=== PATIENT | male | born 1945 | race Two or more races ===

== ENCOUNTER 2016-10-19 08:23 | Inpatient (IN) | payer MEDICARE, BC ==
[~2016-10-19] VITALS: Ht 175.3 cm; Wt 71.9 kg
[2016-10-19] VITALS (26 sets, daily range): BP systolic 123–173; BP diastolic 72–110; PULSE 78–107; RESP 10–18; BMI 22.9
[2016-10-19] MEDS ORDERED: LIDOCAINE 1% (MDV) 20 ML INJ ONE (09:47)
[2016-10-19] MEDS ORDERED: FENTAnyl 50 MCG/ML VIAL ONE (09:47)
[2016-10-19] MEDS ORDERED: HEPARIN 1000 UNITS/ML 10 ML INJ ONE (09:47)
[2016-10-19] MEDS ORDERED: NITROGLYCERIN (IC) 100 MCG/ML INJ ONE (09:48)
[2016-10-19] MEDS ORDERED: MIDAZOLAM 1 MG/ML 2 ML INJ ONE ×2 (09:48→11:03)
[2016-10-19] MEDS ORDERED: VERAPAMIL 5 MG INJ ONE (09:48)
[2016-10-19] MEDS ORDERED: MEMA5TAB14 PO (10:29)
[2016-10-19] MEDS ORDERED: HYDR-3498 PO (10:29)
[2016-10-19] MEDS ORDERED: DOCU50CA8 PO (10:29)
[2016-10-19] MEDS ORDERED: ACET-2047 PO (10:29)
[2016-10-19] MEDS ORDERED: FAMO20TA18 PO (10:29)
[2016-10-19] MEDS ORDERED: ONDA2VIA31 IV (10:29)
[2016-10-19] MEDS ORDERED: ATOR40TA68 PO (10:29)
[2016-10-19] MEDS ORDERED: LORA2ORA2 PO (10:29)
[2016-10-19] MEDS ORDERED: QUET50TA16 PO (10:29)
[2016-10-19] MEDS ORDERED: SIN50200 PO (10:29)
[2016-10-19] MEDS ORDERED: ZINC113C9 TP (10:29)
[2016-10-19] MEDS ORDERED: MAGN2400 PO (10:29)
[2016-10-19] MEDS ORDERED: TRAZ50TA18 PO (10:29)
[2016-10-19] MEDS ORDERED: DIVA-16 PO ×2 (10:29)
[2016-10-19] MEDS ORDERED: FOLI1POW PO (10:29)
[2016-10-19] MEDS ORDERED: BISA5TAB6 PO (10:29)
[2016-10-19] MEDS ORDERED: [UNRECOGNIZED DRUG - CODE] PO (10:29)
[2016-10-19] MEDS ORDERED: ASPI325T4 PO (10:29)
[2016-10-19] MEDS ORDERED: GABA300S PO (10:29)
--- NOTE | 2016-10-19 10:30 | CONS ---
Date/Time of Note Date/Time of Note DATE: 10/19/16 TIME: 10:20 Assessment/Plan Assessment/Plan Chief Complaint/Hosp Course NSTEMI: Trop peaked at 120. Transient anterior ST elevation. Echo with EF 50% and LAD territory hypokinesis but no akinesis. Cath for evaluation. Parkinson's with dementia HTN HL -cath today for evaluation -ASA, lipitor -metoprolol -further recs based on cath findings Problems: Consultation Date/Type/Reason Admit Date/Time Oct 19, 2016 at 08:26 Initial Consult Date Type of Consultation: Cardiology 24 HR Interval Summary Free Text/Dictation 71 yo M with a h/o parkinson's with dementia, HTN, HL, who presented due to altered mentation. He was eventually found to have an NSTEMI. His second trop was 5 so an EKG was obtained and showed an anterior STEMI. He was supposed to be transferred to [facility] but he was refused as the ST elevations improved/ resolved. His troponins eventually peaked around 120. His repeat echo showed hypokinesis of the anterior wall/apex but no akinesis and EF of 50%. No q waves on EKG. The pt and family consented to cardiac cath so pt was transferred to the [facility] ICU and is planned to have a cardiac cath for evaluation. He had DEMETRIUS on this admission but Cr is now down to 1.0. The pt alert and mostly cooperative but he exhibits paranoid behavior. Currently no symptoms. Exam/Review of Systems Vital Signs Vitals Vital Signs Date Time Temp Pulse Resp B/P Pulse Ox O2 Delivery O2 Flow Rate FiO2 10/19/16 09:45 85 16 159/86 100 Room Air 10/19/16 08:03 98.6 Exam Constitutional: alert Psych: no complaints Head: atraumatic, normocephalic Neck: No jvd Respiratory: clear to auscultation, No crackles/rales Cardiovascular: regular rate and rhythm, No edema, No systolic murmur Gastrointestinal: non-tender, soft Neurological: nl speech, No nl mental status (agitated ) SUDARSHAN WAITE Oct 19, 2016 10:30
[2016-10-19] MEDS ORDERED: IOHEXOL 350MG/ML 50 ML BTL ONE (11:17)
[2016-10-19] MEDS ORDERED: BIVALIRUDIN 250MG /NS 50 ML 50 ML IVPB ONE (11:17)
[2016-10-19] MEDS ORDERED: ASPIRIN 325 MG TAB ONE (11:27)
[2016-10-19] MEDS ORDERED: CLOPIDOGREL 300 MG TAB ONE (11:27)
[2016-10-19] MEDS ORDERED: SOD CHLORIDE 0.9% 1,000 ML IV SCH (11:58)
[2016-10-19] MEDS ORDERED: morphine 2 MG INJ IV PRN (12:00)
--- NOTE | 2016-10-19 12:01 | OPR ---
Date/Time of Note Date/Time of Note DATE: 10/19/16 TIME: 12:00 Operative Report Free Text/Dictation Procedure Date:10/19/2016 Procedures Performed: 1)Left heart catheterization with selective left and right coronary angiography. 2)Left ventricle angiography 3)Balloon angioplasty and stenting of the prox RCA with a Synergy 3.0 x 16 drug- eluting stent. 4)Selective right femoral angiography and Perclose closure device placement. Pre-operative Diagnosis:NSTEMI Post-operative Diagnosis:NSTEMI Indications: Description of Procedure: After informed consent, the patient was brought to the cardiac catheterization lab. The procedure site was prepped and draped in usual manner. The patient was premedicated with a total of versed 3mg and fentanyl 75 mcg throughout the case. 2mL lidocaine was injected into the right wrist. Next using the posterior wall technique, the 6/5 macedonian sheath was inserted into the right radial artery. Due to severe subclavian tortuosity, the catheters could not be maneuvered to engage the coronaries and as this had a high likelihood of intervention, the decision was made to switch over to right femoral. 8 mL lidocaine was injected into the right groin. Next using the Seldinger technique , the 6 macedonian sheath was inserted into the right femoral artery. Next using the JL4 and Leon catheters, selective angiography of the left and right coronary arteries were obtained. The pigtail was then advanced into the ventricle and hemodynamics obtained. Left ventricle angiography was obtained. The decision was made to proceed with PCI of the RCA. Although the initial EKG had been concerning for anterior SC the baseline wander due to the pt's Parkinson's may explain it and he had inferior ST depressions. Also no clear lesion was identified in the LAD and the anterior wall motion on LV gram was normal. The prox RCA lesion and inferior wall motion abnormality seemed to be more clinically relevant. A 6 macedonian JR4 guide was advanced and engaged into the right coronary artery. After appropriate anticoagulation and antiplatelets were given, the BMW angioplasty wire was advanced past the lesion. Next the 2.5 X 12 balloon was used to dilate the lesion times 1 at a maximum of 12 sharla. Subsequently, the Synergy 3.0 x 16 stent was advanced to the lesion and deployed at 12 sharla. Next the stent was post dilated with the 3.25 X 8 noncompliant balloon times 3 at a maximum of 14 sharla. Final angiography revealed RHETT 3 flow, no edge dissection, and appropriate stent expansion. Next all equipment was removed and hemostasis was achieved by Perclose closure device in the groin after femoral angiography confirmed the sheath was in the common femoral artery and TR band for the right radial access site. Findings: Anatomy/Hemodynamics: Left main:large, no lesions LAD:ostial 30%, otherwise luminal irregularities Diagonal:luminal irregularities Circumflex:luminal irregularities Obtuse marginal: mid 30% RCA:prox to mid long stent with 70-80% eccentric ISR in the proximal segment. PDA:luminal irregularities LV angiography:EF 55%, hypokinesis of the mid to distal inferior wall., normal anterior motion LV:191/0 initially. No pullback gradient LVEDP:LVEDP 30 mmHg initially. 100mcg NTG through the catheter decreased the LVEDP to 2 mmHg. Contrast used:170 mL Fluoroscopy time:14 min Medications used: Versed 3mg Fentanyl 75 mcg radial cocktail: 5000 heparin, 200 NTG, 2.5 verapamil ASA 325mg plavix 600mg angiomax bolus plus drip NTG 100mcg x 1 Equipment used: 6 macedonian JR 4 guide BMW angioplasty wire 2 x 12 balloon Synergy 3.0 x 16 drug eluting stent 3.25x 8 noncompliant balloon Assessment: NSTEMI s/p PCI of prox RCA for in stent restenosis ?Transient anterior ST elevation.?artifact vs spasm vs recannalization. No significant LAD lesion and no corresponding wall motion abnormality Plan: -ICU observation -ASA 81mg indefinitely -plavix 75mg daily for 1 year -metoprolol, lipitor SUDARSHAN WAITE Oct 19, 2016 12:01
[2016-10-20] VITALS (24 sets, daily range): BP systolic 125–170; BP diastolic 69–108; PULSE 73–96; RESP 12–18
[2016-10-20] MEDS: ATORVASTATIN 40 MG TAB PO SCH ×2 (01:50→21:14)
[2016-10-20] MEDS: METOPROLOL 25 MG TAB PO SCH ×4 (01:51→21:14)
[2016-10-20 05:23] LABS: BASOPHILS % 0.2 % (0.0-2.0); EOSINOPHILS # 0.1 10^3/ul (0.0-0.5); EOSINOPHILS % 0.7 % (0.0-7.0); HEMATOCRIT 30.8 % (42.0-52.0); HEMOGLOBIN 10.1 g/dl (14.0-18.0); LYMPHOCYTES % 10.3 % (15.0-51.0); MEAN CORPUSCULAR HEMOGLOBIN 27.6 pg (29.0-33.0); MEAN CORPUSCULAR HGB CONC 32.8 g/dl (32.0-37.0); MEAN CORPUSCULAR VOLUME 84.2 fl (82.0-101.0); MEAN PLATELET VOLUME 11.3 fl (7.4-10.4); MONOCYTE # 0.6 10^3/ul (0.3-0.9); MONOCYTES % 6.7 % (0.0-11.0); NEUTROPHIL # 7.5 10^3/ul (1.6-7.5); NEUTROPHILS % 81.6 % (39.0-77.0); PLATELET COUNT 247 10^3/UL (140-415); RED BLOOD COUNT 3.66 10^6/ul (4.70-6.10); RED CELL DISTRIBUTION WIDTH 15.2 % (11.5-14.5); WHITE BLOOD COUNT 9.2 10^3/ul (4.8-10.8)
[2016-10-20 05:58] LABS: CALCIUM 9.4 mg/dl (8.4-10.2); CREATININE 1.01 mg/dl (0.61-1.24); MAGNESIUM 1.7 mg/dl (1.7-2.5); PHOSPHORUS 3.5 mg/dl (2.5-4.9); POTASSIUM 3.9 mmol/L (3.5-5.1)
[2016-10-20] MEDS ORDERED: HYDROCODONE/APAP (5/325) TAB PO PRN (08:00)
[2016-10-20] MEDS ORDERED: ACETAMINOPHEN 325 MG TAB PO PRN (08:00)
[2016-10-20] MEDS ORDERED: BISACODYL (EC) 5 MG TAB PO PRN (08:00)
--- NOTE | 2016-10-20 08:03 | QN ---
Documentation Comment pt seen and examined. h/p dictated KYLIE CONDON DO Oct 20, 2016 08:03
--- NOTE | 2016-10-20 08:03 | PN ---
Date/Time of Note Date/Time of Note DATE: 10/20/16 TIME: 07:56 Assessment/Plan VTE Prophylaxis VTE Prophylaxis Intervention: other Lines/Catheters IV Catheter Type (from Nrs): Peripheral IV Urinary Cath still in place: Yes Reason Cath still needed: other (indicate) Assessment/Plan Chief Complaint/Hosp Course 1. Non-STEMI status post cardiac cath with PCI to the RCA Continue current medical management with aspirin Plavix metoprolol Follow-up cardiology with recommendations Hypertension Continue current medical management Dyslipidemia Continue statin therapy Parkinson's disease with dementia Patient had CT scan outside hospital that showed increased ventricular size questionable hydrocephalus We will place a neurology consult for evaluation Consider MRI Dysphasia Places speech therapy evaluation Nonoliguric acute kidney injury Etiology is likely hemodynamics Renal function is improved with IV hydration Continue to monitor Hyponatremia Patient is a free water deficit of 1 L Continue to encourage free water intake Anemia Monitor H&H levels GI DVT prophylaxis Continue PPI and SCDs Bipolar disorder Continue valproic acid Problems: Subjective 24 Hr Interval Summary Free Text/Dictation Patient seen and examined No events overnight Patient status post cardiac cath with PCI Exam/Review of Systems Vital Signs Vitals Vital Signs Date Time Temp Pulse Resp B/P Pulse Ox O2 Delivery O2 Flow Rate FiO2 10/20/16 06:00 96 17 168/88 88 10/20/16 04:00 98.0 10/19/16 18:00 Room Air Intake and Output 10/19/16 10/19/16 10/20/16 15:00 23:00 07:00 Intake Total 300 ml 525 ml 1250 ml Output Total 690 ml 835 ml 596 ml Balance -390 ml -310 ml 654 ml Exam HEENT: Head is normocephalic, NECK: Supple. HEART: Irregular LUNGS: Show diminished breath sounds at base. ABDOMEN: Soft, nontender to palpation without rebound or guarding. EXTREMITIES: Negative for clubbing, cyanosis. DERMATOLOGIC: No rashes. MUSCULOSKELETAL: No joint effusions, NEUROLOGIC: No change in exam. Results Result Diagram: 10/20/16 0455 10/20/16 0455 Results 24 hrs Laboratory Tests Test 10/20/16 04:55 White Blood Count 9.2 Red Blood Count 3.66 L Hemoglobin 10.1 L Hematocrit 30.8 L Mean Corpuscular Volume 84.2 Mean Corpuscular Hemoglobin 27.6 L Mean Corpuscular Hemoglobin Concent 32.8 Red Cell Distribution Width 15.2 H Platelet Count 247 Mean Platelet Volume 11.3 H Neutrophils % 81.6 H Lymphocytes % 10.3 L Monocytes % 6.7 Eosinophils % 0.7 Basophils % 0.2 Nucleated Red Blood Cells % 0.0 Neutrophils # 7.5 Lymphocytes # 1.0 Monocytes # 0.6 Eosinophils # 0.1 Basophils # 0.0 Nucleated Red Blood Cells # 0.0 Sodium Level 148 H Potassium Level 3.9 Chloride Level 114 H Carbon Dioxide Level 19 L Anion Gap 19 H Blood Urea Nitrogen 12 Creatinine 1.01 Glucose Level 85 Calcium Level 9.4 Phosphorus Level 3.5 Magnesium Level 1.7 Medications Medications Current Medications Clopidogrel Bisulfate (plaVIX) 75 mg DAILY PO ; Start 10/20/16 at 09:00 Aspirin (Aspirin) 81 mg DAILY PO ; Start 10/20/16 at 09:00 Atorvastatin Calcium (Lipitor) 40 mg HS PO Last administered on 10/20/16 01:50 ; Admin Dose 40 MG; Start 10/19/16 at 21:00 Metoprolol Tartrate (Lopressor) 25 mg BID PO Last administered on 10/20/16 01: 51; Admin Dose 25 MG; Start 10/19/16 at 21:00 Morphine Sulfate (morphine) 2 mg Q2H PRN IV FOR NON CARDIAC PAIN (4-10); Start 10/19/16 at 12:00 KYLIE CONDON DO Oct 20, 2016 08:03
[2016-10-20 08:53] LABS: BILIRUBIN,INDIRECT 0.2 mg/dl (0-1.1); BILIRUBIN,TOTAL 0.2 mg/dl (0.2-1.3); TOTAL PROTEIN 5.6 g/dl (6.1-8.1)
[2016-10-20] MEDS ORDERED: CARBIDOPA/LEVODOPA 50-200 (CR) TAB PO SCH ×2 (09:00)
[2016-10-20] MEDS: ASPIRIN 81 MG TAB PO SCH ×2 (09:00→09:44)
[2016-10-20] MEDS: GABAPENTIN 300 MG CAP PO SCH ×4 (09:00→21:14)
[2016-10-20] MEDS: CLOPIDOGREL 75 MG TAB PO SCH ×3 (09:00→17:23)
[2016-10-20] MEDS ORDERED: DIVALPROEX (EC) 500 MG TAB PO SCH (09:00)
[2016-10-20] MEDS: DIVALPROEX (EC) 500 MG TAB PO SCH ×2 (09:00→18:26)
[2016-10-20] MEDS ORDERED: ONDANSETRON 4 MG INJ IV PRN (09:30)
[2016-10-20] MEDS: DOCUSATE SODIUM 100 MG CAP PO SCH ×2 (09:30→09:48)
[2016-10-20] MEDS: LORAZEPAM 0.5 MG TAB PO SCH ×3 (09:45→21:14)
[2016-10-20] MEDS: FAMOTIDINE 20 MG TAB PO SCH ×2 (09:45→21:14)
[2016-10-20] MEDS: DIVALPROEX (EC) 250 MG TAB PO SCH ×3 (09:45→14:00)
[2016-10-20] MEDS: MEMANTINE 5 MG TAB PO SCH ×3 (10:00→21:00)
[2016-10-20] MEDS ORDERED: CARBIDOPA/LEVODOPA 25-100 (CR) TAB PO SCH (10:00)
--- NOTE | 2016-10-20 10:33 | HP ---
DATE OF ADMISSION: 10/19/2016 CHIEF COMPLAINT: Chest pain, non-ST elevation myocardial infarction. HISTORY OF PRESENT ILLNESS: This is a 71-year-old male with a past medical history of Parkinson's, dementia, history of hypertension, dyslipidemia, history of bipolar disorder, who is being brought to [facility] to undergo cardiac catheterization. The patient's history began several days ago when the patient presented to an outside hospital and was found to have a non-STEMI. The patient had an elevated troponin. The patient, at that time, was supposed to be transferred to [facility] but refused. The patient's troponin at the outside facility peaked at 120. The patient had an echo, which showed a 50-percent ejection fraction and anterior wall akinesis. The patient, as a result, was medically managed and transferred to [facility] to undergo elective cardiac catheterization. It should be noted that at the outside facility, the patient had a CT scan of the brain, which showed enlarged ventricles, which may be due to atrophy versus questionable hydrocephalus. The patient was also noted to be in acute injury and was given IV fluids. Upon arrival to [facility], the patient was placed in intensive care unit for eventual cardiac catheterization. Upon my evaluation, the patient at this time is currently stable. Denies any fevers, chills, nausea, vomiting. The patient does have underlying dementia, and history was obtained by speaking to the patient's . PAST MEDICAL HISTORY: As stated above, history of Parkinson's, history of dyslipidemia, history of GERD, history of bipolar disorder, history of hypertension. PAST SURGICAL HISTORY: Previous cardiac catheterization. ALLERGIES: THE PATIENT IS ALLERGIC TO AMOXICILLIN. FAMILY HISTORY: Noncontributory. SOCIAL HISTORY: Does not drink, smoke, or do drugs. MEDICATIONS: Reviewed and reconciled. REVIEW OF SYSTEMS: A 14-point review of systems was done. There were no pertinent positives or negatives, other than noted in the HPI. PHYSICAL EXAMINATION: VITALS: Blood pressure 125/71, respirations 13, pulse ox 73, temperature 98.6. HEENT: Head is normocephalic. NECK: Supple. HEART: Regular rate. LUNGS: Show diminished breath sounds at the base. ABDOMEN: Soft, nontender to palpation. No rebound or guarding. EXTREMITIES: Negative for clubbing, cyanosis, or edema. DERMATOLOGIC: No rashes. MUSCULOSKELETAL: No joint effusion. NEUROLOGIC: The patient has a tremor of his hand, noted rigidity. LABORATORY: Shows a white count of 9.2, hemoglobin 10.1, hematocrit 30.8, platelet count 247. Sodium 148, potassium 2.9, chloride 114, BUN 12, creatinine 1.01. ASSESSMENT AND PLAN: This is a 71-year-old male who presents with: 1. Non-ST elevation myocardial. The patient is pending cardiac catheterization. Will follow up with cardiology for recommendations. 2. Hypertension. The patient will continue on current blood pressure regimen. 3. Parkinson's disease with dementia. The patient had an outside CT scan which showed increased ventricular size, questionable hydrocephalus. Plan is to get a neurologic consult for evaluation. Consider MRI. Continue to monitor. Continue current Parkinson's medication. 4. Bipolar disorder. Continue Valproic acid. 5. Dysphagia. We will place a speech therapy evaluation. 6. Dyslipidemia. Continue statin therapy. 7. Non-oliguric acute kidney injury. Etiology is likely from hemodynamics. We will check a urinalysis. Check urine electrolytes. Monitor renal function. 8. Anemia. Monitor hemoglobin and hematocrit levels. 9. Deep vein thrombosis prophylaxis. I spent 25 minutes with [id number] time with the patient's and the patient at bedside. The patient is a full code. Dictated By: Juanjose Alarcon DO /debby/cas /Document#: [id number]
[2016-10-20] MEDS: AL HYDROX/MG HYDROX/SIMETH 30 ML CUP PO SCH ×3 (12:00→23:20)
[2016-10-20] MEDS: CARBIDOPA/LEVODOPA 25-100 (CR) TAB PO SCH ×2 (12:15→21:15)
--- NOTE | 2016-10-20 12:26 | CONS ---
Date/Time of Note Date/Time of Note DATE: 10/20/16 TIME: 12:10 Assessment/Plan Assessment/Plan Chief Complaint/Hosp Course NSTEMI: Trop peaked at 120. Transient anterior ST elevation?. Echo with EF 50% and possible LAD territory hypokinesis but no akinesis. Cath showed no LAD lesion but a proximal RCA lesion and inferior wall motion abnormalities. A drug eluting stent was placed due to in stent restenosis. Pt was agreeable to taking meds prior to cardiac cath but now refuses. Parkinson's with dementia HTN HL -psych eval for competence -will try to get a hold of his to ask her for assistance. He is more cooperative at times and may be more agreeable to taking meds -ASA, plavix (most crucial to give to pt) -lipitor -metoprolol Problems: Consultation Date/Type/Reason Admit Date/Time Oct 19, 2016 at 08:26 Type of Consultation: Cardiology 24 HR Interval Summary Free Text/Dictation No o/n events. Refuses to take any meds and states he understands the risks including [place] and . I tried to reason with him for a long time. I could not get a hold of his . Exam/Review of Systems Vital Signs Vitals Vital Signs Date Time Temp Pulse Resp B/P Pulse Ox O2 Delivery O2 Flow Rate FiO2 10/20/16 10:00 89 15 170/93 89 Room Air 10/20/16 08:00 98.2 Intake and Output 10/19/16 10/19/16 10/20/16 15:00 23:00 07:00 Intake Total 300 ml 525 ml 1250 ml Output Total 690 ml 835 ml 596 ml Balance -390 ml -310 ml 654 ml Exam Constitutional: alert, No oriented Psych: no complaints Head: atraumatic, normocephalic Neck: No jvd Respiratory: clear to auscultation, No crackles/rales Cardiovascular: regular rate and rhythm, No edema, No systolic murmur Extremities: other (unable to examine groin as pt would not allow ) Neurological: No nl mental status Results Result Diagram: 10/20/16 0455 10/20/16 0455 Results 24 hrs Laboratory Tests Test 10/20/16 04:55 White Blood Count 9.2 Red Blood Count 3.66 L Hemoglobin 10.1 L Hematocrit 30.8 L Mean Corpuscular Volume 84.2 Mean Corpuscular Hemoglobin 27.6 L Mean Corpuscular Hemoglobin Concent 32.8 Red Cell Distribution Width 15.2 H Platelet Count 247 Mean Platelet Volume 11.3 H Neutrophils % 81.6 H Lymphocytes % 10.3 L Monocytes % 6.7 Eosinophils % 0.7 Basophils % 0.2 Nucleated Red Blood Cells % 0.0 Neutrophils # 7.5 Lymphocytes # 1.0 Monocytes # 0.6 Eosinophils # 0.1 Basophils # 0.0 Nucleated Red Blood Cells # 0.0 Sodium Level 148 H Potassium Level 3.9 Chloride Level 114 H Carbon Dioxide Level 19 L Anion Gap 19 H Blood Urea Nitrogen 12 Creatinine 1.01 Glucose Level 85 Calcium Level 9.4 Phosphorus Level 3.5 Magnesium Level 1.7 Total Bilirubin 0.2 Direct Bilirubin 0.00 Indirect Bilirubin 0.2 Aspartate Amino Transf (AST/SGOT) 63 H Alanine Aminotransferase (ALT/SGPT) 71 H Alkaline Phosphatase 48 Total Protein 5.6 L Albumin 3.0 L Medications Medications Current Medications Clopidogrel Bisulfate (plaVIX) 75 mg DAILY PO ; Start 10/20/16 at 09:00 Aspirin (Aspirin) 81 mg DAILY PO ; Start 10/20/16 at 09:00 Atorvastatin Calcium (Lipitor) 40 mg HS PO Last administered on 10/20/16 01:50 ; Admin Dose 40 MG; Start 10/19/16 at 21:00 Metoprolol Tartrate (Lopressor) 25 mg BID PO Last administered on 10/20/16 01: 51; Admin Dose 25 MG; Start 10/19/16 at 21:00 Morphine Sulfate (morphine) 2 mg Q2H PRN IV FOR NON CARDIAC PAIN (4-10); Start 10/19/16 at 12:00 Acetaminophen (Tylenol Tab) 650 mg Q6H PRN PO PAIN AND OR ELEVATED TEMP; Start 10/20/16 at 08:00 Bisacodyl (Dulcolax) 10 mg DAILY PRN PO CONSTIPATION; Start 10/20/16 at 08:00 Divalproex Sodium (Depakote) 500 mg DAILY@19 PO ; Start 10/20/16 at 09:00 Famotidine (Pepcid) 20 mg BID PO Last administered on 10/20/16 09:45; Admin Dose 20 MG; Start 10/20/16 at 09:00 Lorazepam (Ativan) 0.25 mg TID PO ; Start 10/20/16 at 09:45 Memantine (Namenda) 5 mg BID PO ; Start 10/20/16 at 10:00 Ondansetron HCl (Zofran Inj) 4 mg Q6H PRN IV NAUSEA; Start 10/20/16 at 09:30 Quetiapine Fumarate (Seroquel) 50 mg HS PO ; Start 10/20/16 at 21:00 Trazodone HCl (Desyrel) 25 mg QHS PO ; Start 10/20/16 at 21:00 Docusate Sodium (Colace) 100 mg DAILY PO ; Start 10/20/16 at 09:30 Folic Acid (Folic Acid) 1 mg DAILY PO ; Start 10/21/16 at 09:30 Gabapentin (Neurontin) 300 mg TID PO ; Start 10/20/16 at 09:00 Al Hydrox/Mg Hydrox/Simethicone (Mag-Al Plus) 30 ml Q6 PO ; Start 10/20/16 at 12 :00 Magnesium Hydroxide (Milk Of Mag) 30 ml HS PO ; Start 10/20/16 at 21:00 Divalproex Sodium (Depakote) 250 mg BID@09,14 PO ; Start 10/20/16 at 10:30 Carbidopa/Levodopa (Sinemet Cr (25/ 100)) 1 tab TID PO ; Start 10/20/16 at 13:00 SUDARSHAN WAITE Oct 20, 2016 12:26
[2016-10-20] MEDS: MAGNESIUM HYDROXIDE 30ML CUP PO SCH (21:00)
[2016-10-20] MEDS ORDERED: traZODone 50 MG TAB PO SCH (21:00)
[2016-10-20] MEDS ORDERED: QUETIAPINE 25 MG TAB PO SCH (21:00)
[2016-10-20 21:59] LABS: ADD UMIC NO; UR ASCORBIC ACID NEGATIVE (NEGATIVE); UR BILIRUBIN (Dip) NEGATIVE (NEGATIVE); UR BLOOD (Dip) NEGATIVE (NEGATIVE); UR CLARITY CLEAR (CLEAR); UR COLOR YELLOW (YELLOW); UR GLUCOSE (Dip) NEGATIVE (NEGATIVE); UR KETONES (Dip) 1+ mg/dL (NEGATIVE); UR LEUKOCYTE ESTERASE (Dip) NEGATIVE Leu/ul (NEGATIVE); UR NITRITE (Dip) NEGATIVE (NEGATIVE); UR SPECIFIC GRAVITY (Dip) 1.014 (1.003-1.030); UR TOTAL PROTEIN (Dip) NEGATIVE (NEGATIVE); UR UROBILINOGEN (Dip) 1+ mg/dL (NEGATIVE)
--- NOTE | 2016-10-20 22:15 | CONS ---
Date/Time of Note Date/Time of Note DATE: 10/20/16 TIME: 22:12 Assessment Additional comments: full consultaion dictated [id number] Dementia, parkinsonism, ventriculomegaly on CT - not acute. Pt is agitated at times, paranoid, not cooperative, per nursing ,won't tolerate MRI, could be done on outpt basis. I'll restart home stroger dose seroquel, zyprexa, as per [facility] notes JULIETA PAGE MD Oct 20, 2016 22:15
[2016-10-20] MEDS: OLANZAPINE 5 MG TAB PO SCH (23:20)
[2016-10-21] VITALS (39 sets, daily range): BP systolic 84–169; BP diastolic 47–100; PULSE 48–150; RESP 8–24
[2016-10-21] MEDS: AL HYDROX/MG HYDROX/SIMETH 30 ML CUP PO SCH ×4 (05:09→23:21)
--- NOTE | 2016-10-21 08:18 | PN ---
Date/Time of Note Date/Time of Note DATE: 10/21/16 TIME: 08:16 Assessment/Plan VTE Prophylaxis VTE Prophylaxis Intervention: other Lines/Catheters IV Catheter Type (from Nrs): Saline Lock Urinary Cath still in place: Yes Reason Cath still needed: other (indicate) Assessment/Plan Chief Complaint/Hosp Course 1. Non-STEMI status post cardiac cath with PCI to the RCA Continue current medical management with aspirin Plavix metoprolol Patient is noncompliant with medications Neurology evaluated patient, telemetry psych pending May require sedation with NG tube placement Follow-up cardiology with recommendations Hypertension Continue current medical management Dyslipidemia Continue statin therapy Parkinson's disease with dementia Patient had CT scan outside hospital that showed increased ventricular size questionable hydrocephalus Appreciate neurology evaluation Patient will not tolerate MRI Dysphasia Places speech therapy evaluation Nonoliguric acute kidney injury Etiology is likely hemodynamics Renal function is improved with IV hydration Continue to monitor Hypernatremia Patient is a free water deficit of 1 L Continue to encourage free water intake Anemia Monitor H&H levels GI DVT prophylaxis Continue PPI and SCDs Bipolar disorder Continue valproic acid Transaminitis Possibly medication related To monitor Problems: Subjective 24 Hr Interval Summary Free Text/Dictation Patient is refusing to take oral medications Discussed case with cardiology patient may require sedation with NG tube placement in order to be given Plavix Neurology consulted appreciate the recommendations A telemetry psych consult was placed Exam/Review of Systems Vital Signs Vitals Vital Signs Date Time Temp Pulse Resp B/P Pulse Ox O2 Delivery O2 Flow Rate FiO2 10/21/16 06:00 139/69 100 Room Air 10/21/16 05:00 80 14 10/21/16 04:00 98.2 Intake and Output 10/20/16 10/20/16 10/21/16 15:00 23:00 07:00 Intake Total 200 ml 100 ml 100 ml Output Total 835 ml 435 ml 380 ml Balance -635 ml -335 ml -280 ml Exam HEENT: Head is normocephalic, NECK: Supple. HEART: Irregular LUNGS: Show diminished breath sounds at base. ABDOMEN: Soft, nontender to palpation without rebound or guarding. EXTREMITIES: Negative for clubbing, cyanosis. DERMATOLOGIC: No rashes. MUSCULOSKELETAL: No joint effusions, NEUROLOGIC: No change in exam. Results Result Diagram: 10/20/16 0455 10/20/16 0455 Results 24 hrs Laboratory Tests Test 10/20/16 18:15 Urine Color YELLOW Urine Clarity CLEAR Urine pH 5.0 Urine Specific [place] 1.014 Urine Ketones 1+ H Urine Nitrite NEGATIVE Urine Bilirubin NEGATIVE Urine Urobilinogen 1+ H Urine Leukocyte Esterase NEGATIVE Urine Hemoglobin NEGATIVE Urine Random Creatinine 50.15 Urine Random Sodium 111 H Urine Glucose NEGATIVE Urine Total Protein 20.0 H Medications Medications Current Medications Clopidogrel Bisulfate (plaVIX) 75 mg DAILY PO Last administered on 10/20/16 17 :23; Admin Dose 75 MG; Start 10/20/16 at 09:00 Aspirin (Aspirin) 81 mg DAILY PO ; Start 10/20/16 at 09:00 Atorvastatin Calcium (Lipitor) 40 mg HS PO Last administered on 10/20/16 21:14 ; Admin Dose 40 MG; Start 10/19/16 at 21:00 Metoprolol Tartrate (Lopressor) 25 mg BID PO Last administered on 10/20/16 21: 14; Admin Dose 25 MG; Start 10/19/16 at 21:00 Morphine Sulfate (morphine) 2 mg Q2H PRN IV FOR NON CARDIAC PAIN (4-10); Start 10/19/16 at 12:00 Acetaminophen (Tylenol Tab) 650 mg Q6H PRN PO PAIN AND OR ELEVATED TEMP; Start 10/20/16 at 08:00 Bisacodyl (Dulcolax) 10 mg DAILY PRN PO CONSTIPATION; Start 10/20/16 at 08:00 Divalproex Sodium (Depakote) 500 mg DAILY@19 PO ; Start 10/20/16 at 09:00 Famotidine (Pepcid) 20 mg BID PO Last administered on 10/20/16 21:14; Admin Dose 20 MG; Start 10/20/16 at 09:00 Lorazepam (Ativan) 0.25 mg TID PO Last administered on 10/20/16 21:14; Admin Dose 0.25 MG; Start 10/20/16 at 09:45 Memantine (Namenda) 5 mg BID PO ; Start 10/20/16 at 10:00 Ondansetron HCl (Zofran Inj) 4 mg Q6H PRN IV NAUSEA; Start 10/20/16 at 09:30 Trazodone HCl (Desyrel) 25 mg QHS PO Last administered on 10/20/16 21:15; Admin Dose 25 MG; Start 10/20/16 at 21:00 Docusate Sodium (Colace) 100 mg DAILY PO ; Start 10/20/16 at 09:30 Folic Acid (Folic Acid) 1 mg DAILY PO ; Start 10/21/16 at 09:30 Gabapentin (Neurontin) 300 mg TID PO Last administered on 10/20/16 21:14; Admin Dose 300 MG; Start 10/20/16 at 09:00 Al Hydrox/Mg Hydrox/Simethicone (Mag-Al Plus) 30 ml Q6 PO ; Start 10/20/16 at 12 :00 Magnesium Hydroxide (Milk Of Mag) 30 ml HS PO ; Start 10/20/16 at 21:00 Divalproex Sodium (Depakote) 250 mg BID@,14 PO ; Start 10/20/16 at 10:30 Carbidopa/Levodopa (Sinemet Cr (25/ 100)) 1 tab TID PO Last administered on 21:15; Admin Dose 1 TAB; Start 10/20/16 at 13:00 Quetiapine Fumarate (Seroquel) 100 mg TID PO ; Start 10/21/16 at 09:00 Olanzapine (Zyprexa) 7.5 mg BID PO ; Start 10/20/16 at 23:30 KYLIE CONDON DO Oct 21, 2016 08:18
[2016-10-21] MEDS: DOCUSATE SODIUM 100 MG CAP PO SCH (09:00)
[2016-10-21] MEDS: FOLIC ACID 1 MG TAB PO SCH (09:30)
[2016-10-21] MEDS: CLOPIDOGREL 75 MG TAB PO SCH (09:51)
[2016-10-21] MEDS: GABAPENTIN 300 MG CAP PO SCH ×3 (09:51→21:01)
[2016-10-21] MEDS: MEMANTINE 5 MG TAB PO SCH ×2 (09:52→21:00)
[2016-10-21] MEDS: OLANZAPINE 5 MG TAB PO SCH (09:52)
[2016-10-21] MEDS: FAMOTIDINE 20 MG TAB PO SCH ×2 (09:52→21:01)
[2016-10-21] MEDS: ASPIRIN 81 MG TAB PO SCH (09:52)
[2016-10-21] MEDS: METOPROLOL 25 MG TAB PO SCH ×2 (09:52→21:00)
[2016-10-21] MEDS: QUETIAPINE 100 MG TAB PO SCH ×2 (09:52→13:33)
[2016-10-21] MEDS: CARBIDOPA/LEVODOPA 25-100 (CR) TAB PO SCH ×3 (09:52→21:01)
[2016-10-21] MEDS: DIVALPROEX (EC) 250 MG TAB PO SCH ×2 (09:59→13:33)
[2016-10-21] MEDS: LORAZEPAM 0.5 MG TAB PO SCH ×3 (09:59→21:00)
[2016-10-21 10:46] LABS: BASOPHILS % 0.4 % (0.0-2.0); EOSINOPHILS # 0.1 10^3/ul (0.0-0.5); EOSINOPHILS % 0.6 % (0.0-7.0); HEMATOCRIT 28.9 % (42.0-52.0); HEMOGLOBIN 9.3 g/dl (14.0-18.0); LYMPHOCYTES # 0.8 10^3/ul (0.8-2.9); LYMPHOCYTES % 10.5 % (15.0-51.0); MEAN CORPUSCULAR HEMOGLOBIN 27.3 pg (29.0-33.0); MEAN CORPUSCULAR HGB CONC 32.2 g/dl (32.0-37.0); MEAN CORPUSCULAR VOLUME 84.8 fl (82.0-101.0); MEAN PLATELET VOLUME 11.5 fl (7.4-10.4); MONOCYTE # 0.5 10^3/ul (0.3-0.9); MONOCYTES % 6.6 % (0.0-11.0); NEUTROPHIL # 6.5 10^3/ul (1.6-7.5); NEUTROPHILS % 81.1 % (39.0-77.0); PLATELET COUNT 237 10^3/UL (140-415); RED BLOOD COUNT 3.41 10^6/ul (4.70-6.10); RED CELL DISTRIBUTION WIDTH 15.6 % (11.5-14.5)
[2016-10-21 11:11] LABS: CALCIUM 9.5 mg/dl (8.4-10.2); CREATININE 0.89 mg/dl (0.61-1.24); POTASSIUM 3.6 mmol/L (3.5-5.1)
--- NOTE | 2016-10-21 13:00 | CONS ---
Date/Time of Note Date/Time of Note DATE: 10/21/16 TIME: 12:58 Assessment/Plan Assessment/Plan Chief Complaint/Hosp Course NSTEMI: Trop peaked at 120. Transient anterior ST elevation?. Echo with EF 50% and possible LAD territory hypokinesis but no akinesis. Cath showed no LAD lesion but a proximal RCA lesion and inferior wall motion abnormalities. A drug eluting stent was placed due to in-stent restenosis. Pt was agreeable to taking meds prior to cardiac cath, then refused. Now was convinced to take it. Compliance remains an issue care home. Parkinson's with dementia: refusing to take meds at times HTN HL -f/u psych eval -ASA, plavix (most crucial to give to pt) -lipitor -metoprolol Problems: Consultation Date/Type/Reason Admit Date/Time Oct 19, 2016 at 08:26 Type of Consultation: Cardiology 24 HR Interval Summary Free Text/Dictation Somehow took his plavix last night and all his meds this am (crushed into his orange juice). Pt had morphine and is sleeping. Tele psych eval pending Exam/Review of Systems Vital Signs Vitals Vital Signs Date Time Temp Pulse Resp B/P Pulse Ox O2 Delivery O2 Flow Rate FiO2 10/21/16 11:00 64 10 116/65 100 Room Air 10/21/16 08:00 98.3 Intake and Output 10/20/16 10/20/16 10/21/16 15:00 23:00 07:00 Intake Total 200 ml 100 ml 100 ml Output Total 835 ml 435 ml 430 ml Balance -635 ml -335 ml -330 ml Exam Constitutional: No alert (sleeping ) Head: atraumatic, normocephalic Neck: No jvd Respiratory: clear to auscultation, No crackles/rales Cardiovascular: regular rate and rhythm, No edema, No systolic murmur Gastrointestinal: non-tender, soft, No distended Extremities: other (right femoral site without hematoma ) Results Result Diagram: 10/21/16 1033 10/21/16 1033 Results 24 hrs Laboratory Tests Test 10/20/16 18:15 10/21/16 10:33 Urine Color YELLOW Urine Clarity CLEAR Urine pH 5.0 Urine Specific [place] 1.014 Urine Ketones 1+ H Urine Nitrite NEGATIVE Urine Bilirubin NEGATIVE Urine Urobilinogen 1+ H Urine Leukocyte Esterase NEGATIVE Urine Hemoglobin NEGATIVE Urine Random Creatinine 50.15 Urine Random Sodium 111 H Urine Glucose NEGATIVE Urine Total Protein 20.0 H White Blood Count 8.0 Red Blood Count 3.41 L Hemoglobin 9.3 L Hematocrit 28.9 L Mean Corpuscular Volume 84.8 Mean Corpuscular Hemoglobin 27.3 L Mean Corpuscular Hemoglobin Concent 32.2 Red Cell Distribution Width 15.6 H Platelet Count 237 Mean Platelet Volume 11.5 H Neutrophils % 81.1 H Lymphocytes % 10.5 L Monocytes % 6.6 Eosinophils % 0.6 Basophils % 0.4 Nucleated Red Blood Cells % 0.0 Neutrophils # 6.5 Lymphocytes # 0.8 Monocytes # 0.5 Eosinophils # 0.1 Basophils # 0.0 Nucleated Red Blood Cells # 0.0 Sodium Level 145 H Potassium Level 3.6 Chloride Level 109 Carbon Dioxide Level 20 L Anion Gap 20 H Blood Urea Nitrogen 15 Creatinine 0.89 Glucose Level 82 Calcium Level 9.5 Medications Medications Current Medications Clopidogrel Bisulfate (plaVIX) 75 mg DAILY PO Last administered on 10/21/16 09 :51; Admin Dose 75 MG; Start 10/20/16 at 09:00 Aspirin (Aspirin) 81 mg DAILY PO Last administered on 10/21/16 09:52; Admin Dose 81 MG; Start 10/20/16 at 09:00 Atorvastatin Calcium (Lipitor) 40 mg HS PO Last administered on 10/20/16 21:14 ; Admin Dose 40 MG; Start 10/19/16 at 21:00 Metoprolol Tartrate (Lopressor) 25 mg BID PO Last administered on 10/21/16 09: 52; Admin Dose 25 MG; Start 10/19/16 at 21:00 Morphine Sulfate (morphine) 2 mg Q2H PRN IV FOR NON CARDIAC PAIN (4-10) Last administered on 10/21/16 09:51; Admin Dose 2 MG; Start 10/19/16 at 12:00 Acetaminophen (Tylenol Tab) 650 mg Q6H PRN PO PAIN AND OR ELEVATED TEMP; Start 10/20/16 at 08:00 Bisacodyl (Dulcolax) 10 mg DAILY PRN PO CONSTIPATION; Start 10/20/16 at 08:00 Divalproex Sodium (Depakote) 500 mg DAILY@19 PO ; Start 10/20/16 at 09:00 Famotidine (Pepcid) 20 mg BID PO Last administered on 10/21/16 09:52; Admin Dose 20 MG; Start 10/20/16 at 09:00 Lorazepam (Ativan) 0.25 mg TID PO Last administered on 10/21/16 09:59; Admin Dose 0.25 MG; Start 10/20/16 at 09:45 Memantine (Namenda) 5 mg BID PO Last administered on 10/21/16 09:52; Admin Dose 5 MG; Start 10/20/16 at 10:00 Ondansetron HCl (Zofran Inj) 4 mg Q6H PRN IV NAUSEA; Start 10/20/16 at 09:30 Trazodone HCl (Desyrel) 25 mg QHS PO Last administered on 10/20/16 21:15; Admin Dose 25 MG; Start 10/20/16 at 21:00 Docusate Sodium (Colace) 100 mg DAILY PO ; Start 10/20/16 at 09:30 Folic Acid (Folic Acid) 1 mg DAILY PO ; Start 10/21/16 at 09:30 Gabapentin (Neurontin) 300 mg TID PO Last administered on 10/21/16 09:51; Admin Dose 300 MG; Start 10/20/16 at 09:00 Al Hydrox/Mg Hydrox/Simethicone (Mag-Al Plus) 30 ml Q6 PO ; Start 10/20/16 at 12 :00 Magnesium Hydroxide (Milk Of Mag) 30 ml HS PO ; Start 10/20/16 at 21:00 Divalproex Sodium (Depakote) 250 mg BID@,14 PO Last administered on 09:59; Admin Dose 250 MG; Start 10/20/16 at 10:30 Carbidopa/Levodopa (Sinemet Cr (25/ 100)) 1 tab TID PO Last administered on 09:52; Admin Dose 1 TAB; Start 10/20/16 at 13:00 Quetiapine Fumarate (Seroquel) 100 mg TID PO Last administered on 10/21/16 09: 52; Admin Dose 100 MG; Start 10/21/16 at 09:00 Olanzapine (Zyprexa) 7.5 mg BID PO Last administered on 10/21/16 09:52; Admin Dose 7.5 MG; Start 10/20/16 at 23:30; Status Future hold SUDARSHAN WAITE Oct 21, 2016 13:00
[2016-10-21] MEDS: DIVALPROEX (EC) 500 MG TAB PO SCH (17:21)
[2016-10-21] MEDS ORDERED: BIVALIRUDIN 250MG /NS 50 ML 50 ML IVPB ONE (18:02)
[2016-10-21] MEDS ORDERED: MAGNESIUM SULFATE 2 GM/50 ML 50 ML ONE (18:14)
[2016-10-21] MEDS ORDERED: MAGNESIUM SULFATE 2 GM/50 ML 50 ML IVPB ONE ×2 (18:30→20:30)
[2016-10-21 19:31] LABS: CALCIUM 9.2 mg/dl (8.4-10.2); CREATININE 0.92 mg/dl (0.61-1.24); POTASSIUM 3.5 mmol/L (3.5-5.1)
[2016-10-21] MEDS: DOPamine-D5W 1.6 MG/ML 250 ML IV SCH (20:04)
[2016-10-21] MEDS: ATORVASTATIN 40 MG TAB PO SCH (21:00)
[2016-10-21] MEDS: MAGNESIUM HYDROXIDE 30ML CUP PO SCH (21:00)
[2016-10-22] VITALS (93 sets, daily range): BP systolic 76–134; BP diastolic 42–96; PULSE 57–135; RESP 0–39
[2016-10-22 01:47] LABS: CALCIUM 9.7 mg/dl (8.4-10.2); CREATININE 0.91 mg/dl (0.61-1.24); POTASSIUM 3.8 mmol/L (3.5-5.1)
[2016-10-22] MEDS: DOPamine-D5W 1.6 MG/ML 250 ML IV SCH (05:09)
[2016-10-22] MEDS ORDERED: NITROGLYCERIN (SL) 0.4 MG TAB SL ONE (06:00)
[2016-10-22] MEDS ORDERED: NITROGLYCERIN (SL) 0.4 MG TAB ONE (06:03)
[2016-10-22 06:11] LABS: BASOPHIL # 0.1 10^3/ul (0.0-0.1); BASOPHILS % 0.5 % (0.0-2.0); EOSINOPHILS # 0.1 10^3/ul (0.0-0.5); EOSINOPHILS % 1.3 % (0.0-7.0); HEMATOCRIT 38.1 % (42.0-52.0); HEMOGLOBIN 12.3 g/dl (14.0-18.0); LYMPHOCYTES # 1.2 10^3/ul (0.8-2.9); LYMPHOCYTES % 10.5 % (15.0-51.0); MEAN CORPUSCULAR HEMOGLOBIN 27.8 pg (29.0-33.0); MEAN CORPUSCULAR HGB CONC 32.3 g/dl (32.0-37.0); MEAN CORPUSCULAR VOLUME 86.2 fl (82.0-101.0); MEAN PLATELET VOLUME 11.2 fl (7.4-10.4); MONOCYTE # 0.9 10^3/ul (0.3-0.9); MONOCYTES % 8.1 % (0.0-11.0); NEUTROPHIL # 8.6 10^3/ul (1.6-7.5); NEUTROPHILS % 78.9 % (39.0-77.0); PLATELET COUNT 352 10^3/UL (140-415); RED BLOOD COUNT 4.42 10^6/ul (4.70-6.10); RED CELL DISTRIBUTION WIDTH 15.8 % (11.5-14.5); WHITE BLOOD COUNT 10.9 10^3/ul (4.8-10.8)
[2016-10-22] MEDS: AL HYDROX/MG HYDROX/SIMETH 30 ML CUP PO SCH ×3 (06:26→18:00)
[2016-10-22 06:51] LABS: ALBUMIN 3.9 g/dl (3.3-4.9); BILIRUBIN,INDIRECT 0.4 mg/dl (0-1.1); BILIRUBIN,TOTAL 0.4 mg/dl (0.2-1.3); TOTAL PROTEIN 6.6 g/dl (6.1-8.1)
[2016-10-22 06:58] LABS: CALCIUM 10.1 mg/dl (8.4-10.2); CREATININE 0.97 mg/dl (0.61-1.24); MAGNESIUM 2.6 mg/dl (1.7-2.5); PHOSPHORUS 3.5 mg/dl (2.5-4.9); POTASSIUM 3.8 mmol/L (3.5-5.1)
--- NOTE | 2016-10-22 07:42 | CONS ---
Date/Time of Note Date/Time of Note DATE: 10/22/16 TIME: 07:06 Assessment/Plan Assessment/Plan Chief Complaint/Hosp Course Transient anterior ST elevation: occurred during initial hospitalization and then resolved spontaneously. Cath did not show an LAD lesion. LV gram without anterior wall motion abnormalities. The pt had recurrence in the setting of tachycardia (130s) and dopamine. Seemed to resolve after NTG and HR improvement from decreasing dopamine so unclear which was useful but coronary vasospasm is a possibility. Torsades/PMVT: bradycardia driven in setting of QTC ~600 due to psych meds. When HR is >70 on dopamine, no recurrence Prolonged QTc: due to psych meds NSTEMI: Trop peaked at 120. Transient anterior ST elevation?. Echo with EF 50% and possible LAD territory hypokinesis but no akinesis. Cath showed no LAD lesion but a proximal RCA lesion and inferior wall motion abnormalities. A drug eluting stent was placed due to in-stent restenosis. Pt was agreeable to taking meds prior to cardiac cath, then refused. Now was convinced to take it. Compliance remains an issue retirement. Parkinson's with dementia: refusing to take meds at times HTN HL -trend trops for now -start imdur 30mg daily -continue dopamine with goal HR >70-80. Can also consider isuprel -d/c all psych meds and antiemetics -keep Mg >2.2, K >4 -ASA, plavix (most crucial to give to pt and seems to take it when crushed with orange juice) -lipitor -d/c metoprolol >1 hour of critical care time for management and decision making Problems: Consultation Date/Type/Reason Admit Date/Time Oct 19, 2016 at 08:26 Type of Consultation: Cardiology 24 HR Interval Summary Free Text/Dictation Yesterday evening and overnight had multiple episodes of PMVT/torsades. QTc ~ 600. Looked to be bradycardia driven. Dopamine started. Did well for a while, then HR was in the 50-60s again and had more episodes. No recurrence since dopamine increased. However the pt's HR had increased to the 130s and after one of the tele leads was changed, he was noted to have ST elevation in lead V1 so an EKG was obtained. The EKG was concerning for anterior STEMI. The pt was asymptomatic (alert and oriented x3 though not always cooperative). The dopamine was decreased and his HR improved to 100 and repeat EKG showed resolution of ST elevations. Exam/Review of Systems Vital Signs Vitals Vital Signs Date Time Temp Pulse Resp B/P Pulse Ox O2 Delivery O2 Flow Rate FiO2 10/22/16 06:15 96 11 95/53 95 10/22/16 05:00 2.0 10/22/16 04:00 98.2 10/21/16 18:00 Room Air Intake and Output 10/21/16 10/21/16 10/22/16 15:00 23:00 07:00 Intake Total 150 ml 265 ml 102 ml Output Total 577 ml 520 ml 295 ml Balance -427 ml -255 ml -193 ml Exam Constitutional: alert, oriented Psych: no complaints Head: atraumatic, normocephalic Neck: No jvd Respiratory: clear to auscultation, No crackles/rales Cardiovascular: regular rate and rhythm, No edema, No systolic murmur Gastrointestinal: non-tender, soft Neurological: nl mental status, nl speech Results EKG: sinus tachycardia, ST elevation V1-V3, resolution of deep TW inversions EKG2: NSR, no ST elevation, QTc 600, deep TW inversions in precordial leads Result Diagram: 10/22/16 0548 10/22/16 0120 Results 24 hrs Laboratory Tests Test 10/21/16 10:33 10/21/16 18:50 10/22/16 01:20 10/22/16 05:48 White Blood Count 8.0 10.9 #H Red Blood Count 3.41 L 4.42 #L Hemoglobin 9.3 L 12.3 #L Hematocrit 28.9 L 38.1 #L Mean Corpuscular Volume 84.8 86.2 Mean Corpuscular Hemoglobin 27.3 L 27.8 L Mean Corpuscular Hemoglobin Concent 32.2 32.3 Red Cell Distribution Width 15.6 H 15.8 H Platelet Count 237 352 # Mean Platelet Volume 11.5 H 11.2 H Neutrophils % 81.1 H 78.9 H Lymphocytes % 10.5 L 10.5 L Monocytes % 6.6 8.1 Eosinophils % 0.6 1.3 Basophils % 0.4 0.5 Nucleated Red Blood Cells % 0.0 0.0 Neutrophils # 6.5 8.6 H Lymphocytes # 0.8 1.2 Monocytes # 0.5 0.9 Eosinophils # 0.1 0.1 Basophils # 0.0 0.1 Nucleated Red Blood Cells # 0.0 0.0 Sodium Level 145 H 144 145 H 149 H Potassium Level 3.6 3.5 3.8 3.8 Chloride Level 109 109 109 112 H Carbon Dioxide Level 20 L 24 24 22 Anion Gap 20 H 15 16 19 H Blood Urea Nitrogen 15 15 16 16 Creatinine 0.89 0.92 0.91 0.97 Glucose Level 82 79 102 114 Calcium Level 9.5 9.2 9.7 10.1 Magnesium Level 1.8 2.5 2.6 H Phosphorus Level 3.5 Total Bilirubin 0.4 Direct Bilirubin 0.00 Indirect Bilirubin 0.4 Aspartate Amino Transf (AST/SGOT) 55 H Alanine Aminotransferase (ALT/SGPT) 46 Alkaline Phosphatase 61 Troponin I 1.060 *H Total Protein 6.6 Albumin 3.9 Medications Medications Current Medications Clopidogrel Bisulfate (plaVIX) 75 mg DAILY PO Last administered on 10/21/16 09 :51; Admin Dose 75 MG; Start 10/20/16 at 09:00 Aspirin (Aspirin) 81 mg DAILY PO Last administered on 10/21/16 09:52; Admin Dose 81 MG; Start 10/20/16 at 09:00 Atorvastatin Calcium (Lipitor) 40 mg HS PO Last administered on 10/21/16 21:00 ; Admin Dose 40 MG; Start 10/19/16 at 21:00 Morphine Sulfate (morphine) 2 mg Q2H PRN IV FOR NON CARDIAC PAIN (4-10) Last administered on 10/21/16 09:51; Admin Dose 2 MG; Start 10/19/16 at 12:00 Acetaminophen (Tylenol Tab) 650 mg Q6H PRN PO PAIN AND OR ELEVATED TEMP; Start 10/20/16 at 08:00 Bisacodyl (Dulcolax) 10 mg DAILY PRN PO CONSTIPATION; Start 10/20/16 at 08:00 Divalproex Sodium (Depakote) 500 mg DAILY@19 PO ; Start 10/20/16 at 09:00 Famotidine (Pepcid) 20 mg BID PO Last administered on 10/21/16 21:01; Admin Dose 20 MG; Start 10/20/16 at 09:00 Lorazepam (Ativan) 0.25 mg TID PO Last administered on 10/21/16 21:00; Admin Dose 0.25 MG; Start 10/20/16 at 09:45 Memantine (Namenda) 5 mg BID PO Last administered on 10/21/16 21:00; Admin Dose 5 MG; Start 10/20/16 at 10:00 Docusate Sodium (Colace) 100 mg DAILY PO ; Start 10/20/16 at 09:30 Folic Acid (Folic Acid) 1 mg DAILY PO ; Start 10/21/16 at 09:30 Gabapentin (Neurontin) 300 mg TID PO Last administered on 10/21/16 21:01; Admin Dose 300 MG; Start 10/20/16 at 09:00 Al Hydrox/Mg Hydrox/Simethicone (Mag-Al Plus) 30 ml Q6 PO Last administered on 10/22/16 06:26; Admin Dose 30 ML; Start 10/20/16 at 12:00 Magnesium Hydroxide (Milk Of Mag) 30 ml HS PO Last administered on 10/21/16 21 :00; Admin Dose 30 ML; Start 10/20/16 at 21:00 Divalproex Sodium (Depakote) 250 mg BID@09,14 PO Last administered on 13:33; Admin Dose 250 MG; Start 10/20/16 at 10:30 Carbidopa/ Levodopa 1 tab 1 tab TID PO Last administered on 10/21/16 21:01; Admin Dose 1 TAB; Start 10/20/16 at 13:00 Dopamine HCl/ Dextrose 250 ml @ 5.28 mls/hr TITRATE IV Last administered on 05:09; Admin Dose 34.32 MLS/HR; Start 10/21/16 at 19:30 Isosorbide Mononitrate (Imdur) 30 mg DAILY PO ; Start 10/22/16 at 09:00; Status SUDARSHAN CAMP Oct 22, 2016 07:22
--- NOTE | 2016-10-22 08:07 | PN ---
Date/Time of Note Date/Time of Note DATE: 10/22/16 TIME: 08:02 Assessment/Plan VTE Prophylaxis VTE Prophylaxis Intervention: other Lines/Catheters IV Catheter Type (from Nrs): Peripheral IV Urinary Cath still in place: Yes Reason Cath still needed: other (indicate) Assessment/Plan Chief Complaint/Hosp Course Arrhythmia/torsades Etiology likely from psychotropic medications Patient placed on dopamine with improvement All psychotropic medications were discontinued We will monitor closely Transient ST elevation Etiology unclear questionable spasm versus thrombosis Serial troponins will be monitored Cardiology is aware appreciate their help Non-STEMI status post cardiac cath with PCI to the RCA Continue current medical management with aspirin Plavix metoprolol Patient is difficult as he has been noncompliant with certain medications Appreciate neurology's evaluation Follow-up cardiology with recommendations Hypertension Continue current medical management Dyslipidemia Continue statin therapy Parkinson's disease with dementia Appreciate neurology evaluation Patient will not tolerate MRI Continue medical management Dysphasia Continue aspiration precautions Nonoliguric acute kidney injury Etiology is likely hemodynamics Renal function is improved with IV hydration Continue to monitor Hypernatremia Patient is a free water deficit of 1 L Continue to encourage free water intake We will start D5 water Anemia Monitor H&H levels GI DVT prophylaxis Continue PPI and SCDs Bipolar disorder/psychosis Patient's pending telemetry psych evaluation Continue current medical management Psychotropic meds were discontinued due to arrhythmia Continue valproic acid Transaminitis Possibly medication related To monitor Problems: Subjective 24 Hr Interval Summary Free Text/Dictation Patient seen and examined Overnight patient noted to have QT prolongation and transient episodes of ST elevation Cardiology evaluated patient, psychotropic medications were discontinued Patient remains noncompliant with taking medications Able to take Plavix yesterday Telemetry psych evaluations pending Patient's is aware I spoke with her yesterday Exam/Review of Systems Vital Signs Vitals Vital Signs Date Time Temp Pulse Resp B/P Pulse Ox O2 Delivery O2 Flow Rate FiO2 10/22/16 06:15 96 11 95/53 95 10/22/16 05:00 2.0 10/22/16 04:00 98.2 10/21/16 18:00 Room Air Intake and Output 10/21/16 10/21/16 10/22/16 15:00 23:00 07:00 Intake Total 150 ml 265 ml 102 ml Output Total 577 ml 520 ml 295 ml Balance -427 ml -255 ml -193 ml Exam HEENT: Head is normocephalic, NECK: Supple. HEART: Irregular LUNGS: Show diminished breath sounds at base. ABDOMEN: Soft, nontender to palpation without rebound or guarding. EXTREMITIES: Negative for clubbing, cyanosis. DERMATOLOGIC: No rashes. MUSCULOSKELETAL: No joint effusions, NEUROLOGIC: No change in exam. Results Result Diagram: 10/22/16 0548 10/22/16 0548 Results 24 hrs Laboratory Tests Test 10/21/16 10:33 10/21/16 18:50 10/22/16 01:20 10/22/16 05:48 White Blood Count 8.0 10.9 #H Red Blood Count 3.41 L 4.42 #L Hemoglobin 9.3 L 12.3 #L Hematocrit 28.9 L 38.1 #L Mean Corpuscular Volume 84.8 86.2 Mean Corpuscular Hemoglobin 27.3 L 27.8 L Mean Corpuscular Hemoglobin Concent 32.2 32.3 Red Cell Distribution Width 15.6 H 15.8 H Platelet Count 237 352 # Mean Platelet Volume 11.5 H 11.2 H Neutrophils % 81.1 H 78.9 H Lymphocytes % 10.5 L 10.5 L Monocytes % 6.6 8.1 Eosinophils % 0.6 1.3 Basophils % 0.4 0.5 Nucleated Red Blood Cells % 0.0 0.0 Neutrophils # 6.5 8.6 H Lymphocytes # 0.8 1.2 Monocytes # 0.5 0.9 Eosinophils # 0.1 0.1 Basophils # 0.0 0.1 Nucleated Red Blood Cells # 0.0 0.0 Sodium Level 145 H 144 145 H 149 H Potassium Level 3.6 3.5 3.8 3.8 Chloride Level 109 109 109 112 H Carbon Dioxide Level 20 L 24 24 22 Anion Gap 20 H 15 16 19 H Blood Urea Nitrogen 15 15 16 16 Creatinine 0.89 0.92 0.91 0.97 Glucose Level 82 79 102 114 Calcium Level 9.5 9.2 9.7 10.1 Magnesium Level 1.8 2.5 2.6 H Phosphorus Level 3.5 Total Bilirubin 0.4 Direct Bilirubin 0.00 Indirect Bilirubin 0.4 Aspartate Amino Transf (AST/SGOT) 55 H Alanine Aminotransferase (ALT/SGPT) 46 Alkaline Phosphatase 61 Troponin I 1.060 *H Total Protein 6.6 Albumin 3.9 Medications Medications Current Medications Clopidogrel Bisulfate (plaVIX) 75 mg DAILY PO Last administered on 10/21/16 09 :51; Admin Dose 75 MG; Start 10/20/16 at 09:00 Aspirin (Aspirin) 81 mg DAILY PO Last administered on 10/21/16 09:52; Admin Dose 81 MG; Start 10/20/16 at 09:00 Atorvastatin Calcium (Lipitor) 40 mg HS PO Last administered on 10/21/16 21:00 ; Admin Dose 40 MG; Start 10/19/16 at 21:00 Morphine Sulfate (morphine) 2 mg Q2H PRN IV FOR NON CARDIAC PAIN (4-10) Last administered on 10/21/16 09:51; Admin Dose 2 MG; Start 10/19/16 at 12:00 Acetaminophen (Tylenol Tab) 650 mg Q6H PRN PO PAIN AND OR ELEVATED TEMP; Start 10/20/16 at 08:00 Bisacodyl (Dulcolax) 10 mg DAILY PRN PO CONSTIPATION; Start 10/20/16 at 08:00 Divalproex Sodium (Depakote) 500 mg DAILY@19 PO ; Start 10/20/16 at 09:00 Famotidine (Pepcid) 20 mg BID PO Last administered on 10/21/16 21:01; Admin Dose 20 MG; Start 10/20/16 at 09:00 Lorazepam (Ativan) 0.25 mg TID PO Last administered on 10/21/16 21:00; Admin Dose 0.25 MG; Start 10/20/16 at 09:45 Memantine (Namenda) 5 mg BID PO Last administered on 10/21/16 21:00; Admin Dose 5 MG; Start 10/20/16 at 10:00 Docusate Sodium (Colace) 100 mg DAILY PO ; Start 10/20/16 at 09:30 Folic Acid (Folic Acid) 1 mg DAILY PO ; Start 10/21/16 at 09:30 Gabapentin (Neurontin) 300 mg TID PO Last administered on 10/21/16 21:01; Admin Dose 300 MG; Start 10/20/16 at 09:00 Al Hydrox/Mg Hydrox/Simethicone (Mag-Al Plus) 30 ml Q6 PO Last administered on 10/22/16 06:26; Admin Dose 30 ML; Start 10/20/16 at 12:00 Magnesium Hydroxide (Milk Of Mag) 30 ml HS PO Last administered on 10/21/16 21 :00; Admin Dose 30 ML; Start 10/20/16 at 21:00 Divalproex Sodium (Depakote) 250 mg BID@09,14 PO Last administered on 13:33; Admin Dose 250 MG; Start 10/20/16 at 10:30 Carbidopa/ Levodopa 1 tab 1 tab TID PO Last administered on 10/21/16 21:01; Admin Dose 1 TAB; Start 10/20/16 at 13:00 Dopamine HCl/ Dextrose 250 ml @ 5.28 mls/hr TITRATE IV Last administered on 05:09; Admin Dose 34.32 MLS/HR; Start 10/21/16 at 19:30 Isosorbide Mononitrate (Imdur) 30 mg DAILY PO ; Start 10/22/16 at 09:00 KYLIE CONDON DO Oct 22, 2016 08:07
[2016-10-22] MEDS: FOLIC ACID 1 MG TAB PO SCH (08:37)
[2016-10-22] MEDS: CLOPIDOGREL 75 MG TAB PO SCH (08:37)
[2016-10-22] MEDS: ASPIRIN 81 MG TAB PO SCH (08:37)
[2016-10-22] MEDS: LORAZEPAM 0.5 MG TAB PO SCH ×3 (08:37→21:29)
[2016-10-22] MEDS: CARBIDOPA/LEVODOPA 25-100 (CR) TAB PO SCH ×3 (08:37→21:28)
[2016-10-22] MEDS: GABAPENTIN 300 MG CAP PO SCH ×3 (08:38→21:28)
[2016-10-22] MEDS: FAMOTIDINE 20 MG TAB PO SCH ×2 (08:38→21:28)
[2016-10-22] MEDS: ISOSORBIDE MONONITRATE(SR)30 MG TAB PO SCH (08:38)
[2016-10-22] MEDS: DOCUSATE SODIUM 100 MG CAP PO SCH (08:38)
[2016-10-22] MEDS: MEMANTINE 5 MG TAB PO SCH ×2 (08:38→21:28)
[2016-10-22] MEDS: DIVALPROEX (EC) 250 MG TAB PO SCH ×2 (09:00→13:27)
[2016-10-22] MEDS: DEXTROSE 5% 1,000 ML IV SCH (09:07)
[2016-10-22 09:25] LABS: CK-MB 7.48 ng/ml (0.0-2.4); TROPONIN-I 1.36 ng/ml (0.00-0.12)
--- NOTE | 2016-10-22 10:30 | RADRPT ---
Echocardiogram Report Patient Name: OBDULIA ZHOU Gender: Male Date: 1945 Study Date: 22-Oct-2016 Paper Tube Cutter: Ericka Rabago RDCS Location: [facility] Ref. Physician: SUDARSHAN GUERRERO Quality: Technically Difficult Study Procedures: Transthoracic echocardiogram with complete 2D, M-Mode, and doppler examination. Indications: transient ST elevation. 2D/M Mode Doppler Measurement Value Normal Ranges Measurement Value Normal Ranges LVIDd 2D 4.2 3.5 - 5.6 cm AV Peak Carter 1.6 m/sec LVIDs 2D 2.7 2.1 - 4.1 cm AV Peak PG 9.7 mmHg LVPWd 2D 1.2 0.6 - 1.1 cm AI Peak PG 21.3 mmHg IVSd 2D 1.2 0.6 - 1.1 cm AI Peak Carter 2.3 m/sec AoR Diam 2D 3.2 2.0 - 3.7 cm AI PHT 443.8 msec EDV 2D 77.5 cm3 LVOT Peak Carter 1.4 m/sec ESV 2D 20.5 cm3 LVOT Peak PG 7.5 mmHg LA Dimen 2D 2.6 2.3 - 4.0 cm MV E Peak Carter 0.4 m/sec MV A Peak Carter 0.7 m/sec MV E/A 0.6 MV Decel Time 171 msec MV Decel [place] 2 MV E/A 0.6 TR Peak Carter 1.8 m/sec TR Peak PG 13.5 mmHg RVSP 22.0 mmHg Findings Left Ventricle: Normal left ventricular cavity size. Normal left ventricular wall thickness. Mild left ventricular systolic dysfunction. Ejection fraction is visually estimated at 45 %. Tissue Doppler/Mitral Doppler indices are consistent with impaired relaxation (Stage I diastolic dysfunction). Resting Segmental Wall Motion Analysis: Akinesis of the distal septum, inferior wall and entire apex. Anterior wall has normal wall motion. Right Ventricle: Not well visualized. Left Atrium: There is mild enlargement of left atrium. Right Atrium: The right atrium is normal in size. Mitral Valve: Normal appearance and function of the mitral valve with trace physiologic regurgitation. Aortic Valve: No hemodynamically significant aortic stenosis by doppler. Aortic cusps appear mildly calcified. Mild to moderate aortic valve regurgitation. Tricuspid Valve: Normal appearance of the tricuspid valve. Estimated peak PA systolic pressure 22 mmHg. There is trace tricuspid regurgitation. Pulmonic Valve: Pulmonic valve not well visualized. Pericardium: Normal pericardium with no significant pericardial effusion. Aorta: Not well visualized. IVC: The IVC is not well visualized. Conclusions Technically very difficult study due to patient cooperation/positioning and poor acoustic windows. Normal left ventricular cavity size. Normal left ventricular wall thickness. Mild left ventricular systolic dysfunction. Ejection fraction is visually estimated at 45 %. Tissue Doppler/Mitral Doppler indices are consistent with impaired relaxation (Stage I diastolic dysfunction). Akinesis of the distal septum, inferior wall and entire apex. Anterior wall has normal wall motion. Mild to moderate aortic valve regurgitation. Estimated peak PA systolic pressure 22 mmHg plus RA pressure. Electronically Signed By: Sudarshan Guerrero 22-Oct-2016 10:29:12 -0700 Patient Name: OBDULIA ZHOU Study Date: 22-Oct-2016 [id number]
[2016-10-22] MEDS ORDERED: PHENTOLAMINE 5 MG INJ SC ONE (11:30)
[2016-10-22] MEDS ORDERED: LIDOCAINE 1% (MPF) 5 ML VIAL SC ONE (11:30)
[2016-10-22 13:46] LABS: MICROALBUMIN 2.7 mg/dL
[2016-10-22] MEDS: DIVALPROEX (EC) 500 MG TAB PO SCH (19:00)
[2016-10-22] MEDS: ATORVASTATIN 40 MG TAB PO SCH ×2 (21:00→21:28)
[2016-10-22] MEDS: MAGNESIUM HYDROXIDE 30ML CUP PO SCH (21:28)
[2016-10-23] VITALS (79 sets, daily range): BP systolic 86–161; BP diastolic 44–104; PULSE 52–106; RESP 8–17; Ht 175.3 cm; Wt 71.9 kg
[2016-10-23] MEDS: DOPamine-D5W 1.6 MG/ML 250 ML IV SCH ×2 (04:49→18:28)
[2016-10-23] MEDS: DEXTROSE 5% 1,000 ML IV SCH ×2 (04:50→18:30)
[2016-10-23] MEDS: AL HYDROX/MG HYDROX/SIMETH 30 ML CUP PO SCH ×4 (06:00→18:00)
[2016-10-23 06:51] LABS: BASOPHILS % 0.4 % (0.0-2.0); EOSINOPHILS # 0.2 10^3/ul (0.0-0.5); EOSINOPHILS % 2.5 % (0.0-7.0); HEMATOCRIT 31.3 % (42.0-52.0); LYMPHOCYTES # 0.9 10^3/ul (0.8-2.9); LYMPHOCYTES % 11.4 % (15.0-51.0); MEAN CORPUSCULAR HEMOGLOBIN 27.4 pg (29.0-33.0); MEAN CORPUSCULAR HGB CONC 31.9 g/dl (32.0-37.0); MEAN CORPUSCULAR VOLUME 85.8 fl (82.0-101.0); MEAN PLATELET VOLUME 11.3 fl (7.4-10.4); MONOCYTE # 0.6 10^3/ul (0.3-0.9); MONOCYTES % 7.4 % (0.0-11.0); NEUTROPHIL # 5.9 10^3/ul (1.6-7.5); NEUTROPHILS % 77.8 % (39.0-77.0); PLATELET COUNT 289 10^3/UL (140-415); RED BLOOD COUNT 3.65 10^6/ul (4.70-6.10); RED CELL DISTRIBUTION WIDTH 15.6 % (11.5-14.5); WHITE BLOOD COUNT 7.6 10^3/ul (4.8-10.8)
--- NOTE | 2016-10-23 07:51 | PN ---
Date/Time of Note Date/Time of Note DATE: 10/23/16 TIME: 07:49 Assessment/Plan VTE Prophylaxis VTE Prophylaxis Intervention: other Lines/Catheters IV Catheter Type (from Nrs): Peripheral IV Urinary Cath still in place: Yes Reason Cath still needed: other (indicate) Assessment/Plan Chief Complaint/Hosp Course Arrhythmia/torsades Etiology likely from psychotropic medications Patient placed on dopamine with improvement All psychotropic medications were discontinued We will monitor closely Transient ST elevation Etiology unclear questionable spasm versus thrombosis Serial troponins will be monitored Cardiology is aware follow-up recommendations Non-STEMI status post cardiac cath with PCI to the RCA Continue current medical management with aspirin Plavix metoprolol Patient is difficult as he has been noncompliant with certain medications Appreciate neurology's evaluation Follow-up cardiology with recommendations Hypertension Continue current medical management Dyslipidemia Continue statin therapy Parkinson's disease with dementia Appreciate neurology evaluation Patient will not tolerate MRI Continue medical management Dysphasia Continue aspiration precautions Nonoliguric acute kidney injury Etiology is likely hemodynamics Renal function is improved with IV hydration Continue to monitor Hypernatremia Patient is a free water deficit of 1 L Continue to encourage free water intake We will start D5 water Anemia Monitor H&H levels GI DVT prophylaxis Continue PPI and SCDs Bipolar disorder/psychosis Patient's pending telemetry psych evaluation Continue current medical management Psychotropic meds were discontinued due to arrhythmia Continue valproic acid Transaminitis Possibly medication related To monitor Problems: Subjective 24 Hr Interval Summary Free Text/Dictation Patient seen and examined Patient has been taking his medications Remains on dopamine drip No active chest pain Exam/Review of Systems Vital Signs Vitals Vital Signs Date Time Temp Pulse Resp B/P Pulse Ox O2 Delivery O2 Flow Rate FiO2 10/23/16 06:45 58 10 117/61 100 10/23/16 04:30 97.6 10/23/16 03:59 3.0 10/22/16 21:00 Nasal Cannula Intake and Output 10/22/16 10/22/16 10/23/16 15:00 23:00 07:00 Intake Total 290 ml 738.07 ml 682.63 ml Output Total 350 ml 575 ml 675 ml Balance -60 ml 163.07 ml 7.63 ml Exam HEENT: Head is normocephalic, NECK: Supple. HEART: Irregular LUNGS: Show diminished breath sounds at base. ABDOMEN: Soft, nontender to palpation without rebound or guarding. EXTREMITIES: Negative for clubbing, cyanosis. DERMATOLOGIC: No rashes. MUSCULOSKELETAL: No joint effusions, NEUROLOGIC: No change in exam. Results Result Diagram: 10/23/16 0543 10/22/16 0548 Results 24 hrs Laboratory Tests Test 10/22/16 08:37 10/22/16 13:55 10/23/16 01:10 10/23/16 05:43 Creatinine Kinase MB (Mass) 7.48 H Troponin I 1.360 *H 2.130 *H 1.860 *H 1.470 *H White Blood Count 7.6 # Red Blood Count 3.65 L Hemoglobin 10.0 L Hematocrit 31.3 L Mean Corpuscular Volume 85.8 Mean Corpuscular Hemoglobin 27.4 L Mean Corpuscular Hemoglobin Concent 31.9 L Red Cell Distribution Width 15.6 H Platelet Count 289 Mean Platelet Volume 11.3 H Neutrophils % 77.8 H Lymphocytes % 11.4 L Monocytes % 7.4 Eosinophils % 2.5 Basophils % 0.4 Nucleated Red Blood Cells % 0.0 Neutrophils # 5.9 Lymphocytes # 0.9 Monocytes # 0.6 Eosinophils # 0.2 Basophils # 0.0 Nucleated Red Blood Cells # 0.0 Medications Medications Current Medications Clopidogrel Bisulfate (plaVIX) 75 mg DAILY PO Last administered on 10/22/16 08 :37; Admin Dose 75 MG; Start 10/20/16 at 09:00 Aspirin (Aspirin) 81 mg DAILY PO Last administered on 10/22/16 08:37; Admin Dose 81 MG; Start 10/20/16 at 09:00 Atorvastatin Calcium (Lipitor) 40 mg HS PO Last administered on 10/22/16 21:00 ; Admin Dose 40 MG; Start 10/19/16 at 21:00 Morphine Sulfate (morphine) 2 mg Q2H PRN IV FOR NON CARDIAC PAIN (4-10) Last administered on 10/21/16 09:51; Admin Dose 2 MG; Start 10/19/16 at 12:00 Acetaminophen (Tylenol Tab) 650 mg Q6H PRN PO PAIN AND OR ELEVATED TEMP; Start 10/20/16 at 08:00 Bisacodyl (Dulcolax) 10 mg DAILY PRN PO CONSTIPATION; Start 10/20/16 at 08:00 Divalproex Sodium (Depakote) 500 mg DAILY@19 PO ; Start 10/20/16 at 09:00 Famotidine (Pepcid) 20 mg BID PO Last administered on 10/22/16 21:28; Admin Dose 20 MG; Start 10/20/16 at 09:00 Lorazepam (Ativan) 0.25 mg TID PO Last administered on 10/22/16 21:29; Admin Dose 0.25 MG; Start 10/20/16 at 09:45 Memantine (Namenda) 5 mg BID PO Last administered on 10/22/16 21:28; Admin Dose 5 MG; Start 10/20/16 at 10:00 Docusate Sodium (Colace) 100 mg DAILY PO Last administered on 10/22/16 08:38; Admin Dose 100 MG; Start 10/20/16 at 09:30 Folic Acid (Folic Acid) 1 mg DAILY PO Last administered on 10/22/16 08:37; Admin Dose 1 MG; Start 10/21/16 at 09:30 Gabapentin (Neurontin) 300 mg TID PO Last administered on 10/22/16 21:28; Admin Dose 300 MG; Start 10/20/16 at 09:00 Al Hydrox/Mg Hydrox/Simethicone (Mag-Al Plus) 30 ml Q6 PO Last administered on 10/22/16 13:17; Admin Dose 30 ML; Start 10/20/16 at 12:00 Magnesium Hydroxide (Milk Of Mag) 30 ml HS PO Last administered on 10/22/16 21 :28; Admin Dose 30 ML; Start 10/20/16 at 21:00 Divalproex Sodium (Depakote) 250 mg BID@09,14 PO Last administered on 13:27; Admin Dose 250 MG; Start 10/20/16 at 10:30 Carbidopa/ Levodopa 1 tab 1 tab TID PO Last administered on 10/22/16 21:28; Admin Dose 1 TAB; Start 10/20/16 at 13:00 Dopamine HCl/ Dextrose 250 ml @ 5.28 mls/hr TITRATE IV Last administered on 04:49; Admin Dose 13.2 MLS/HR; Start 10/21/16 at 19:30 Isosorbide Mononitrate 30 mg 30 mg DAILY PO Last administered on 10/22/16 08: 38; Admin Dose 30 MG; Start 10/22/16 at 09:00 Dextrose (D5W) 1,000 ml @ 50 mls/hr Q20H IV Last administered on 10/23/16t 04: 50; Admin Dose 50 MLS/HR; Start 10/22/16 at 08:00 Lidocaine (Xylocaine 1% (Mpf)) 5 ml ONCE ONCE SC ; Start 10/23/16 at 08:00; Stop 10/23/16 at 08:01 KYLIE CONDON DO Oct 23, 2016 07:51
[2016-10-23 07:52] LABS: CALCIUM 9.2 mg/dl (8.4-10.2); CREATININE 0.82 mg/dl (0.61-1.24); MAGNESIUM 1.9 mg/dl (1.7-2.5); PHOSPHORUS 3.3 mg/dl (2.5-4.9); POTASSIUM 3.8 mmol/L (3.5-5.1)
[2016-10-23] MEDS ORDERED: LIDOCAINE 1% (MPF) 5 ML VIAL SC ONE (08:00)
[2016-10-23] MEDS ORDERED: MAGNESIUM SULFATE 2 GM/50 ML 50 ML IVPB ONE (09:00)
[2016-10-23] MEDS ORDERED: POTASSIUM CHLORIDE 20 MEQ POWDER FOR ORAL SOLN PO ONE (09:00)
--- NOTE | 2016-10-23 09:00 | CONS ---
Date/Time of Note Date/Time of Note DATE: 10/23/16 TIME: 08:55 Assessment/Plan Assessment/Plan Chief Complaint/Hosp Course Transient anterior ST elevation: occurred during initial hospitalization and then resolved spontaneously. Cath did not show an LAD lesion. LV gram without anterior wall motion abnormalities. The pt had recurrence in the setting of tachycardia (130s) and dopamine. Seemed to resolve after NTG and HR improvement from decreasing dopamine so unclear which was useful but coronary vasospasm is a possibility. Mild trop bump to 2 but now back down. Torsades/PMVT: bradycardia driven in setting of QTC ~600 due to psych meds. No recurrence so far on dopamine and holding psych meds Prolonged QTc: due to psych meds NSTEMI: Trop peaked at 120. Transient anterior ST elevation?. Echo with EF 50% and possible LAD territory hypokinesis but no akinesis. Cath showed no LAD lesion but a proximal RCA lesion and inferior wall motion abnormalities. A drug eluting stent was placed due to in-stent restenosis. Pt was agreeable to taking meds prior to cardiac cath, then refused. Now was convinced to take it. Compliance remains an issue skilled nursing. Cardiomyopathy: EF ~45% here but poor study. Likely ischemic but may have a component of takotsubo based on EKG and wall motion changes. Parkinson's with dementia: refusing to take meds at times HTN HL -continue dopamine with goal HR >70 -check EKG. If QTc <500 can d/c dopamine -ASA, plavix (most crucial to give to pt and seems to take it when crushed with orange juice) -imdur 30mg daily -lipitor -hold metoprolol Problems: Consultation Date/Type/Reason Admit Date/Time Oct 19, 2016 at 08:26 Type of Consultation: Cardiology 24 HR Interval Summary Free Text/Dictation No torsades overnight. Remains on dopamine. Trop slightly bumped to 2 and back down. No chest pain. Eating well and taking his meds now. Exam/Review of Systems Vital Signs Vitals Vital Signs Date Time Temp Pulse Resp B/P Pulse Ox O2 Delivery O2 Flow Rate FiO2 10/23/16 08:30 59 13 141/71 100 10/23/16 08:00 98.1 Nasal Cannula 2.0 Intake and Output 10/22/16 10/22/16 10/23/16 15:00 23:00 07:00 Intake Total 290 ml 738.07 ml 682.63 ml Output Total 350 ml 575 ml 875 ml Balance -60 ml 163.07 ml -192.37 ml Exam Constitutional: alert, oriented Psych: no complaints Head: atraumatic, normocephalic Neck: No jvd Respiratory: clear to auscultation, No crackles/rales Cardiovascular: regular rate and rhythm, No edema Gastrointestinal: soft, No non-tender Neurological: nl mental status, nl speech Results Result Diagram: 10/23/1643 10/23/16 0543 Results 24 hrs Laboratory Tests Test 10/22/16 13:55 10/23/16 01:10 10/23/16 05:43 Troponin I 2.130 *H 1.860 *H 1.470 *H White Blood Count 7.6 # Red Blood Count 3.65 L Hemoglobin 10.0 L Hematocrit 31.3 L Mean Corpuscular Volume 85.8 Mean Corpuscular Hemoglobin 27.4 L Mean Corpuscular Hemoglobin Concent 31.9 L Red Cell Distribution Width 15.6 H Platelet Count 289 Mean Platelet Volume 11.3 H Neutrophils % 77.8 H Lymphocytes % 11.4 L Monocytes % 7.4 Eosinophils % 2.5 Basophils % 0.4 Nucleated Red Blood Cells % 0.0 Neutrophils # 5.9 Lymphocytes # 0.9 Monocytes # 0.6 Eosinophils # 0.2 Basophils # 0.0 Nucleated Red Blood Cells # 0.0 Sodium Level 145 H Potassium Level 3.8 Chloride Level Pending Carbon Dioxide Level 24 Anion Gap Pending Blood Urea Nitrogen 14 Creatinine 0.82 Glucose Level 122 Calcium Level 9.2 Phosphorus Level 3.3 Magnesium Level 1.9 Medications Medications Current Medications Clopidogrel Bisulfate (plaVIX) 75 mg DAILY PO Last administered on 10/22/16 08 :37; Admin Dose 75 MG; Start 10/20/16 at 09:00 Aspirin (Aspirin) 81 mg DAILY PO Last administered on 10/22/16 08:37; Admin Dose 81 MG; Start 10/20/16 at 09:00 Atorvastatin Calcium (Lipitor) 40 mg HS PO Last administered on 10/22/16 21:00 ; Admin Dose 40 MG; Start 10/19/16 at 21:00 Morphine Sulfate (morphine) 2 mg Q2H PRN IV FOR NON CARDIAC PAIN (4-10) Last administered on 10/21/16 09:51; Admin Dose 2 MG; Start 10/19/16 at 12:00 Acetaminophen (Tylenol Tab) 650 mg Q6H PRN PO PAIN AND OR ELEVATED TEMP; Start 10/20/16 at 08:00 Bisacodyl (Dulcolax) 10 mg DAILY PRN PO CONSTIPATION; Start 10/20/16 at 08:00 Divalproex Sodium (Depakote) 500 mg DAILY@19 PO ; Start 10/20/16 at 09:00 Famotidine (Pepcid) 20 mg BID PO Last administered on 10/22/16 21:28; Admin Dose 20 MG; Start 10/20/16 at 09:00 Lorazepam (Ativan) 0.25 mg TID PO Last administered on 10/22/16 21:29; Admin Dose 0.25 MG; Start 10/20/16 at 09:45 Memantine (Namenda) 5 mg BID PO Last administered on 10/22/16 21:28; Admin Dose 5 MG; Start 10/20/16 at 10:00 Docusate Sodium (Colace) 100 mg DAILY PO Last administered on 10/22/16 08:38; Admin Dose 100 MG; Start 10/20/16 at 09:30 Folic Acid (Folic Acid) 1 mg DAILY PO Last administered on 10/22/16 08:37; Admin Dose 1 MG; Start 10/21/16 at 09:30 Gabapentin (Neurontin) 300 mg TID PO Last administered on 10/22/16 21:28; Admin Dose 300 MG; Start 10/20/16 at 09:00 Al Hydrox/Mg Hydrox/Simethicone (Mag-Al Plus) 30 ml Q6 PO Last administered on 10/22/16 13:17; Admin Dose 30 ML; Start 10/20/16 at 12:00 Magnesium Hydroxide (Milk Of Mag) 30 ml HS PO Last administered on 10/22/16 21 :28; Admin Dose 30 ML; Start 10/20/16 at 21:00 Divalproex Sodium (Depakote) 250 mg BID@09,14 PO Last administered on 13:27; Admin Dose 250 MG; Start 10/20/16 at 10:30 Carbidopa/ Levodopa 1 tab 1 tab TID PO Last administered on 10/22/16 21:28; Admin Dose 1 TAB; Start 10/20/16 at 13:00 Dopamine HCl/ Dextrose 250 ml @ 5.28 mls/hr TITRATE IV Last administered on 04:49; Admin Dose 13.2 MLS/HR; Start 10/21/16 at 19:30 Isosorbide Mononitrate 30 mg 30 mg DAILY PO Last administered on 10/22/16 08: 38; Admin Dose 30 MG; Start 10/22/16 at 09:00 Dextrose (D5W) 1,000 ml @ 50 mls/hr Q20H IV Last administered on 10/23/16 04: 50; Admin Dose 50 MLS/HR; Start 10/22/16 at 08:00 SUDARSHAN WAITE Oct 23, 2016 08:59
[2016-10-23] MEDS: MEMANTINE 5 MG TAB PO SCH ×2 (09:22→21:00)
[2016-10-23] MEDS: GABAPENTIN 300 MG CAP PO SCH ×3 (09:22→21:00)
[2016-10-23] MEDS: ISOSORBIDE MONONITRATE(SR)30 MG TAB PO SCH (09:22)
[2016-10-23] MEDS: DOCUSATE SODIUM 100 MG CAP PO SCH (09:22)
[2016-10-23] MEDS: CARBIDOPA/LEVODOPA 25-100 (CR) TAB PO SCH ×3 (09:23→21:00)
[2016-10-23] MEDS: LORAZEPAM 0.5 MG TAB PO SCH ×3 (09:23→21:00)
[2016-10-23] MEDS: ASPIRIN 81 MG TAB PO SCH (09:23)
[2016-10-23] MEDS: FOLIC ACID 1 MG TAB PO SCH (09:23)
[2016-10-23] MEDS: FAMOTIDINE 20 MG TAB PO SCH ×2 (09:23→21:00)
[2016-10-23] MEDS: CLOPIDOGREL 75 MG TAB PO SCH (09:23)
[2016-10-23] MEDS: DIVALPROEX (EC) 250 MG TAB PO SCH ×2 (09:30→14:16)
--- NOTE | 2016-10-23 16:52 | RADRPT ---
PROCEDURE: XR Chest. CLINICAL INDICATION: Check PICC line position. TECHNIQUE: Single frontal view. COMPARISON: No prior study is available for comparison. FINDINGS: There is a right arm PICC line with the tip in the lower superior vena cava. There is mild left bas ilar atelectasis. The lungs are otherwise clear. The heart size is normal. There is no pleural effusion. There is no pneumothorax. IMPRESSION: 1. Left arm PICC line tip in satisfactory position. 2. Mild right basilar atelectasis. 3. Otherwise normal chest x-ray. RPTAT: QQ .Derrick Ren MD, Date Time Electronically viewed and signed by .Derrick Ren MD, on 10/23/2016 16:52 .R/
[2016-10-23] MEDS ORDERED: SOD CHLORIDE 0.9% 100 ML ONE (17:46)
--- NOTE | 2016-10-23 18:03 | RADRPT ---
PROCEDURE: Ultrasound guidance for placement of needle in right upper extremity vein. CLINICAL INDICATION: Venous access. TECHNIQUE: Limited sonography of the right upper extremity was performed. Ultrasound images were recorded and stored in the patient's medical record. COMPARISON: None. FINDINGS: The ultrasound images demonstrate a patent right upper extremity vein. The PICC line was inserted b y the PICC line nurse. IMPRESSION: 1. Ultrasound guidance for a needle placement in a right upper extremity vein. 2. The visualized right upper extremity vein is patent. RPTAT: QQ .Derrick Ren MD, MD Date Time Electronically viewed and signed by .Derrick Ren MD, MD on 10/23/2016 18:03 .R/
[2016-10-23] MEDS: DIVALPROEX (EC) 500 MG TAB PO SCH (18:22)
--- NOTE | 2016-10-23 18:57 | RADRPT ---
Vent Rate: 0 bpm RR Interval: 0 msec MN Interval: 0 msec QRS Duration: 0 msec QT Interval: 0 msec QTC Interval: 0 msec P-R-T [place]: 0 - 0 - 0 degrees Electronically Signed By: Fox Parsons [id number]
--- NOTE | 2016-10-23 18:58 | RADRPT ---
Vent Rate: 97 bpm RR Interval: 0 msec ND Interval: 138 msec QRS Duration: 86 msec QT Interval: 462 msec QTC Interval: 586 msec P-R-T [place]: 58 - -24 - 176 degrees Sinus rhythm with occasional premature ventricular complexes ST amp; Marked T wave abnormality, consider anterolateral ischemia Prolonged QT Abnormal ECG Electronically Signed By: Fox Parsons [id number]
--- NOTE | 2016-10-23 19:06 | RADRPT ---
Vent Rate: 62 bpm RR Interval: 0 msec MN Interval: 144 msec QRS Duration: 88 msec QT Interval: 528 msec QTC Interval: 535 msec P-R-T [place]: 62 - -2 - -88 degrees Sinus rhythm with occasional premature ventricular complexes Septal infarct , age undetermined ST amp; T wave abnormality, consider inferolateral ischemia Prolonged QT Abnormal ECG Electronically Signed By: Fox Parsons [id number]
[2016-10-23] MEDS: MAGNESIUM HYDROXIDE 30ML CUP PO SCH (21:00)
[2016-10-23] MEDS: ATORVASTATIN 40 MG TAB PO SCH (21:52)
[2016-10-24] VITALS (48 sets, daily range): BP systolic 81–147; BP diastolic 48–80; PULSE 54–93; RESP 10–16
[2016-10-24] MEDS: AL HYDROX/MG HYDROX/SIMETH 30 ML CUP PO SCH ×5 (01:07→23:59)
[2016-10-24 05:15] LABS: BASOPHILS % 0.2 % (0.0-2.0); EOSINOPHILS # 0.3 10^3/ul (0.0-0.5); EOSINOPHILS % 2.2 % (0.0-7.0); HEMATOCRIT 31.8 % (42.0-52.0); HEMOGLOBIN 10.2 g/dl (14.0-18.0); LYMPHOCYTES # 0.7 10^3/ul (0.8-2.9); LYMPHOCYTES % 5.2 % (15.0-51.0); MEAN CORPUSCULAR HEMOGLOBIN 27.7 pg (29.0-33.0); MEAN CORPUSCULAR HGB CONC 32.1 g/dl (32.0-37.0); MEAN CORPUSCULAR VOLUME 86.4 fl (82.0-101.0); MONOCYTE # 0.4 10^3/ul (0.3-0.9); MONOCYTES % 3.1 % (0.0-11.0); NEUTROPHIL # 11.7 10^3/ul (1.6-7.5); NEUTROPHILS % 88.9 % (39.0-77.0); PLATELET COUNT 315 10^3/UL (140-415); RED BLOOD COUNT 3.68 10^6/ul (4.70-6.10); RED CELL DISTRIBUTION WIDTH 15.8 % (11.5-14.5); WHITE BLOOD COUNT 13.2 10^3/ul (4.8-10.8)
[2016-10-24 05:42] LABS: CREATININE 0.88 mg/dl (0.61-1.24); POTASSIUM 4.3 mmol/L (3.5-5.1)
--- NOTE | 2016-10-24 07:08 | PN ---
Date/Time of Note Date/Time of Note DATE: 10/24/16 TIME: 07:06 Assessment/Plan VTE Prophylaxis VTE Prophylaxis Intervention: other Lines/Catheters IV Catheter Type (from Nrs): PICC Line Central line still needed: Yes Urinary Cath still in place: Yes Reason Cath still needed: other (indicate) Assessment/Plan Chief Complaint/Hosp Course Arrhythmia/torsades Etiology likely from psychotropic medications Patient placed on dopamine with improvement All psychotropic medications were discontinued We will monitor closely Transient ST elevation Etiology unclear questionable spasm Serial troponins will be monitored Cardiology is aware follow-up recommendations Non-STEMI status post cardiac cath with PCI to the RCA Continue current medical management with aspirin Plavix metoprolol Patient is difficult as he has been noncompliant with certain medications Appreciate neurology's evaluation Follow-up cardiology with recommendations Hypertension Continue current medical management Dyslipidemia Continue statin therapy Parkinson's disease with dementia Appreciate neurology evaluation Patient will not tolerate MRI Continue medical management Dysphasia Continue aspiration precautions Nonoliguric acute kidney injury Etiology is likely hemodynamics Renal function is improved with IV hydration Continue to monitor Hypernatremia Patient is a free water deficit of 1 L Continue to encourage free water intake We will start D5 water Anemia Monitor H&H levels GI DVT prophylaxis Continue PPI and SCDs Bipolar disorder/psychosis Patient's pending telemetry psych evaluation Continue current medical management Psychotropic meds were discontinued due to arrhythmia Continue valproic acid Transaminitis Possibly medication related To monitor Mild leukocytosis Monitor closely No obvious no obvious signs of sepsis at this time Problems: Subjective 24 Hr Interval Summary Free Text/Dictation Patient remains on dopamine drip Was noncompliant with all medications yesterday Urinary output has been adequate No other events noted Exam/Review of Systems Vital Signs Vitals Vital Signs Date Time Temp Pulse Resp B/P Pulse Ox O2 Delivery O2 Flow Rate FiO2 10/24/16 06:30 63 12 133/65 94 10/24/16 06:00 Nasal Cannula 2.0 10/24/16 00:00 98.6 Intake and Output 10/23/16 10/23/16 10/24/16 15:00 23:00 07:00 Intake Total 1321.44 ml 592.56 ml 509.12 ml Output Total 880 ml 780 ml 930 ml Balance 441.44 ml -187.44 ml -420.88 ml Exam HEENT: Head is normocephalic, NECK: Supple. HEART: Irregular LUNGS: Show diminished breath sounds at base. ABDOMEN: Soft, nontender to palpation without rebound or guarding. EXTREMITIES: Negative for clubbing, cyanosis. DERMATOLOGIC: No rashes. MUSCULOSKELETAL: No joint effusions, NEUROLOGIC: No change in exam. Results Result Diagram: 10/24/16 0440 10/24/16 0440 Results 24 hrs Laboratory Tests Test 10/24/16 04:40 White Blood Count 13.2 #H Red Blood Count 3.68 L Hemoglobin 10.2 L Hematocrit 31.8 L Mean Corpuscular Volume 86.4 Mean Corpuscular Hemoglobin 27.7 L Mean Corpuscular Hemoglobin Concent 32.1 Red Cell Distribution Width 15.8 H Platelet Count 315 Mean Platelet Volume 11.0 H Neutrophils % 88.9 H Lymphocytes % 5.2 L Monocytes % 3.1 Eosinophils % 2.2 Basophils % 0.2 Nucleated Red Blood Cells % 0.0 Neutrophils # 11.7 H Lymphocytes # 0.7 L Monocytes # 0.4 Eosinophils # 0.3 Basophils # 0.0 Nucleated Red Blood Cells # 0.0 Sodium Level 145 H Potassium Level 4.3 Chloride Level 109 Carbon Dioxide Level 28 Anion Gap 12 Blood Urea Nitrogen 11 Creatinine 0.88 Glucose Level 122 Calcium Level 9.0 Phosphorus Level 3.0 Magnesium Level 2.0 Medications Medications Current Medications Clopidogrel Bisulfate (plaVIX) 75 mg DAILY PO Last administered on 10/23/16 09 :23; Admin Dose 75 MG; Start 10/20/16 at 09:00 Aspirin (Aspirin) 81 mg DAILY PO Last administered on 10/23/16 09:23; Admin Dose 81 MG; Start 10/20/16 at 09:00 Atorvastatin Calcium (Lipitor) 40 mg HS PO Last administered on 10/22/16 21:00 ; Admin Dose 40 MG; Start 10/19/16 at 21:00 Morphine Sulfate (morphine) 2 mg Q2H PRN IV FOR NON CARDIAC PAIN (4-10) Last administered on 10/21/16 09:51; Admin Dose 2 MG; Start 10/19/16 at 12:00 Acetaminophen (Tylenol Tab) 650 mg Q6H PRN PO PAIN AND OR ELEVATED TEMP; Start 10/20/16 at 08:00 Bisacodyl (Dulcolax) 10 mg DAILY PRN PO CONSTIPATION; Start 10/20/16 at 08:00 Divalproex Sodium (Depakote) 500 mg DAILY@19 PO Last administered on 10/23/16 18:22; Admin Dose 500 MG; Start 10/20/16 at 09:00 Famotidine (Pepcid) 20 mg BID PO Last administered on 10/23/16 09:23; Admin Dose 20 MG; Start 10/20/16 at 09:00 Lorazepam (Ativan) 0.25 mg TID PO Last administered on 10/23/16 13:29; Admin Dose 0.25 MG; Start 10/20/16 at 09:45 Memantine (Namenda) 5 mg BID PO Last administered on 10/23/16 09:22; Admin Dose 5 MG; Start 10/20/16 at 10:00 Docusate Sodium (Colace) 100 mg DAILY PO Last administered on 10/23/16 09:22; Admin Dose 100 MG; Start 10/20/16 at 09:30 Folic Acid (Folic Acid) 1 mg DAILY PO Last administered on 10/23/16 09:23; Admin Dose 1 MG; Start 10/21/16 at 09:30 Gabapentin (Neurontin) 300 mg TID PO Last administered on 10/23/16 13:29; Admin Dose 300 MG; Start 10/20/16 at 09:00 Al Hydrox/Mg Hydrox/Simethicone (Mag-Al Plus) 30 ml Q6 PO Last administered on 10/24/16 05:43; Admin Dose 30 ML; Start 10/20/16 at 12:00 Magnesium Hydroxide (Milk Of Mag) 30 ml HS PO Last administered on 10/22/16 21 :28; Admin Dose 30 ML; Start 10/20/16 at 21:00 Divalproex Sodium (Depakote) 250 mg BID@09,14 PO Last administered on 14:16; Admin Dose 250 MG; Start 10/20/16 at 10:30 Carbidopa/ Levodopa 1 tab 1 tab TID PO Last administered on 10/23/16 13:29; Admin Dose 1 TAB; Start 10/20/16 at 13:00 Dopamine HCl/ Dextrose 250 ml @ 5.28 mls/hr TITRATE IV Last administered on 18:28; Admin Dose 18.48 MLS/HR; Start 7/26/17 at 19:30 Isosorbide Mononitrate 30 mg 30 mg DAILY PO Last administered on 10/23/16 09: 22; Admin Dose 30 MG; Start 10/22/16 at 09:00 Dextrose (D5W) 1,000 ml @ 50 mls/hr Q20H IV Last administered on 10/23/16 18: 30; Admin Dose 50 MLS/HR; Start 10/22/16 at 08:00 IV Flush (NS 10 ml) 10 ml PRN PRN IV IV PROTOCOL; Start 10/23/16 at 18:00 KYLIE CONDON DO Oct 24, 2016 07:08
[2016-10-24] MEDS: MEMANTINE 5 MG TAB PO SCH ×2 (08:57→21:24)
[2016-10-24] MEDS: DIVALPROEX (EC) 250 MG TAB PO SCH ×2 (08:57→13:31)
[2016-10-24] MEDS: GABAPENTIN 300 MG CAP PO SCH ×3 (08:57→21:24)
[2016-10-24] MEDS: LORAZEPAM 0.5 MG TAB PO SCH ×3 (08:57→21:24)
[2016-10-24] MEDS: ASPIRIN 81 MG TAB PO SCH (08:57)
[2016-10-24] MEDS: CARBIDOPA/LEVODOPA 25-100 (CR) TAB PO SCH ×4 (08:57→21:24)
[2016-10-24] MEDS: CLOPIDOGREL 75 MG TAB PO SCH (08:58)
[2016-10-24] MEDS: FOLIC ACID 1 MG TAB PO SCH ×2 (08:59→09:00)
[2016-10-24] MEDS: FAMOTIDINE 20 MG TAB PO SCH ×3 (08:59→21:24)
[2016-10-24] MEDS: DOCUSATE SODIUM 100 MG CAP PO SCH ×2 (08:59→09:00)
[2016-10-24] MEDS: ISOSORBIDE MONONITRATE(SR)30 MG TAB PO SCH ×2 (08:59→09:00)
[2016-10-24] MEDS: DOPamine-D5W 1.6 MG/ML 250 ML IV SCH (10:24)
--- NOTE | 2016-10-24 10:58 | PN ---
Date/Time of Note Date/Time of Note DATE: 10/24/16 TIME: 10:56 Assessment/Plan VTE Prophylaxis VTE Prophylaxis Intervention: other (asa/plavix) Lines/Catheters IV Catheter Type (from Nrs): PICC Line Central line still needed: Yes Urinary Cath still in place: Yes Reason Cath still needed: other (indicate) Assessment/Plan Assessment/Plan Transient anterior ST elevation: occurred during initial hospitalization and then resolved spontaneously. Cath did not show an LAD lesion. LV gram without anterior wall motion abnormalities. The pt had recurrence in the setting of tachycardia (130s) and dopamine. Seemed to resolve after NTG and HR improvement from decreasing dopamine so unclear which was useful but coronary vasospasm is a possibility. Mild trop bump to 2 but now back down. Torsades/PMVT: bradycardia driven in setting of QTC ~600 due to psych meds. No recurrence so far on dopamine and holding psych meds Prolonged QTc: due to psych meds NSTEMI: Trop peaked at 120. Transient anterior ST elevation?. Echo with EF 50% and possible LAD territory hypokinesis but no akinesis. Cath showed no LAD lesion but a proximal RCA lesion and inferior wall motion abnormalities. A drug eluting stent was placed due to in-stent restenosis. Pt was agreeable to taking meds prior to cardiac cath, then refused. Now was convinced to take it. Compliance remains an issue watermelon inspector. Cardiomyopathy: EF ~45% here but poor study. Likely ischemic but may have a component of takotsubo based on EKG and wall motion changes. 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 If QTc <500 can d/c dopamine (QTC 535 ms yest am) -ASA 81 mg daily, Plavix 75 mg daily(most crucial to give to pt and seems to take it when crushed with orange juice) -Imdur 30mg daily -Lipitor 40 mg qhs -holding metoprolol Subjective 24 Hr Interval Summary Free Text/Dictation No major events overnight. No torsades or VT. Was compliant with ASA/Plavix today. Remains on low-dose dopamine gtt. Exam/Review of Systems Vital Signs Vitals Vital Signs Date Time Temp Pulse Resp B/P Pulse Ox O2 Delivery O2 Flow Rate FiO2 10/24/16 08:00 65 10/24/16 06:30 12 133/65 94 10/24/16 06:00 Nasal Cannula 2.0 10/24/16 00:00 98.6 Intake and Output 10/23/16 10/23/16 10/24/16 15:00 23:00 07:00 Intake Total 1321.44 ml 592.56 ml 509.12 ml Output Total 880 ml 780 ml 930 ml Balance 441.44 ml -187.44 ml -420.88 ml Exam Constitutional: other (resting comfortably, when awoken appeared agitated) Head: normocephalic Neck: non-tender, supple, No jvd Respiratory: clear to auscultation, normal air movement, No crackles/rales, No wheezing Cardiovascular: nl pulses, regular rate and rhythm, No S3, No S4, No edema, No systolic murmur Gastrointestinal: nl liver, spleen, non-tender, soft Extremities: normal pulses, No calf tenderness, No clubbing, No cyanosis, No edema Results Result Diagram: 10/24/1643910/24/16439 Results 24 hrs Laboratory Tests Test 10/24/16 04:40 White Blood Count 13.2 #H Red Blood Count 3.68 L Hemoglobin 10.2 L Hematocrit 31.8 L Mean Corpuscular Volume 86.4 Mean Corpuscular Hemoglobin 27.7 L Mean Corpuscular Hemoglobin Concent 32.1 Red Cell Distribution Width 15.8 H Platelet Count 315 Mean Platelet Volume 11.0 H Neutrophils % 88.9 H Lymphocytes % 5.2 L Monocytes % 3.1 Eosinophils % 2.2 Basophils % 0.2 Nucleated Red Blood Cells % 0.0 Neutrophils # 11.7 H Lymphocytes # 0.7 L Monocytes # 0.4 Eosinophils # 0.3 Basophils # 0.0 Nucleated Red Blood Cells # 0.0 Sodium Level 145 H Potassium Level 4.3 Chloride Level 109 Carbon Dioxide Level 28 Anion Gap 12 Blood Urea Nitrogen 11 Creatinine 0.88 Glucose Level 122 Calcium Level 9.0 Phosphorus Level 3.0 Magnesium Level 2.0 Medications Medications Current Medications Clopidogrel Bisulfate (plaVIX) 75 mg DAILY PO Last administered on 10/24/16 08 :58; Admin Dose 75 MG; Start 10/20/16 at 09:00 Aspirin (Aspirin) 81 mg DAILY PO Last administered on 10/24/16 08:57; Admin Dose 81 MG; Start 10/20/16 at 09:00 Atorvastatin Calcium (Lipitor) 40 mg HS PO Last administered on 10/22/16 21:00 ; Admin Dose 40 MG; Start 10/19/16 at 21:00 Morphine Sulfate (morphine) 2 mg Q2H PRN IV FOR NON CARDIAC PAIN (4-10) Last administered on 10/21/16 09:51; Admin Dose 2 MG; Start 10/19/16 at 12:00 Acetaminophen (Tylenol Tab) 650 mg Q6H PRN PO PAIN AND OR ELEVATED TEMP; Start 10/20/16 at 08:00 Bisacodyl (Dulcolax) 10 mg DAILY PRN PO CONSTIPATION; Start 10/20/16 at 08:00 Divalproex Sodium (Depakote) 500 mg DAILY@19 PO Last administered on 10/23/16 18:22; Admin Dose 500 MG; Start 10/20/16 at 09:00 Famotidine (Pepcid) 20 mg BID PO Last administered on 10/23/16 09:23; Admin Dose 20 MG; Start 10/20/16 at 09:00 Lorazepam (Ativan) 0.25 mg TID PO Last administered on 10/24/16 08:57; Admin Dose 0.25 MG; Start 10/20/16 at 09:45 Memantine (Namenda) 5 mg BID PO Last administered on 10/24/16 08:57; Admin Dose 5 MG; Start 10/20/16 at 10:00 Docusate Sodium (Colace) 100 mg DAILY PO Last administered on 10/23/16 09:22; Admin Dose 100 MG; Start 10/20/16 at 09:30 Folic Acid (Folic Acid) 1 mg DAILY PO Last administered on 10/23/16 09:23; Admin Dose 1 MG; Start 10/21/16 at 09:30 Gabapentin (Neurontin) 300 mg TID PO Last administered on 10/24/16 08:57; Admin Dose 300 MG; Start 10/20/16 at 09:00 Al Hydrox/Mg Hydrox/Simethicone (Mag-Al Plus) 30 ml Q6 PO Last administered on 10/24/16 05:43; Admin Dose 30 ML; Start 10/20/16 at 12:00 Magnesium Hydroxide (Milk Of Mag) 30 ml HS PO Last administered on 10/22/16 21 :28; Admin Dose 30 ML; Start 10/20/16 at 21:00 Divalproex Sodium (Depakote) 250 mg BID@09,14 PO Last administered on 08:57; Admin Dose 250 MG; Start 10/20/16 at 10:30 Carbidopa/ Levodopa 1 tab 1 tab TID PO Last administered on 10/24/16 09:33; Admin Dose 1 TAB; Start 10/20/16 at 13:00 Dopamine HCl/ Dextrose 250 ml @ 5.28 mls/hr TITRATE IV Last administered on 10:24; Admin Dose 15.84 MLS/HR; Start 10/21/16 at 19:30 Isosorbide Mononitrate 30 mg 30 mg DAILY PO Last administered on 10/23/16 09: 22; Admin Dose 30 MG; Start 10/22/16 at 09:00 Dextrose (D5W) 1,000 ml @ 50 mls/hr Q20H IV Last administered on 10/23/16 18: 30; Admin Dose 50 MLS/HR; Start 10/22/16 at 08:00 IV Flush (NS 10 ml) 10 ml PRN PRN IV IV PROTOCOL; Start 10/23/16 at 18:00 KAMERON SHAIKH MD Oct 24, 2016 10:58
[2016-10-24] MEDS ORDERED: MAGNESIUM SULFATE 2 GM/50 ML 50 ML IVPB ONE (11:30)
[2016-10-24] MEDS: DEXTROSE 5% 1,000 ML IV SCH (16:00)
[2016-10-24] MEDS: DIVALPROEX (EC) 500 MG TAB PO SCH (20:17)
[2016-10-24] MEDS: MAGNESIUM HYDROXIDE 30ML CUP PO SCH (21:23)
[2016-10-24] MEDS: ATORVASTATIN 40 MG TAB PO SCH (21:24)
[2016-10-25] VITALS (80 sets, daily range): BP systolic 78–143; BP diastolic 49–84; PULSE 62–115; RESP 7–18
[2016-10-25] MEDS: DOPamine-D5W 1.6 MG/ML 250 ML IV SCH ×2 (01:32→20:39)
[2016-10-25 05:00] LABS: BASOPHILS % 0.5 % (0.0-2.0); EOSINOPHILS # 0.2 10^3/ul (0.0-0.5); EOSINOPHILS % 3.1 % (0.0-7.0); HEMOGLOBIN 10.5 g/dl (14.0-18.0); LYMPHOCYTES % 13.5 % (15.0-51.0); MEAN CORPUSCULAR HEMOGLOBIN 27.3 pg (29.0-33.0); MEAN CORPUSCULAR HGB CONC 31.8 g/dl (32.0-37.0); MEAN CORPUSCULAR VOLUME 85.9 fl (82.0-101.0); MEAN PLATELET VOLUME 10.9 fl (7.4-10.4); MONOCYTE # 0.4 10^3/ul (0.3-0.9); MONOCYTES % 5.2 % (0.0-11.0); NEUTROPHIL # 5.8 10^3/ul (1.6-7.5); NEUTROPHILS % 77.3 % (39.0-77.0); PLATELET COUNT 290 10^3/UL (140-415); RED BLOOD COUNT 3.84 10^6/ul (4.70-6.10); RED CELL DISTRIBUTION WIDTH 15.5 % (11.5-14.5); WHITE BLOOD COUNT 7.5 10^3/ul (4.8-10.8)
[2016-10-25 05:33] LABS: CALCIUM 8.9 mg/dl (8.4-10.2); CREATININE 0.75 mg/dl (0.61-1.24); PHOSPHORUS 3.1 mg/dl (2.5-4.9)
[2016-10-25] MEDS: AL HYDROX/MG HYDROX/SIMETH 30 ML CUP PO SCH ×3 (06:58→18:44)
--- NOTE | 2016-10-25 07:09 | PN ---
Date/Time of Note Date/Time of Note DATE: 10/25/16 TIME: 07:06 Assessment/Plan VTE Prophylaxis VTE Prophylaxis Intervention: other Lines/Catheters IV Catheter Type (from Nrs): PICC Line Central line still needed: Yes Urinary Cath still in place: Yes Reason Cath still needed: other (indicate) Assessment/Plan Chief Complaint/Hosp Course Arrhythmia/torsades Etiology likely from psychotropic medications Patient placed on dopamine with improvement All psychotropic medications were discontinued We will monitor closely Transient ST elevation Etiology unclear questionable spasm Serial troponins will be monitored Cardiology is aware follow-up recommendations Non-STEMI status post cardiac cath with PCI to the RCA Continue current medical management with aspirin Plavix metoprolol Patient is difficult as he has been noncompliant with certain medications Appreciate neurology's evaluation Follow-up cardiology with recommendations Hypertension Continue current medical management Dyslipidemia Continue statin therapy Parkinson's disease with dementia Appreciate neurology evaluation Patient will not tolerate MRI Continue medical management Dysphasia Continue aspiration precautions Nonoliguric acute kidney injury Etiology is likely hemodynamics Renal function is improved with IV hydration Continue to monitor Hypernatremia Improved Continue to encourage free water intake cont D5 water Anemia Monitor H&H levels GI DVT prophylaxis Continue PPI and SCDs Bipolar disorder/psychosis Patient's pending telemetry psych evaluation Continue current medical management Psychotropic meds were discontinued due to arrhythmia Continue valproic acid Transaminitis Possibly medication related To monitor Mild leukocytosis Monitor closely No obvious no obvious signs of sepsis at this time Problems: Subjective 24 Hr Interval Summary Free Text/Dictation Patient seen and examined Remains on dopamine drip Patient took his medications yesterday No other events noted Exam/Review of Systems Vital Signs Vitals Vital Signs Date Time Temp Pulse Resp B/P Pulse Ox O2 Delivery O2 Flow Rate FiO2 10/25/16 05:00 68 15 142/69 10/25/16 04:30 99 10/25/16 04:00 98.5 Nasal Cannula 3.0 10/24/16 20:13 21 Intake and Output 10/24/16 10/24/16 10/25/16 15:00 23:00 07:00 Intake Total 927.68 ml 773.37 ml 759.6 ml Output Total 865 ml 1250 ml 925 ml Balance 62.68 ml -476.63 ml -165.4 ml Exam HEENT: Head is normocephalic, NECK: Supple. HEART: Irregular LUNGS: Show diminished breath sounds at base. ABDOMEN: Soft, nontender to palpation without rebound or guarding. EXTREMITIES: Negative for clubbing, cyanosis. DERMATOLOGIC: No rashes. MUSCULOSKELETAL: No joint effusions, NEUROLOGIC: No change in exam. Results Result Diagram: 10/25/1644410/25/16444 Results 24 hrs Laboratory Tests Test 10/25/16 04:45 White Blood Count 7.5 # Red Blood Count 3.84 L Hemoglobin 10.5 L Hematocrit 33.0 L Mean Corpuscular Volume 85.9 Mean Corpuscular Hemoglobin 27.3 L Mean Corpuscular Hemoglobin Concent 31.8 L Red Cell Distribution Width 15.5 H Platelet Count 290 Mean Platelet Volume 10.9 H Neutrophils % 77.3 H Lymphocytes % 13.5 L Monocytes % 5.2 Eosinophils % 3.1 Basophils % 0.5 Nucleated Red Blood Cells % 0.0 Neutrophils # 5.8 Lymphocytes # 1.0 Monocytes # 0.4 Eosinophils # 0.2 Basophils # 0.0 Nucleated Red Blood Cells # 0.0 Sodium Level 141 Potassium Level 4.0 Chloride Level 103 Carbon Dioxide Level 29 Anion Gap 13 Blood Urea Nitrogen 9 Creatinine 0.75 Glucose Level 257 #H Calcium Level 8.9 Phosphorus Level 3.1 Magnesium Level 2.0 Medications Medications Current Medications Clopidogrel Bisulfate (plaVIX) 75 mg DAILY PO Last administered on 10/24/16 08 :58; Admin Dose 75 MG; Start 10/20/16 at 09:00 Aspirin (Aspirin) 81 mg DAILY PO Last administered on 10/24/16 08:57; Admin Dose 81 MG; Start 10/20/16 at 09:00 Atorvastatin Calcium (Lipitor) 40 mg HS PO Last administered on 10/24/16 21:24 ; Admin Dose 40 MG; Start 10/19/16 at 21:00 Morphine Sulfate (morphine) 2 mg Q2H PRN IV FOR NON CARDIAC PAIN (4-10) Last administered on 10/21/16 09:51; Admin Dose 2 MG; Start 10/19/16 at 12:00 Acetaminophen (Tylenol Tab) 650 mg Q6H PRN PO PAIN AND OR ELEVATED TEMP; Start 10/20/16 at 08:00 Bisacodyl (Dulcolax) 10 mg DAILY PRN PO CONSTIPATION; Start 10/20/16 at 08:00 Divalproex Sodium (Depakote) 500 mg DAILY@19 PO Last administered on 10/24/16 20:17; Admin Dose 500 MG; Start 10/20/16 at 09:00 Famotidine (Pepcid) 20 mg BID PO Last administered on 10/24/16 21:24; Admin Dose 20 MG; Start 10/20/16 at 09:00 Lorazepam (Ativan) 0.25 mg TID PO Last administered on 10/24/16 21:24; Admin Dose 0.25 MG; Start 10/20/16 at 09:45 Memantine (Namenda) 5 mg BID PO Last administered on 10/24/16 21:24; Admin Dose 5 MG; Start 10/20/16 at 10:00 Docusate Sodium (Colace) 100 mg DAILY PO Last administered on 10/23/16 09:22; Admin Dose 100 MG; Start 10/20/16 at 09:30 Folic Acid (Folic Acid) 1 mg DAILY PO Last administered on 10/23/16 09:23; Admin Dose 1 MG; Start 10/21/16 at 09:30 Gabapentin (Neurontin) 300 mg TID PO Last administered on 10/24/16 21:24; Admin Dose 300 MG; Start 10/20/16 at 09:00 Al Hydrox/Mg Hydrox/Simethicone (Mag-Al Plus) 30 ml Q6 PO Last administered on 10/25/16 06:58; Admin Dose 30 ML; Start 10/20/16 at 12:00 Magnesium Hydroxide (Milk Of Mag) 30 ml HS PO Last administered on 10/24/16 21 :23; Admin Dose 30 ML; Start 10/20/16 at 21:00 Divalproex Sodium (Depakote) 250 mg BID@09,14 PO Last administered on 13:31; Admin Dose 250 MG; Start 10/20/16 at 10:30 Carbidopa/ Levodopa 1 tab 1 tab TID PO Last administered on 10/24/16 21:24; Admin Dose 1 TAB; Start 10/20/16 at 13:00 Dopamine HCl/ Dextrose 250 ml @ 5.28 mls/hr TITRATE IV Last administered on 01:32; Admin Dose 18.48 MLS/HR; Start 10/21/16 at 19:30 Isosorbide Mononitrate 30 mg 30 mg DAILY PO Last administered on 10/23/16 09: 22; Admin Dose 30 MG; Start 10/22/16 at 09:00 Dextrose (D5W) 1,000 ml @ 50 mls/hr Q20H IV Last administered on 10/24/16 16: 00; Admin Dose 50 MLS/HR; Start 10/22/16 at 08:00 IV Flush (NS 10 ml) 10 ml PRN PRN IV IV PROTOCOL; Start 10/23/16 at 18:00 KYLIE CONDON DO Oct 25, 2016 07:09
[2016-10-25] MEDS: DOCUSATE SODIUM 100 MG CAP PO SCH (08:48)
[2016-10-25] MEDS: ASPIRIN 81 MG TAB PO SCH (08:49)
[2016-10-25] MEDS: MEMANTINE 5 MG TAB PO SCH ×2 (08:53→21:41)
[2016-10-25] MEDS: FOLIC ACID 1 MG TAB PO SCH (08:53)
[2016-10-25] MEDS: CLOPIDOGREL 75 MG TAB PO SCH (08:57)
[2016-10-25] MEDS: GABAPENTIN 300 MG CAP PO SCH ×3 (08:57→21:00)
[2016-10-25] MEDS: FAMOTIDINE 20 MG TAB PO SCH ×2 (08:57→21:00)
[2016-10-25] MEDS: DIVALPROEX (EC) 250 MG TAB PO SCH ×2 (08:58→14:10)
[2016-10-25] MEDS: CARBIDOPA/LEVODOPA 25-100 (CR) TAB PO SCH ×3 (08:58→21:36)
[2016-10-25] MEDS: ISOSORBIDE MONONITRATE(SR)30 MG TAB PO SCH (08:58)
[2016-10-25] MEDS: LORAZEPAM 0.5 MG TAB PO SCH ×3 (09:04→21:36)
[2016-10-25] MEDS ORDERED: MAGNESIUM SULFATE 2 GM/50 ML 50 ML IVPB ONE (09:30)
--- NOTE | 2016-10-25 09:34 | PN ---
Date/Time of Note Date/Time of Note DATE: 10/25/16 TIME: 09:26 Assessment/Plan VTE Prophylaxis VTE Prophylaxis Intervention: other VTE Contraindication Reason: patient non compliant Lines/Catheters IV Catheter Type (from Nrsg): PICC Line Central line still needed: Yes Urinary Cath still in place: Yes Reason Cath still needed: other (indicate) Assessment/Plan Assessment/Plan Transient anterior ST elevation: occurred during initial hospitalization and then resolved spontaneously. Cath did not show an LAD lesion. LV gram without anterior wall motion abnormalities. The pt had recurrence in the setting of tachycardia (130s) and dopamine. Seemed to resolve after NTG and HR improvement from decreasing dopamine so unclear which was useful but coronary vasospasm is a possibility. Mild trop bump to 2 but now back down. Torsades/PMVT: bradycardia driven in setting of QTC ~600 due to psych meds. No recurrence so far on dopamine and holding psych meds Prolonged QTc: due to psych meds; improving NSTEMI: Trop peaked at [address]. [address] elevation?. Echo with EF 50% and possible LAD territory hypokinesis but no akinesis. Cath showed no LAD lesion but a proximal RCA lesion and inferior wall motion abnormalities. A drug eluting stent was placed due to in-stent restenosis. Pt was agreeable to taking meds prior to cardiac cath, then refused. Now was convinced to take it. 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 Cardiomyopathy: EF ~45% here but poor study. Likely ischemic but may have a component of takotsubo based on EKG and wall motion changes. 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 Took ASA/Plavix this am but non-compliant with others. Exam/Review of Systems Vital Signs Vitals Vital Signs Date Time Temp Pulse Resp B/P Pulse Ox O2 Delivery O2 Flow Rate FiO2 10/25/16 08:00 72 10/25/16 07:30 15 124/62 10/25/16 06:30 99 Nasal Cannula 10/25/16 06:00 3.0 10/25/16 04:00 98.5 10/24/16 20:13 21 Intake and Output 10/24/16 10/24/16 10/25/16 15:00 23:00 07:00 Intake Total 927.68 ml 773.37 ml 839.6 ml Output Total 865 ml 1250 ml 1275 ml Balance 62.68 ml -476.63 ml -435.4 ml Exam Constitutional: NAD, responsive Neck: non-tender, supple, No jvd Respiratory: clear to auscultation, normal air movement, No crackles/rales, No wheezing Cardiovascular: nl pulses, regular rate and rhythm, No S3, No S4, No edema, No systolic murmur Gastrointestinal: nl liver, spleen, non-tender, soft Extremities: normal pulses, No calf tenderness, No clubbing, No cyanosis, No edema Results Result Diagram: 10/25/16 0445 10/25/165 Results 24 hrs Laboratory Tests Test 10/25/16 04:45 White Blood Count 7.5 # Red Blood Count 3.84 L Hemoglobin 10.5 L Hematocrit 33.0 L Mean Corpuscular Volume 85.9 Mean Corpuscular Hemoglobin 27.3 L Mean Corpuscular Hemoglobin Concent 31.8 L Red Cell Distribution Width 15.5 H Platelet Count 290 Mean Platelet Volume 10.9 H Neutrophils % 77.3 H Lymphocytes % 13.5 L Monocytes % 5.2 Eosinophils % 3.1 Basophils % 0.5 Nucleated Red Blood Cells % 0.0 Neutrophils # 5.8 Lymphocytes # 1.0 Monocytes # 0.4 Eosinophils # 0.2 Basophils # 0.0 Nucleated Red Blood Cells # 0.0 Sodium Level 141 Potassium Level 4.0 Chloride Level 103 Carbon Dioxide Level 29 Anion Gap 13 Blood Urea Nitrogen 9 Creatinine 0.75 Glucose Level 257 #H Calcium Level 8.9 Phosphorus Level 3.1 Magnesium Level 2.0 Medications Medications Current Medications Clopidogrel Bisulfate (plaVIX) 75 mg DAILY PO Last administered on 10/25/16 08 :57; Admin Dose 75 MG; Start 10/20/16 at 09:00 Aspirin (Aspirin) 81 mg DAILY PO Last administered on 10/25/16 08:49; Admin Dose 81 MG; Start 10/20/16 at 09:00 Atorvastatin Calcium (Lipitor) 40 mg HS PO Last administered on 10/24/16 21:24 ; Admin Dose 40 MG; Start 10/19/16 at 21:00 Morphine Sulfate (morphine) 2 mg Q2H PRN IV FOR NON CARDIAC PAIN (4-10) Last administered on 10/21/16 09:51; Admin Dose 2 MG; Start 10/19/16 at 12:00 Acetaminophen (Tylenol Tab) 650 mg Q6H PRN PO PAIN AND OR ELEVATED TEMP; Start 10/20/16 at 08:00 Bisacodyl (Dulcolax) 10 mg DAILY PRN PO CONSTIPATION; Start 10/20/16 at 08:00 Divalproex Sodium (Depakote) 500 mg DAILY@19 PO Last administered on 10/24/16 20:17; Admin Dose 500 MG; Start 10/20/16 at 09:00 Famotidine (Pepcid) 20 mg BID PO Last administered on 10/24/16 21:24; Admin Dose 20 MG; Start 10/20/16 at 09:00 Lorazepam (Ativan) 0.25 mg TID PO Last administered on 10/25/16 09:04; Admin Dose 0.25 MG; Start 10/20/16 at 09:45 Memantine (Namenda) 5 mg BID PO Last administered on 10/24/16 21:24; Admin Dose 5 MG; Start 10/20/16 at 10:00 Docusate Sodium (Colace) 100 mg DAILY PO Last administered on 10/25/16 08:48; Admin Dose 100 MG; Start 10/20/16 at 09:30 Folic Acid (Folic Acid) 1 mg DAILY PO Last administered on 10/23/16 09:23; Admin Dose 1 MG; Start 10/21/16 at 09:30 Gabapentin (Neurontin) 300 mg TID PO Last administered on 10/24/16 21:24; Admin Dose 300 MG; Start 10/20/16 at 09:00 Al Hydrox/Mg Hydrox/Simethicone (Mag-Al Plus) 30 ml Q6 PO Last administered on 10/25/16 06:58; Admin Dose 30 ML; Start 10/20/16 at 12:00 Magnesium Hydroxide (Milk Of Mag) 30 ml HS PO Last administered on 10/24/16 21 :23; Admin Dose 30 ML; Start 10/20/16 at 21:00 Divalproex Sodium (Depakote) 250 mg BID@09,14 PO Last administered on 13:31; Admin Dose 250 MG; Start 10/20/16 at 10:30 Carbidopa/ Levodopa 1 tab 1 tab TID PO Last administered on 10/24/16 21:24; Admin Dose 1 TAB; Start 10/20/16 at 13:00 Dopamine HCl/ Dextrose 250 ml @ 5.28 mls/hr TITRATE IV Last administered on 01:32; Admin Dose 18.48 MLS/HR; Start 10/21/16 at 19:30 Isosorbide Mononitrate 30 mg 30 mg DAILY PO Last administered on 10/23/16 09: 22; Admin Dose 30 MG; Start 10/22/16 at 09:00 Dextrose (D5W) 1,000 ml @ 20 mls/hr Q24H IV Last administered on 10/24/16 16: 00; Admin Dose 50 MLS/HR; Start 10/22/16 at 08:00 IV Flush (NS 10 ml) 10 ml PRN PRN IV IV PROTOCOL; Start 10/23/16 at 18:00 KAMERON SHAIKH MD Oct 25, 2016 09:34
[2016-10-25] MEDS: DEXTROSE 5% 1,000 ML IV SCH ×2 (13:30→20:39)
[2016-10-25] MEDS: MAGNESIUM HYDROXIDE 30ML CUP PO SCH (21:00)
[2016-10-25] MEDS: DIVALPROEX (EC) 500 MG TAB PO SCH (21:20)
[2016-10-25] MEDS: ATORVASTATIN 40 MG TAB PO SCH (21:37)
[2016-10-26] VITALS (55 sets, daily range): BP systolic 77–134; BP diastolic 46–80; PULSE 63–109; RESP 10–21
[2016-10-26 05:14] LABS: BASOPHILS % 0.4 % (0.0-2.0); EOSINOPHILS # 0.2 10^3/ul (0.0-0.5); EOSINOPHILS % 2.1 % (0.0-7.0); HEMOGLOBIN 9.8 g/dl (14.0-18.0); LYMPHOCYTES % 12.7 % (15.0-51.0); MEAN CORPUSCULAR HEMOGLOBIN 27.4 pg (29.0-33.0); MEAN CORPUSCULAR HGB CONC 31.6 g/dl (32.0-37.0); MEAN CORPUSCULAR VOLUME 86.6 fl (82.0-101.0); MEAN PLATELET VOLUME 11.1 fl (7.4-10.4); MONOCYTE # 0.4 10^3/ul (0.3-0.9); MONOCYTES % 4.8 % (0.0-11.0); NEUTROPHIL # 6.1 10^3/ul (1.6-7.5); NEUTROPHILS % 79.6 % (39.0-77.0); PLATELET COUNT 284 10^3/UL (140-415); RED BLOOD COUNT 3.58 10^6/ul (4.70-6.10); RED CELL DISTRIBUTION WIDTH 15.6 % (11.5-14.5); WHITE BLOOD COUNT 7.7 10^3/ul (4.8-10.8)
[2016-10-26 05:47] LABS: ALBUMIN 2.6 g/dl (3.3-4.9); BILIRUBIN,INDIRECT 0.2 mg/dl (0-1.1); BILIRUBIN,TOTAL 0.2 mg/dl (0.2-1.3); TOTAL PROTEIN 4.9 g/dl (6.1-8.1)
[2016-10-26 05:51] LABS: CREATININE 0.78 mg/dl (0.61-1.24); MAGNESIUM 1.8 mg/dl (1.7-2.5); PHOSPHORUS 2.9 mg/dl (2.5-4.9); POTASSIUM 4.4 mmol/L (3.5-5.1)
[2016-10-26] MEDS: AL HYDROX/MG HYDROX/SIMETH 30 ML CUP PO SCH ×4 (06:13→17:58)
--- NOTE | 2016-10-26 07:24 | PN ---
Date/Time of Note Date/Time of Note DATE: 10/26/16 TIME: 07:22 Assessment/Plan VTE Prophylaxis VTE Prophylaxis Intervention: other Lines/Catheters IV Catheter Type (from Nrs): PICC Line Central line still needed: Yes Urinary Cath still in place: Yes Reason Cath still needed: other (indicate) Assessment/Plan Chief Complaint/Hosp Course Arrhythmia/torsades Etiology likely from psychotropic medications Patient on dopamine drip, being weaned off All psychotropic medications were discontinued We will monitor closely Transient ST elevation Etiology unclear questionable spasm Serial troponins will be monitored Improved Cardiology is aware follow-up recommendations Non-STEMI status post cardiac cath with PCI to the RCA Continue current medical management with aspirin Plavix metoprolol Patient is difficult as he has been noncompliant with certain medications Appreciate neurology's evaluation Follow-up cardiology with recommendations Hypotension Etiology likely from volume depletion, medications, low suspicion for sepsis at this time We will check a lactic acid, pro-calcitonin, chest x-ray We will give a fluid challenge Place parameters on blood pressure medications Dyslipidemia Continue statin therapy Parkinson's disease with dementia Appreciate neurology evaluation Patient will not tolerate MRI Continue medical management Dysphasia Continue aspiration precautions Nonoliguric acute kidney injury Etiology is likely hemodynamics Renal function is improved with IV hydration Continue to monitor Hypernatremia Improved Continue to encourage free water intake Anemia Monitor H&H levels GI DVT prophylaxis Continue PPI and SCDs Bipolar disorder/psychosis Patient's pending telemetry psych evaluation Continue current medical management Psychotropic meds were discontinued due to arrhythmia Continue valproic acid Transaminitis Resolved Possibly medication related To monitor Mild leukocytosis Resolved Monitor closely No obvious no obvious signs of sepsis at this time Problems: Subjective 24 Hr Interval Summary Free Text/Dictation Patient seen and examined Being weaned off dopamine Patient noted to be hypotensive, no signs of sepsis no cough no fever no productive sputum No other events noted Patient took his medications yesterday Exam/Review of Systems Vital Signs Vitals Vital Signs Date Time Temp Pulse Resp B/P Pulse Ox O2 Delivery O2 Flow Rate FiO2 10/26/16 07:00 93 16 96/60 98 Room Air 10/26/16 04:00 98.4 10/26/16 02:11 21 10/25/16 08:00 2.0 Intake and Output 10/25/16 10/25/16 10/26/16 15:00 23:00 07:00 Intake Total 979.6 ml 556 ml 221 ml Output Total 810 ml 730 ml 940 ml Balance 169.6 ml -174 ml -719 ml Exam HEENT: Head is normocephalic, NECK: Supple. HEART: Irregular LUNGS: Show diminished breath sounds at base. ABDOMEN: Soft, nontender to palpation without rebound or guarding. EXTREMITIES: Negative for clubbing, cyanosis. DERMATOLOGIC: No rashes. MUSCULOSKELETAL: No joint effusions, NEUROLOGIC: No change in exam. Results Result Diagram: 10/26/1641910/26/16419 Results 24 hrs Laboratory Tests Test 10/25/16 10:24 10/26/16 04:20 Bedside Glucose 138 White Blood Count 7.7 Red Blood Count 3.58 L Hemoglobin 9.8 L Hematocrit 31.0 L Mean Corpuscular Volume 86.6 Mean Corpuscular Hemoglobin 27.4 L Mean Corpuscular Hemoglobin Concent 31.6 L Red Cell Distribution Width 15.6 H Platelet Count 284 Mean Platelet Volume 11.1 H Neutrophils % 79.6 H Lymphocytes % 12.7 L Monocytes % 4.8 Eosinophils % 2.1 Basophils % 0.4 Nucleated Red Blood Cells % 0.0 Neutrophils # 6.1 Lymphocytes # 1.0 Monocytes # 0.4 Eosinophils # 0.2 Basophils # 0.0 Nucleated Red Blood Cells # 0.0 Sodium Level 137 Potassium Level 4.4 Chloride Level 101 Carbon Dioxide Level 29 Anion Gap 11 Blood Urea Nitrogen 10 Creatinine 0.78 Glucose Level 254 H Calcium Level 9.0 Phosphorus Level 2.9 Magnesium Level 1.8 Total Bilirubin 0.2 Direct Bilirubin 0.00 Indirect Bilirubin 0.2 Aspartate Amino Transf (AST/SGOT) 21 Alanine Aminotransferase (ALT/SGPT) 21 Alkaline Phosphatase 33 L Total Protein 4.9 L Albumin 2.6 L Medications Medications Current Medications Clopidogrel Bisulfate (plaVIX) 75 mg DAILY PO Last administered on 10/25/16 08 :57; Admin Dose 75 MG; Start 10/20/16 at 09:00 Aspirin (Aspirin) 81 mg DAILY PO Last administered on 10/25/16 08:49; Admin Dose 81 MG; Start 10/20/16 at 09:00 Atorvastatin Calcium (Lipitor) 40 mg HS PO Last administered on 10/25/16 21:37 ; Admin Dose 40 MG; Start 10/19/16 at 21:00 Morphine Sulfate (morphine) 2 mg Q2H PRN IV FOR NON CARDIAC PAIN (4-10) Last administered on 10/21/16 09:51; Admin Dose 2 MG; Start 10/19/16 at 12:00 Acetaminophen (Tylenol Tab) 650 mg Q6H PRN PO PAIN AND OR ELEVATED TEMP; Start 10/20/16 at 08:00 Bisacodyl (Dulcolax) 10 mg DAILY PRN PO CONSTIPATION; Start 10/20/16 at 08:00 Divalproex Sodium (Depakote) 500 mg DAILY@19 PO Last administered on 10/25/16 21:20; Admin Dose 500 MG; Start 10/20/16 at 09:00 Famotidine (Pepcid) 20 mg BID PO Last administered on 10/24/16 21:24; Admin Dose 20 MG; Start 10/20/16 at 09:00 Lorazepam (Ativan) 0.25 mg TID PO Last administered on 10/25/16 21:36; Admin Dose 0.25 MG; Start 10/20/16 at 09:45 Memantine (Namenda) 5 mg BID PO Last administered on 10/25/16 21:41; Admin Dose 5 MG; Start 10/20/16 at 10:00 Docusate Sodium (Colace) 100 mg DAILY PO Last administered on 10/25/16 08:48; Admin Dose 100 MG; Start 10/20/16 at 09:30 Folic Acid (Folic Acid) 1 mg DAILY PO Last administered on 10/23/16 09:23; Admin Dose 1 MG; Start 10/21/16 at 09:30 Gabapentin (Neurontin) 300 mg TID PO Last administered on 10/25/16 13:05; Admin Dose 300 MG; Start 10/20/16 at 09:00 Al Hydrox/Mg Hydrox/Simethicone (Mag-Al Plus) 30 ml Q6 PO Last administered on 10/26/16 06:13; Admin Dose 30 ML; Start 10/20/16 at 12:00 Magnesium Hydroxide (Milk Of Mag) 30 ml HS PO Last administered on 10/24/16 21 :23; Admin Dose 30 ML; Start 10/20/16 at 21:00 Divalproex Sodium (Depakote) 250 mg BID@,14 PO Last administered on 14:10; Admin Dose 250 MG; Start 10/20/16 at 10:30 Carbidopa/ Levodopa 1 tab 1 tab TID PO Last administered on 10/25/16 21:36; Admin Dose 1 TAB; Start 10/20/16 at 13:00 Dopamine HCl/ Dextrose 250 ml @ 5.28 mls/hr TITRATE IV Last administered on 20:39; Admin Dose 10.56 MLS/HR; Start 10/21/16 at 19:30 Isosorbide Mononitrate (Imdur) 30 mg DAILY PO Last administered on 10/23/16 09 :22; Admin Dose 30 MG; Start 10/22/16 at 09:00 IV Flush 10 ml 10 ml PRN PRN IV IV PROTOCOL; Start 10/23/16 at 18:00 Sodium Chloride 250 ml @ 250 mls/hr Q1H ONCE IV ; Start 10/26/16 at 07:30; Stop 10/26/16 at 08:29 Sodium Chloride (NS) 1,000 ml @ 50 mls/hr Q20H IV ; Start 10/26/16 at 07:30 KYLIE CONDON DO Oct 26, 2016 07:24
[2016-10-26] MEDS ORDERED: SOD CHLORIDE 0.9% 250 ML IV ONE (07:30)
[2016-10-26] MEDS ORDERED: MAGNESIUM SULFATE 2 GM/50 ML 50 ML IVPB ONE (07:30)
[2016-10-26] MEDS: SOD CHLORIDE 0.9% 1,000 ML IV SCH (08:08)
--- NOTE | 2016-10-26 08:34 | RADRPT ---
PROCEDURE: XR Chest. CLINICAL INDICATION: Shortness of breath. TECHNIQUE: Single frontal view. COMPARISON: 10/23/2016. FINDINGS: The lungs are clear. The heart size is normal. There is a right arm PICC line with the tip in the lower superior vena ca va. Benign calcified left hilar lymph nodes are once again noted. There is no pleural effusion or pneumothorax. There has been prior left shoulder surgery with metal surgical anchor device noted. IMPRESSION: 1. Right arm PICC line in satisfactory position. 2. Benign calcified left hilar lymph nodes. 3. Clear lungs. 4. Prior left shoulder surgery. RPTAT: QQ .Derrick Ren MD, MD Date Time Electronically viewed and signed by .Derrick Ren MD, MD on 10/26/2016 08:33 .R/
[2016-10-26] MEDS: FAMOTIDINE 20 MG TAB PO SCH ×2 (09:09→21:00)
[2016-10-26] MEDS: ISOSORBIDE MONONITRATE(SR)30 MG TAB PO SCH (09:09)
[2016-10-26] MEDS: LORAZEPAM 0.5 MG TAB PO SCH ×3 (09:10→21:27)
[2016-10-26] MEDS: FOLIC ACID 1 MG TAB PO SCH (09:10)
[2016-10-26] MEDS: MEMANTINE 5 MG TAB PO SCH ×2 (09:10→21:00)
[2016-10-26] MEDS: DOCUSATE SODIUM 100 MG CAP PO SCH (09:10)
[2016-10-26] MEDS: GABAPENTIN 300 MG CAP PO SCH ×3 (09:10→21:00)
[2016-10-26] MEDS: CARBIDOPA/LEVODOPA 25-100 (CR) TAB PO SCH ×3 (09:10→21:27)
[2016-10-26] MEDS: CLOPIDOGREL 75 MG TAB PO SCH (09:10)
[2016-10-26] MEDS: ASPIRIN 81 MG TAB PO SCH (09:10)
[2016-10-26] MEDS: DIVALPROEX (EC) 250 MG TAB PO SCH ×2 (10:52→14:38)
--- NOTE | 2016-10-26 12:54 | CONS ---
DATE OF ADMISSION: 10/19/2016 DATE OF CONSULTATION: 10/20/[address] Alarcon for kind referral for evaluation of dementia, Parkinsonism and possible hydrocephalus on CAT scan. HISTORY OF PRESENT ILLNESS: The patient is a 71-year-old gentleman who was transferred from [facility] with acute myocardial infarction and he underwent stenting, currently in ICU. According to the chart, the patient has a history of bipolar disorder with psychotic features, hypertension, dyslipidemia, as well as Parkinson's disease and dementia. In an outside facility at [facility], the patient had a CAT scan of the heart which shows prominence of ventricles greater than expected for degree of atrophy with question of communicating hydrocephalus, white matter disease. No other abnormality. The patient also has anemia. ALLERGIES: HE IS ALLERGIC TO amoxicillin. MEDICATION: His current medications include: 1. Folate. 2. Seroquel 50 at bedtime. 3. Trazodone 25 at bedtime. 4. Carbidopa/levodopa 25/100 t.i.d. 5. Depakote 250 b.i.d. 6. Namenda 5 b.i.d. 7. Plavix. 8. Aspirin. 9. Depakote 500 at bedtime. 10. Gabapentin 300 t.i.d. 11. Atorvastatin 40. 12. Lopressor. 13. Morphine for pain. His medications prior admission included: 14. Trazodone 25 at bedtime. 15. Quetiapine 50 in the evening and 100 t.i.d. 16. Namenda 5 mg b.i.d. 17. Folate. 18. Famotidine. 19. Docusate sodium. 20. Depakote 500 mg at bedtime. 21. Gabapentin 300 t.i.d. 22. Lorazepam 0.25 t.i.d. p.r.n. 23. Carbidopa/levodopa 25/100 t.i.d. 24. [____] 25. Atorvastatin. 26. Depakote 250 b.i.d. 27. Zyprexa 7.5 mg four times a day. SOCIAL HISTORY: No alcohol, tobacco or drug use. FAMILY HISTORY: Noncontributory. REVIEW OF SYSTEMS: All present and past systems includes the above history of present illness. The patient is not very cooperative with examination but he denies any headaches or any pain currently. PHYSICAL EXAMINATION: VITAL SIGNS: Temperature 98.3, pulse 85, respirations 14, blood pressure 157/93. GENERAL: In no acute distress, lying in bed. HEENT: Normocephalic, atraumatic head. No carotid bruits. No meningeal signs. LUNGS: Clear. ABDOMEN: Soft. EXTREMITIES: No cyanosis, clubbing, or edema. NEUROLOGIC: He is awake, alert and oriented x1 only. Not cooperative with examination. He has fluid speech. Cranial nerve examination is intact to visual de jesus to threat bilaterally. Pupils reactive from 3 to 2 mm bilaterally. Somewhat slow saccadic eye movements, may be secondary to lack of cooperation though, but overall full extraocular movements. No nystagmus. Symmetrical face. Normal facial strength and sensation. Tongue is midline. Palate elevates. Motor strength examination is very limited. Patient did not allow me to do manual strength testing, but he seems to be moving all extremities symmetrically. He has a tremor with cogwheeling in upper and lower extremities. He states that he feels my touch throughout. He has resting tremor in bilateral hands and toes. According to the nursing staff, the patient is very uncooperative with examination and he at times refuses his medications and seems to be paranoid. LABORATORY: I forgot to mention that his labs show sodium 148, chloride 114, bicarb 19, AST 63, ALT 71, albumin 3.0. Rest of his lab work was within normal limits. CBC shows anemia, hemoglobin 10, hematocrit 30, normal WBC and platelets, neutrophil 82%. IMPRESSION: 1. Acute myocardial infarction. Patient is status post stenting. 2. A reported history of Parkinsonism and dementia. 3. Reported history of mental illness, bipolar? per chart. Not clear if Parkinsonism relates to antipsychotic medications, or primariry Parkinson syndrome or Parkinson disease. CAT scan shows ventriculomegaly, possible communicating hydrocephalus. No other acute abnormality of the CAT scan. Patient is clearly not cooperative to have MRI testing. I think all Parkinsonian problems, along with dementing illness seem to be longstanding and further workup could be done later on outpatient basis. At least in the meantime, as some of his home antipsychotic medications were cut down as well as Depakote and maybe that is the reason he is more aggressive and uncooperative her, the report from [facility] shows he has been on Seroquel 50 mg at 7 p.m. as well as 100 mg t.i.d. While here, he is only on 50 at bedtime, so I will restart this dose. Also he was on Depakote 500 at bedtime and 250 b.i.d. He still gets the same dosing here. We will continue. He was taking Zyprexa 7.5 mg four times a day. It seems to be quite high the dose. I would leave comment to maybe have psychiatrist to review the medication list and but in the mean time put him on Zyprexa only b.i.d. continue rest of current treatment. Thank you very much for this interesting consultation. Dictated By: Don Valverde MD /debby/halle /Document#: [id number] ELOISA
[2016-10-26] MEDS ORDERED: morphine 4 MG/ML VIAL IV PRN (14:00)
[2016-10-26] MEDS: DIVALPROEX (EC) 500 MG TAB PO SCH (18:00)
--- NOTE | 2016-10-26 19:31 | RADRPT ---
Vent Rate: 76 bpm RR Interval: 0 msec VA Interval: 158 msec QRS Duration: 86 msec QT Interval: 406 msec QTC Interval: 456 msec P-R-T [place]: 66 - -32 - 0 degrees Normal sinus rhythm Left axis deviation ST amp; T wave abnormality, consider inferior ischemia ST amp; T wave abnormality, consider anterolateral ischemia Abnormal ECG Electronically Signed By: Fox Parsons [id number]
[2016-10-26] MEDS: ATORVASTATIN 40 MG TAB PO SCH (21:00)
[2016-10-26] MEDS: MAGNESIUM HYDROXIDE 30ML CUP PO SCH (21:00)
[2016-10-27] VITALS (40 sets, daily range): BP systolic 96–147; BP diastolic 51–78; PULSE 45–85; RESP 11–20
[2016-10-27] MEDS: DOPamine-D5W 1.6 MG/ML 250 ML IV SCH (01:10)
[2016-10-27 05:25] LABS: BASOPHILS % 0.6 % (0.0-2.0); EOSINOPHILS # 0.2 10^3/ul (0.0-0.5); EOSINOPHILS % 2.2 % (0.0-7.0); HEMATOCRIT 29.9 % (42.0-52.0); HEMOGLOBIN 9.6 g/dl (14.0-18.0); LYMPHOCYTES # 1.1 10^3/ul (0.8-2.9); LYMPHOCYTES % 16.9 % (15.0-51.0); MEAN CORPUSCULAR HEMOGLOBIN 27.7 pg (29.0-33.0); MEAN CORPUSCULAR HGB CONC 32.1 g/dl (32.0-37.0); MEAN CORPUSCULAR VOLUME 86.4 fl (82.0-101.0); MEAN PLATELET VOLUME 10.8 fl (7.4-10.4); MONOCYTE # 0.4 10^3/ul (0.3-0.9); MONOCYTES % 6.1 % (0.0-11.0); NEUTROPHILS % 73.9 % (39.0-77.0); PLATELET COUNT 270 10^3/UL (140-415); RED BLOOD COUNT 3.46 10^6/ul (4.70-6.10); RED CELL DISTRIBUTION WIDTH 15.2 % (11.5-14.5); WHITE BLOOD COUNT 6.7 10^3/ul (4.8-10.8)
[2016-10-27 05:47] LABS: CALCIUM 9.3 mg/dl (8.4-10.2); CREATININE 0.92 mg/dl (0.61-1.24); PHOSPHORUS 3.3 mg/dl (2.5-4.9); POTASSIUM 4.4 mmol/L (3.5-5.1)
[2016-10-27] MEDS: SOD CHLORIDE 0.9% 1,000 ML IV SCH ×3 (06:22→21:46)
[2016-10-27] MEDS: AL HYDROX/MG HYDROX/SIMETH 30 ML CUP PO SCH ×4 (06:22→18:37)
--- NOTE | 2016-10-27 07:18 | PN ---
Date/Time of Note Date/Time of Note DATE: 10/27/16 TIME: 07:15 Assessment/Plan VTE Prophylaxis VTE Prophylaxis Intervention: other Lines/Catheters IV Catheter Type (from Nrs): Saline Lock Urinary Cath still in place: Yes Reason Cath still needed: other (indicate) Assessment/Plan Chief Complaint/Hosp Course Arrhythmia/torsades Improved Etiology likely from psychotropic medications Patient off dopamine drip All psychotropic medications were discontinued We will monitor closely Transient ST elevation Etiology unclear questionable spasm Serial troponins will be monitored Improved Cardiology is aware follow-up recommendations Non-STEMI status post cardiac cath with PCI to the RCA Continue current medical management with aspirin Plavix metoprolol Patient is difficult as he has been noncompliant with certain medications Appreciate neurology's evaluation Follow-up cardiology with recommendations Hypotension Etiology likely from volume depletion, medications, low suspicion for sepsis at this time Improving with IV fluids, plan to be seen in next [address] parameters on blood pressure medications Dyslipidemia Continue statin therapy Parkinson's disease with dementia Appreciate neurology evaluation We will order MRI of brain Continue medical management Dysphasia Continue aspiration precautions Nonoliguric acute kidney injury Etiology is likely hemodynamics Renal function is improved with IV hydration Continue to monitor Hypernatremia Improved Continue to encourage free water intake Anemia Monitor H&H levels GI DVT prophylaxis Continue PPI and SCDs Bipolar disorder/psychosis Patient's pending telemetry psych evaluation Continue current medical management Psychotropic meds were discontinued due to arrhythmia Continue valproic acid Transaminitis Resolved Possibly medication related To monitor Mild leukocytosis Resolved Monitor closely No obvious no obvious signs of sepsis at this time Problems: Subjective 24 Hr Interval Summary Free Text/Dictation Patient seen and examined Patient was weaned off dopamine Blood pressures been stable No other acute events noted Exam/Review of Systems Vital Signs Vitals Vital Signs Date Time Temp Pulse Resp B/P Pulse Ox O2 Delivery O2 Flow Rate FiO2 10/27/16 06:30 74 14 112/60 100 10/27/16 06:00 Room Air 10/27/16 04:00 98.5 10/26/16 02:11 21 10/25/16 08:00 2.0 Intake and Output 10/26/16 10/26/16 10/27/16 15:00 23:00 07:00 Intake Total 43 ml 1886.36 ml 378.84 ml Output Total 1720 ml 740 ml Balance 43 ml 166.36 ml -361.16 ml Exam HEENT: Head is normocephalic, NECK: Supple. HEART: Irregular LUNGS: Show diminished breath sounds at base. ABDOMEN: Soft, nontender to palpation without rebound or guarding. EXTREMITIES: Negative for clubbing, cyanosis. DERMATOLOGIC: No rashes. MUSCULOSKELETAL: No joint effusions, NEUROLOGIC: No change in exam. Results Result Diagram: 10/27/16 0445 10/27/16 0445 Results 24 hrs Laboratory Tests Test 10/26/16 11:00 10/27/16 04:45 Lactic Acid Level 1.8 White Blood Count 6.7 Red Blood Count 3.46 L Hemoglobin 9.6 L Hematocrit 29.9 L Mean Corpuscular Volume 86.4 Mean Corpuscular Hemoglobin 27.7 L Mean Corpuscular Hemoglobin Concent 32.1 Red Cell Distribution Width 15.2 H Platelet Count 270 Mean Platelet Volume 10.8 H Neutrophils % 73.9 Lymphocytes % 16.9 Monocytes % 6.1 Eosinophils % 2.2 Basophils % 0.6 Nucleated Red Blood Cells % 0.0 Neutrophils # 5.0 Lymphocytes # 1.1 Monocytes # 0.4 Eosinophils # 0.2 Basophils # 0.0 Nucleated Red Blood Cells # 0.0 Sodium Level 141 Potassium Level 4.4 Chloride Level 103 Carbon Dioxide Level 30 Anion Gap 12 Blood Urea Nitrogen 10 Creatinine 0.92 Glucose Level 92 # Calcium Level 9.3 Phosphorus Level 3.3 Magnesium Level 2.0 Medications Medications Current Medications Clopidogrel Bisulfate (plaVIX) 75 mg DAILY PO Last administered on 10/26/16 09 :10; Admin Dose 75 MG; Start 10/20/16 at 09:00 Aspirin (Aspirin) 81 mg DAILY PO Last administered on 10/26/16 09:10; Admin Dose 81 MG; Start 10/20/16 at 09:00 Atorvastatin Calcium (Lipitor) 40 mg HS PO Last administered on 10/25/16 21:37 ; Admin Dose 40 MG; Start 10/19/16 at 21:00 Acetaminophen (Tylenol Tab) 650 mg Q6H PRN PO PAIN AND OR ELEVATED TEMP; Start 10/20/16 at 08:00 Bisacodyl (Dulcolax) 10 mg DAILY PRN PO CONSTIPATION; Start 10/20/16 at 08:00 Divalproex Sodium (Depakote) 500 mg DAILY@19 PO Last administered on 10/26/16 18:00; Admin Dose 500 MG; Start 10/20/16 at 09:00 Famotidine (Pepcid) 20 mg BID PO Last administered on 10/26/16 09:09; Admin Dose 20 MG; Start 10/20/16 at 09:00 Lorazepam (Ativan) 0.25 mg TID PO Last administered on 10/26/16 21:27; Admin Dose 0.25 MG; Start 10/20/16 at 09:45 Memantine (Namenda) 5 mg BID PO Last administered on 10/26/16 09:10; Admin Dose 5 MG; Start 10/20/16 at 10:00 Docusate Sodium (Colace) 100 mg DAILY PO Last administered on 10/26/16 09:10; Admin Dose 100 MG; Start 10/20/16 at 09:30 Folic Acid (Folic Acid) 1 mg DAILY PO Last administered on 10/26/16 09:10; Admin Dose 1 MG; Start 10/21/16 at 09:30 Gabapentin (Neurontin) 300 mg TID PO Last administered on 10/26/16 12:48; Admin Dose 300 MG; Start 10/20/16 at 09:00 Al Hydrox/Mg Hydrox/Simethicone (Mag-Al Plus) 30 ml Q6 PO Last administered on 10/27/16 06:22; Admin Dose 30 ML; Start 10/20/16 at 12:00 Magnesium Hydroxide (Milk Of Mag) 30 ml HS PO Last administered on 10/24/16 21 :23; Admin Dose 30 ML; Start 10/20/16 at 21:00 Divalproex Sodium (Depakote) 250 mg BID@09,14 PO Last administered on 14:38; Admin Dose 250 MG; Start 10/20/16 at 10:30 Carbidopa/ Levodopa 1 tab 1 tab TID PO Last administered on 10/26/16 21:27; Admin Dose 1 TAB; Start 10/20/16 at 13:00 Dopamine HCl/ Dextrose 250 ml @ 5.28 mls/hr TITRATE IV Last administered on 01:10; Admin Dose 5.28 MLS/HR; Start 10/21/16 at 19:30 Isosorbide Mononitrate (Imdur) 30 mg DAILY PO Last administered on 10/26/16 09 :09; Admin Dose 30 MG; Start 10/22/16 at 09:00 IV Flush 10 ml 10 ml PRN PRN IV IV PROTOCOL; Start 10/23/16 at 18:00 Sodium Chloride (NS) 1,000 ml @ 50 mls/hr Q20H IV Last administered on 06:22; Admin Dose 50 MLS/HR; Start 10/26/16 at 07:30 Morphine Sulfate (morphine) 2 mg Q2H PRN IV FOR NON CARDIAC PAIN (4-10); Start 10/26/16 at 14:00 KYLIE CONDON DO Oct 27, 2016 07:18
[2016-10-27] MEDS: ISOSORBIDE MONONITRATE(SR)30 MG TAB PO SCH (09:00)
[2016-10-27] MEDS: FAMOTIDINE 20 MG TAB PO SCH ×2 (09:42→21:42)
[2016-10-27] MEDS: ASPIRIN 81 MG TAB PO SCH (09:43)
[2016-10-27] MEDS: FOLIC ACID 1 MG TAB PO SCH (09:43)
[2016-10-27] MEDS: CLOPIDOGREL 75 MG TAB PO SCH (09:43)
[2016-10-27] MEDS: CARBIDOPA/LEVODOPA 25-100 (CR) TAB PO SCH ×3 (09:43→21:42)
[2016-10-27] MEDS: GABAPENTIN 300 MG CAP PO SCH ×3 (09:43→21:42)
[2016-10-27] MEDS: MEMANTINE 5 MG TAB PO SCH ×2 (09:43→21:42)
[2016-10-27] MEDS: DIVALPROEX (EC) 250 MG TAB PO SCH ×2 (09:48→15:10)
[2016-10-27] MEDS: DOCUSATE SODIUM 100 MG CAP PO SCH (09:51)
[2016-10-27] MEDS: LORAZEPAM 0.5 MG TAB PO SCH ×3 (09:51→21:42)
[2016-10-27] MEDS: MAGNESIUM HYDROXIDE 30ML CUP PO SCH (13:36)
[2016-10-27] MEDS: DIVALPROEX (EC) 500 MG TAB PO SCH ×2 (15:08→22:51)
--- NOTE | 2016-10-27 19:22 | CONS ---
Date/Time of Note Date/Time of Note DATE: 10/27/16 TIME: 19:19 Assessment/Plan Assessment/Plan Chief Complaint/Hosp Course Transient anterior ST elevation: occurred during initial hospitalization and then resolved spontaneously. Cath did not show an LAD lesion. LV gram without anterior wall motion abnormalities. The pt had recurrence in the setting of tachycardia (130s) and dopamine. Seemed to resolve after NTG and HR improvement from decreasing dopamine so unclear which was useful but coronary vasospasm is a possibility. Mild trop bump to 2 but now back down. Torsades/PMVT: bradycardia driven in setting of QTC ~600 due to psych meds. No recurrence so far on dopamine and holding psych meds Prolonged QTc: due to psych meds; improving NSTEMI: Trop peaked at 120. Transient anterior ST elevation?. Echo with EF 50% and possible LAD territory hypokinesis but no akinesis. Cath showed no LAD lesion but a proximal RCA lesion and inferior wall motion abnormalities. A drug eluting stent was placed due to in-stent restenosis. Pt was agreeable to taking meds prior to cardiac cath, then refused. Now was convinced to take it. Compliance remains an issue buttermaker. Cardiomyopathy: EF ~45% here but poor study. Likely ischemic but may have a component of takotsubo based on EKG and wall motion changes. Parkinson's with dementia: refusing to take meds at times Hypertension Hyperlipidemia -weaned off dopamine -ASA 81 mg daily, Plavix 75 mg daily (most crucial to give to pt and seems to take it when crushed with orange juice) -Imdur 30mg daily -Lipitor 40 mg qhs -holding metoprolol -stable for transfer to telemetry Problems: Consultation Date/Type/Reason Admit Date/Time Oct 19, 2016 at 08:26 Initial Consult Date Type of Consultation: Cardiology 24 HR Interval Summary Free Text/Dictation No acute events. Off dopamine drip. Detailed Summary Additional Comments 14 point review of systems without changes. Exam/Review of Systems Vital Signs Vitals Vital Signs Date Time Temp Pulse Resp B/P Pulse Ox O2 Delivery O2 Flow Rate FiO2 10/27/16 18:30 98.4 64 19 136/60 96 Room Air 10/26/16 02:11 21 10/25/16 08:00 2.0 Intake and Output 10/26/16 10/26/16 10/27/16 15:00 23:00 07:00 Intake Total 43 ml 1886.36 ml 378.84 ml Output Total 1720 ml 890 ml Balance 43 ml 166.36 ml -511.16 ml Exam Constitutional: NAD, responsive Neck: non-tender, supple, No jvd Respiratory: clear to auscultation, normal air movement, No crackles/rales, No wheezing Cardiovascular: nl pulses, regular rate and rhythm, No S3, No S4, No edema, No systolic murmur Gastrointestinal: nl liver, spleen, non-tender, soft Extremities: normal pulses, No calf tenderness, No clubbing, No cyanosis, No edema Results Result Diagram: 10/27/1644410/27/165 Results 24 hrs Laboratory Tests Test 10/27/16 04:45 White Blood Count 6.7 Red Blood Count 3.46 L Hemoglobin 9.6 L Hematocrit 29.9 L Mean Corpuscular Volume 86.4 Mean Corpuscular Hemoglobin 27.7 L Mean Corpuscular Hemoglobin Concent 32.1 Red Cell Distribution Width 15.2 H Platelet Count 270 Mean Platelet Volume 10.8 H Neutrophils % 73.9 Lymphocytes % 16.9 Monocytes % 6.1 Eosinophils % 2.2 Basophils % 0.6 Nucleated Red Blood Cells % 0.0 Neutrophils # 5.0 Lymphocytes # 1.1 Monocytes # 0.4 Eosinophils # 0.2 Basophils # 0.0 Nucleated Red Blood Cells # 0.0 Sodium Level 141 Potassium Level 4.4 Chloride Level 103 Carbon Dioxide Level 30 Anion Gap 12 Blood Urea Nitrogen 10 Creatinine 0.92 Glucose Level 92 # Calcium Level 9.3 Phosphorus Level 3.3 Magnesium Level 2.0 Medications Medications Current Medications Clopidogrel Bisulfate (plaVIX) 75 mg DAILY PO Last administered on 10/27/16 09: 43; Admin Dose 75 MG; Start 10/20/16 at 09:00 Aspirin (Aspirin) 81 mg DAILY PO Last administered on 10/27/16 09:43; Admin Dose 81 MG; Start 10/20/16 at 09:00 Atorvastatin Calcium (Lipitor) 40 mg HS PO Last administered on 10/25/16 21:37 ; Admin Dose 40 MG; Start 10/19/16 at 21:00 Acetaminophen (Tylenol Tab) 650 mg Q6H PRN PO PAIN AND OR ELEVATED TEMP; Start 10/20/16 at 08:00 Bisacodyl (Dulcolax) 10 mg DAILY PRN PO CONSTIPATION; Start 10/20/16 at 08:00 Divalproex Sodium (Depakote) 500 mg DAILY@19 PO Last administered on 10/26/16 18:00; Admin Dose 500 MG; Start 10/20/16 at 09:00 Famotidine (Pepcid) 20 mg BID PO Last administered on 10/27/16 09:42; Admin Dose 20 MG; Start 10/20/16 at 09:00 Lorazepam (Ativan) 0.25 mg TID PO Last administered on 10/27/16 13:36; Admin Dose 0.25 MG; Start 10/20/16 at 09:45 Memantine (Namenda) 5 mg BID PO Last administered on 10/27/16 09:43; Admin Dose 5 MG; Start 10/20/16 at 10:00 Docusate Sodium (Colace) 100 mg DAILY PO Last administered on 10/27/16 09:51; Admin Dose 100 MG; Start 10/20/16 at 09:30 Folic Acid (Folic Acid) 1 mg DAILY PO Last administered on 10/27/16 09:43; Admin Dose 1 MG; Start 10/21/16 at 09:30 Gabapentin (Neurontin) 300 mg TID PO Last administered on 10/27/16 13:36; Admin Dose 300 MG; Start 10/20/16 at 09:00 Al Hydrox/Mg Hydrox/Simethicone (Mag-Al Plus) 30 ml Q6 PO Last administered on 10/27/16 18:37; Admin Dose 30 ML; Start 10/20/16 at 12:00 Magnesium Hydroxide (Milk Of Mag) 30 ml HS PO Last administered on 10/27/16 13: 36; Admin Dose 30 ML; Start 10/20/16 at 21:00 Divalproex Sodium (Depakote) 250 mg BID@,14 PO Last administered on 10/27/16 15:10; Admin Dose 250 MG; Start 10/20/16 at 10:30 Carbidopa/Levodopa (Sinemet Cr (25/ 100)) 1 tab TID PO Last administered on 10/27 13:36; Admin Dose 1 TAB; Start 10/20/16 at 13:00 Isosorbide Mononitrate (Imdur) 30 mg DAILY PO Last administered on 10/26/16 09 :09; Admin Dose 30 MG; Start 10/22/16 at 09:00 IV Flush 10 ml 10 ml PRN PRN IV IV PROTOCOL; Start 10/23/16 at 18:00 Sodium Chloride (NS) 1,000 ml @ 50 mls/hr Q20H IV Last administered on 18:32; Admin Dose 50 MLS/HR; Start 10/26/16 at 07:30 Morphine Sulfate (morphine) 2 mg Q2H PRN IV FOR NON CARDIAC PAIN (4-10); Start 10/26/16 at 14:00 NNAMDI CARBAJAL MD Oct 27, 2016 19:22
[2016-10-27] MEDS: ATORVASTATIN 40 MG TAB PO SCH (21:42)
[2016-10-27] MEDS ORDERED: LORAZEPAM 2 MG INJ IV PRN (23:00)
[2016-10-28] VITALS (12 sets, daily range): BP systolic 126–140; BP diastolic 64–89; PULSE 53–85; RESP 18–19
[2016-10-28] MEDS: AL HYDROX/MG HYDROX/SIMETH 30 ML CUP PO SCH ×6 (00:07→18:38)
[2016-10-28] MEDS: DIVALPROEX (EC) 250 MG TAB PO SCH ×2 (09:00→13:22)
[2016-10-28] MEDS: LORAZEPAM 0.5 MG TAB PO SCH ×3 (10:14→21:45)
[2016-10-28] MEDS: CLOPIDOGREL 75 MG TAB PO SCH (10:14)
[2016-10-28] MEDS: ASPIRIN 81 MG TAB PO SCH (10:14)
[2016-10-28] MEDS: FAMOTIDINE 20 MG TAB PO SCH ×2 (10:15→21:45)
[2016-10-28] MEDS: ISOSORBIDE MONONITRATE(SR)30 MG TAB PO SCH (10:15)
[2016-10-28] MEDS: FOLIC ACID 1 MG TAB PO SCH (10:15)
[2016-10-28] MEDS: MEMANTINE 5 MG TAB PO SCH ×2 (10:15→21:45)
[2016-10-28] MEDS: CARBIDOPA/LEVODOPA 25-100 (CR) TAB PO SCH ×3 (10:15→21:45)
[2016-10-28] MEDS: DOCUSATE SODIUM 100 MG CAP PO SCH (10:15)
[2016-10-28] MEDS: GABAPENTIN 300 MG CAP PO SCH ×3 (10:15→21:45)
--- NOTE | 2016-10-28 10:20 | PN ---
DATE: 10/28/2016 SUBJECTIVE DATA: The patient is stable. No events overnight. No fevers, chills, nausea, vomiting. The patient was transferred from ICU to telemetry yesterday. OBJECTIVE DATA: VITAL SIGNS: Blood pressure is 140/89, respiration 18, pulse 72, temperature 98.3. HEENT: Head is normocephalic. NECK: Supple. HEART: Regular rate. LUNGS: Show diminished breath sounds at the base. ABDOMEN: Soft, nontender to palpation. No rebound or guarding. EXTREMITIES: Negative for clubbing, cyanosis, no edema. DERMATOLOGIC: Clean. No rashes. MUSCULOSKELETAL: No joint effusions. NEUROLOGIC: No change in exam. PATIENT MEDICATIONS: Reviewed. LABORATORY AND DIAGNOSTIC DATA: Reviewed. No new labs. ASSESSMENT AND PLAN: 1. [id number] myocardial infarction. The patient is status post percutaneous coronary intervention to right coronary artery. Continue current medical management with aspirin, Plavix, holding metoprolol. The patient has been refusing his medications. The case was discussed in detail with the patient's durable power of ip attorney and Cardiology. 2. Sinus arrhythmia. Etiology is possibly from psychotropic medications, since improved. The patient is status post dopamine. Continue to monitor. 3. Hypertension, likely from volume depletion, improved. We will discontinue intravenous fluids. 4. Dyslipidemia. Continue statin therapy. 5. Parkinson's disease with dementia. The patient was evaluated by Neurology. Appreciate recommendations. continue current medical management. The patient refuses MRI of the brain. 6. Dysphagia. Continue aspiration precautions. 7. Nonoliguric acute kidney injury. Etiology secondary to hemodynamics, improved. 8. , resolved. 9. Anemia. Continue to monitor H and H levels. 10. Bipolar disorder, psychosis. Continue to monitor. 11. Transaminitis, resolved. 12. Mild leukocytosis, resolved. No evidence or signs of sepsis. Dictated By: Juanjose Alarcon DO /debby/daiana /Document#: [id number]
--- NOTE | 2016-10-28 15:28 | CONS ---
Date/Time of Note Date/Time of Note DATE: 10/28/16 TIME: 15:26 Assessment/Plan Assessment/Plan Chief Complaint/Hosp Course Transient anterior ST elevation: occurred during initial hospitalization and then resolved spontaneously. Cath did not show an LAD lesion. LV gram without anterior wall motion abnormalities. The pt had recurrence in the setting of tachycardia (130s) and dopamine. Seemed to resolve after NTG and HR improvement from decreasing dopamine so unclear which was useful but coronary vasospasm is a possibility. Mild trop bump to 2 but now back down. Torsades/PMVT: bradycardia driven in setting of QTC ~600 due to psych meds. No recurrence after holding psych meds Prolonged QTc: due to psych meds; improving NSTEMI: Trop peaked at 120. [address] elevation?. Echo with EF 50% and possible LAD territory hypokinesis but no akinesis. Cath showed no LAD lesion but a proximal RCA lesion and inferior wall motion abnormalities. A drug eluting stent was placed due to in-stent restenosis. Pt was agreeable to taking meds prior to cardiac cath, then refused. Now was convinced to take it. Compliance remains an issue care home. Cardiomyopathy: EF ~45% here but poor study. Likely ischemic but may have a component of takotsubo based on EKG and wall motion changes. Parkinson's with dementia: refusing to take meds at times Hypertension Hyperlipidemia -ASA 81 mg daily, Plavix 75 mg daily (most crucial to give to pt and seems to take it when crushed with orange juice) -Imdur 30mg daily -Lipitor 40 mg qhs -off metoprolol Problems: Consultation Date/Type/Reason Admit Date/Time Oct 19, 2016 at 08:26 Type of Consultation: Cardiology 24 HR Interval Summary Free Text/Dictation No acute events. Transferred out of ICU. Detailed Summary Additional Comments 14 point review of systems without changes. Exam/Review of Systems Vital Signs Vitals Vital Signs Date Time Temp Pulse Resp B/P Pulse Ox O2 Delivery O2 Flow Rate FiO2 10/28/16 12:07 85 10/28/16 11:36 98.5 18 140/77 98 10/27/16 18:30 Room Air 10/26/16 02:11 21 10/25/16 08:00 2.0 Intake and Output 10/27/16 10/27/16 10/28/16 15:00 23:00 07:00 Intake Total 280 ml 120 ml Output Total 650 ml 50 ml 1000 ml Balance -370 ml -50 ml -880 ml Exam Constitutional: NAD, responsive Neck: non-tender, supple, No jvd Respiratory: clear to auscultation, normal air movement, No crackles/rales, No wheezing Cardiovascular: nl pulses, regular rate and rhythm, No S3, No S4, No edema, No systolic murmur Gastrointestinal: nl liver, spleen, non-tender, soft Extremities: normal pulses, No calf tenderness, No clubbing, No cyanosis, No edema Results Result Diagram: 10/27/1644410/27/16444 Medications Medications Current Medications Clopidogrel Bisulfate (plaVIX) 75 mg DAILY PO Last administered on 10/28/16 10: 14; Admin Dose 75 MG; Start 10/20/16 at 09:00 Aspirin (Aspirin) 81 mg DAILY PO Last administered on 10/28/16 10:14; Admin Dose 81 MG; Start 10/20/16 at 09:00 Atorvastatin Calcium (Lipitor) 40 mg HS PO Last administered on 10/27/16 21:42 ; Admin Dose 40 MG; Start 10/19/16 at 21:00 Acetaminophen (Tylenol Tab) 650 mg Q6H PRN PO PAIN AND OR ELEVATED TEMP Last administered on 10/28/16 10:20; Admin Dose 650 MG; Start 10/20/16 at 08:00 Bisacodyl (Dulcolax) 10 mg DAILY PRN PO CONSTIPATION; Start 10/20/16 at 08:00 Divalproex Sodium (Depakote) 500 mg DAILY@19 PO Last administered on 10/27/16 22:51; Admin Dose 500 MG; Start 10/20/16 at 09:00 Famotidine (Pepcid) 20 mg BID PO Last administered on 10/28/16 10:15; Admin Dose 20 MG; Start 10/20/16 at 09:00 Lorazepam (Ativan) 0.25 mg TID PO Last administered on 10/28/16 13:19; Admin Dose 0.25 MG; Start 10/20/16 at 09:45 Memantine (Namenda) 5 mg BID PO Last administered on 10/28/16 10:15; Admin Dose 5 MG; Start 10/20/16 at 10:00 Docusate Sodium (Colace) 100 mg DAILY PO Last administered on 10/28/16 10:15; Admin Dose 100 MG; Start 10/20/16 at 09:30 Folic Acid (Folic Acid) 1 mg DAILY PO Last administered on 10/28/16 10:15; Admin Dose 1 MG; Start 10/21/16 at 09:30 Gabapentin (Neurontin) 300 mg TID PO Last administered on 10/28/16 13:19; Admin Dose 300 MG; Start 10/20/16 at 09:00 Al Hydrox/Mg Hydrox/Simethicone (Mag-Al Plus) 30 ml Q6 PO Last administered on 10/28/16 05:26; Admin Dose 30 ML; Start 10/20/16 at 12:00 Magnesium Hydroxide (Milk Of Mag) 30 ml HS PO Last administered on 10/27/16 13: 36; Admin Dose 30 ML; Start 10/20/16 at 21:00 Divalproex Sodium (Depakote) 250 mg BID@,14 PO Last administered on 10/28/16 13:22; Admin Dose 250 MG; Start 10/20/16 at 10:30 Carbidopa/Levodopa (Sinemet Cr (25/ 100)) 1 tab TID PO Last administered on 10/28 13:19; Admin Dose 1 TAB; Start 10/20/16 at 13:00 Isosorbide Mononitrate (Imdur) 30 mg DAILY PO Last administered on 10/28/16 10: 15; Admin Dose 30 MG; Start 10/22/16 at 09:00 IV Flush (NS 10 ml) 10 ml PRN PRN IV IV PROTOCOL; Start 10/23/16 at 18:00 Morphine Sulfate (morphine) 2 mg Q2H PRN IV FOR NON CARDIAC PAIN (4-10); Start 10/26/16 at 14:00 Lorazepam (Ativan) 1 mg Q3H PRN IV AGITATION; Start 10/27/16 at 23:00 NNAMDI CARBAJAL MD Oct 28, 2016 15:28
[2016-10-28] MEDS: MAGNESIUM HYDROXIDE 30ML CUP PO SCH (21:45)
[2016-10-28] MEDS: ATORVASTATIN 40 MG TAB PO SCH (21:45)
[2016-10-28] MEDS: DIVALPROEX (EC) 500 MG TAB PO SCH (23:15)
[2016-10-29] VITALS (12 sets, daily range): BP systolic 116–158; BP diastolic 64–80; PULSE 66–89; RESP 18–21
[2016-10-29] MEDS: AL HYDROX/MG HYDROX/SIMETH 30 ML CUP PO SCH ×4 (00:22→18:45)
[2016-10-29] MEDS: CARBIDOPA/LEVODOPA 25-100 (CR) TAB PO SCH ×3 (08:38→21:00)
[2016-10-29] MEDS: ISOSORBIDE MONONITRATE(SR)30 MG TAB PO SCH (08:38)
[2016-10-29] MEDS: CLOPIDOGREL 75 MG TAB PO SCH (08:38)
[2016-10-29] MEDS: DOCUSATE SODIUM 100 MG CAP PO SCH (08:38)
[2016-10-29] MEDS: FOLIC ACID 1 MG TAB PO SCH (08:38)
[2016-10-29] MEDS: GABAPENTIN 300 MG CAP PO SCH ×3 (08:39→21:00)
[2016-10-29] MEDS: ASPIRIN 81 MG TAB PO SCH (08:39)
[2016-10-29] MEDS: FAMOTIDINE 20 MG TAB PO SCH ×2 (08:39→21:00)
[2016-10-29] MEDS: LORAZEPAM 0.5 MG TAB PO SCH ×3 (08:39→21:00)
[2016-10-29] MEDS: MEMANTINE 5 MG TAB PO SCH ×2 (08:41→21:00)
[2016-10-29] MEDS: DIVALPROEX (EC) 250 MG TAB PO SCH ×2 (08:42→12:29)
--- NOTE | 2016-10-29 10:49 | PN ---
DATE: 10/29/2016 SUBJECTIVE DATA: The patient is subjectively stable. No acute events overnight. No fevers, chills, nausea, vomiting. No shortness of breath. OBJECTIVE DATA: VITAL SIGNS: Blood pressure is 147/80, respiration 18, pulse 80, temperature 98.6. HEENT: Head is normocephalic. NECK: Supple. HEART: Regular rate. LUNGS: Diminished breath sounds at the bases. ABDOMEN: Soft, nontender to palpation. No rebound or guarding. EXTREMITIES: Negative for clubbing, cyanosis. No edema. DERMATOLOGIC: No rashes. MUSCULOSKELETAL: No joint effusion. NEUROLOGIC: No change in exam. The patient's medications have been reviewed. LABORATORY AND DIAGNOSTIC DATA: Laboratory data has been reviewed. No new labs. ASSESSMENT AND PLAN: 1. [id number] myocardial infarction. The patient is status post cardiac catheterization with percutaneous coronary intervention to right coronary artery. Continue current medical management with aspirin, Plavix. Follow up with Cardiology for recommendations. 2. Arrhythmia likely from psychotropic medication, improved. Continue to monitor. 3. Hypotension, resolved. Continue current oral intake. 4. Dyslipidemia. Continue statin therapy. 5. Parkinson disease with dementia. The patient is being followed by Neurology. MRI has been ordered. The patient will cooperate with exam but otherwise continue parkinsonian medications. 6. Dysphagia. The patient is tolerating oral intake. 7. Nonoliguric acute kidney injury, resolved. 8. Anemia. Monitor hemoglobin and hematocrit levels. 9. Bipolar disorder, psychosis. Continue to monitor. 10. Transaminitis, resolved. 11. Mild leukocytosis, resolved. 12. Gastrointestinal and deep venous thrombosis prophylaxis. Continue sequential leg squeezers and Lovenox. Dictated By: Juanjose Alarcon DO /debby/kathia /Document#: [id number]
[2016-10-29] MEDS: ENOXAPARIN 40 MG/0.4 ML SYG SC SCH (10:56)
[2016-10-29] MEDS: DIVALPROEX (EC) 500 MG TAB PO SCH (18:45)
--- NOTE | 2016-10-29 20:45 | CONS ---
Date/Time of Note Date/Time of Note DATE: 10/29/16 TIME: 20:45 Assessment/Plan Assessment/Plan Chief Complaint/Hosp Course Transient anterior ST elevation: occurred during initial hospitalization and then resolved spontaneously. Cath did not show an LAD lesion. LV gram without anterior wall motion abnormalities. The pt had recurrence in the setting of tachycardia (130s) and dopamine. Seemed to resolve after NTG and HR improvement from decreasing dopamine so unclear which was useful but coronary vasospasm is a possibility. Mild trop bump to 2 but now back down. Torsades/PMVT: bradycardia driven in setting of QTC ~600 due to psych meds. No recurrence after holding psych meds Prolonged QTc: due to psych meds; improving NSTEMI: Trop peaked at [address]. [address] elevation?. Echo with EF 50% and possible LAD territory hypokinesis but no akinesis. Cath showed no LAD lesion but a proximal RCA lesion and inferior wall motion abnormalities. A drug eluting stent was placed due to in-stent restenosis. Pt was agreeable to taking meds prior to cardiac cath, then refused. Now was convinced to take it. Compliance remains an issue longterm. Cardiomyopathy: EF ~45% here but poor study. Likely ischemic but may have a component of takotsubo based on EKG and wall motion changes. Parkinson's with dementia: refusing to take meds at times Hypertension Hyperlipidemia -ASA 81 mg daily, Plavix 75 mg daily (most crucial to give to pt and seems to take it when crushed with orange juice) -Imdur 30mg daily -Lipitor 40 mg qhs -off metoprolol -discharge planning, stable for discharge from cardiac standpoint Problems: Consultation Date/Type/Reason Admit Date/Time Oct 19, 2016 at 08:26 Type of Consultation: Cardiology 24 HR Interval Summary Free Text/Dictation No acute events. Detailed Summary Additional Comments 14 point review of systems without changes. Exam/Review of Systems Vital Signs Vitals Vital Signs Date Time Temp Pulse Resp B/P Pulse Ox O2 Delivery O2 Flow Rate FiO2 10/29/16 20:10 89 10/29/16 19:59 98.4 21 154/74 98 10/27/16 18:30 Room Air 10/26/16 02:11 21 10/25/16 08:00 2.0 Intake and Output 10/28/16 10/28/16 10/29/16 15:00 23:00 07:00 Intake Total 400 ml 160 ml Output Total 900 ml 1000 ml Balance -500 ml -840 ml Exam Constitutional: NAD, responsive Neck: non-tender, supple, No jvd Respiratory: clear to auscultation, normal air movement, No crackles/rales, No wheezing Cardiovascular: nl pulses, regular rate and rhythm, No S3, No S4, No edema, No systolic murmur Gastrointestinal: nl liver, spleen, non-tender, soft Extremities: normal pulses, No calf tenderness, No clubbing, No cyanosis, No edema Results Result Diagram: 10/27/1644410/27/16444 Medications Medications Current Medications Clopidogrel Bisulfate (plaVIX) 75 mg DAILY PO Last administered on 10/29/16 08: 38; Admin Dose 75 MG; Start 10/20/16 at 09:00 Aspirin (Aspirin) 81 mg DAILY PO Last administered on 10/29/16 08:39; Admin Dose 81 MG; Start 10/20/16 at 09:00 Atorvastatin Calcium (Lipitor) 40 mg HS PO Last administered on 10/28/16 21:45 ; Admin Dose 40 MG; Start 10/19/16 at 21:00 Acetaminophen (Tylenol Tab) 650 mg Q6H PRN PO PAIN AND OR ELEVATED TEMP Last administered on 10/28/16 10:20; Admin Dose 650 MG; Start 10/20/16 at 08:00 Bisacodyl (Dulcolax) 10 mg DAILY PRN PO CONSTIPATION Last administered on 18:38; Admin Dose 10 MG; Start 10/20/16 at 08:00 Divalproex Sodium (Depakote) 500 mg DAILY@19 PO Last administered on 10/29/16 18:45; Admin Dose 500 MG; Start 10/20/16 at 09:00 Famotidine (Pepcid) 20 mg BID PO Last administered on 10/29/16 08:39; Admin Dose 20 MG; Start 10/20/16 at 09:00 Lorazepam (Ativan) 0.25 mg TID PO Last administered on 10/29/16 12:28; Admin Dose 0.25 MG; Start 10/20/16 at 09:45 Memantine (Namenda) 5 mg BID PO Last administered on 10/29/16 08:41; Admin Dose 5 MG; Start 10/20/16 at 10:00 Docusate Sodium (Colace) 100 mg DAILY PO Last administered on 10/29/16 08:38; Admin Dose 100 MG; Start 10/20/16 at 09:30 Folic Acid (Folic Acid) 1 mg DAILY PO Last administered on 10/29/16 08:38; Admin Dose 1 MG; Start 10/21/16 at 09:30 Gabapentin (Neurontin) 300 mg TID PO Last administered on 10/29/16 12:28; Admin Dose 300 MG; Start 10/20/16 at 09:00 Al Hydrox/Mg Hydrox/Simethicone (Mag-Al Plus) 30 ml Q6 PO Last administered on 10/29/16 18:45; Admin Dose 30 ML; Start 10/20/16 at 12:00 Magnesium Hydroxide (Milk Of Mag) 30 ml HS PO Last administered on 10/28/16 21: 45; Admin Dose 30 ML; Start 10/20/16 at 21:00 Divalproex Sodium (Depakote) 250 mg BID@09,14 PO Last administered on 10/29/16 12:29; Admin Dose 250 MG; Start 10/20/16 at 10:30 Carbidopa/Levodopa (Sinemet Cr (25/ 100)) 1 tab TID PO Last administered on 10/29 12:28; Admin Dose 1 TAB; Start 10/20/16 at 13:00 Isosorbide Mononitrate (Imdur) 30 mg DAILY PO Last administered on 10/29/16 08: 38; Admin Dose 30 MG; Start 10/22/16 at 09:00 IV Flush (NS 10 ml) 10 ml PRN PRN IV IV PROTOCOL; Start 10/23/16 at 18:00 Morphine Sulfate (morphine) 2 mg Q2H PRN IV FOR NON CARDIAC PAIN (4-10); Start 10/26/16 at 14:00 Lorazepam (Ativan) 1 mg Q3H PRN IV AGITATION; Start 10/27/16 at 23:00 Enoxaparin Sodium (Lovenox) 40 mg DAILY SC Last administered on 10/29/16 10:56 ; Admin Dose 40 MG; Start 10/29/16 at 09:30 NNAMDI CARBAJAL MD Oct 29, 2016 20:45
[2016-10-29] MEDS: ATORVASTATIN 40 MG TAB PO SCH (21:00)
[2016-10-29] MEDS: MAGNESIUM HYDROXIDE 30ML CUP PO SCH (21:00)
[2016-10-30] VITALS (10 sets, daily range): BP systolic 94–183; BP diastolic 59–88; PULSE 70–95; RESP 18–20
[2016-10-30] MEDS: AL HYDROX/MG HYDROX/SIMETH 30 ML CUP PO SCH ×4 (06:00→18:00)
[2016-10-30] MEDS: ASPIRIN 81 MG TAB PO SCH (08:58)
[2016-10-30] MEDS: GABAPENTIN 300 MG CAP PO SCH ×2 (08:59→12:34)
[2016-10-30] MEDS: CARBIDOPA/LEVODOPA 25-100 (CR) TAB PO SCH ×2 (08:59→12:34)
[2016-10-30] MEDS: MEMANTINE 5 MG TAB PO SCH (08:59)
[2016-10-30] MEDS: DIVALPROEX (EC) 250 MG TAB PO SCH ×2 (08:59→12:46)
[2016-10-30] MEDS: DOCUSATE SODIUM 100 MG CAP PO SCH (09:00)
[2016-10-30] MEDS: ENOXAPARIN 40 MG/0.4 ML SYG SC SCH ×2 (09:00→12:56)
[2016-10-30] MEDS: CLOPIDOGREL 75 MG TAB PO SCH ×2 (09:00→12:39)
[2016-10-30] MEDS: ISOSORBIDE MONONITRATE(SR)30 MG TAB PO SCH (09:00)
[2016-10-30] MEDS: LORAZEPAM 0.5 MG TAB PO SCH ×2 (09:00→12:34)
[2016-10-30] MEDS: FOLIC ACID 1 MG TAB PO SCH (09:00)
[2016-10-30] MEDS: FAMOTIDINE 20 MG TAB PO SCH (09:00)
--- NOTE | 2016-10-30 10:46 | PN ---
DATE: 10/30/2016 SUBJECTIVE DATA: The patient is stable. The patient was unable to have an MRI yesterday due to lack of cooperation. No other events noted. The patient also refused to take his medications yesterday. OBJECTIVE DATA: VITAL SIGNS: Blood pressure this morning is 183/88, respiration 19, pulse 81, temperature 98.1. HEENT: Head is normocephalic. NECK: Supple. HEART: Regular rate. LUNGS: Show diminished breath sounds at the base. ABDOMEN: Soft, nontender to palpation. No rebound or guarding. EXTREMITIES: Negative for clubbing, cyanosis. No edema. DERMATOLOGIC: Clean. No rashes. MUSCULOSKELETAL: No joint effusion. NEUROLOGIC: Unchanged exam. MEDICATIONS: Reviewed. LABORATORY AND DIAGNOSTIC DATA: Pending. ASSESSMENT AND PLAN: 1. [id number] myocardial infarction. The patient is status post cardiac cath. The patient is status post percutaneous coronary intervention to the right coronary artery. Continue current medical management. Continue aspirin and Plavix. 2. Arrhythmia, resolved, likely from psychotropic medications. 3. Hypertension. We will continue Imdur. We will add a calcium channel klaus if blood pressure remains elevated. A component of anxiety is contributing. We will monitor very closely. 4. Dyslipidemia. Continue statin therapy. 5. Parkinson's disease with dementia. The patient has been seen by Neurology. The patient is unable to get an MRI due to lack of cooperation. Will continue current parkinsonian medication. 6. Dysphagia. Continue to work with Speech Therapy. 7. Nonoliguric acute kidney injury, resolved. 8. Anemia. Monitor H and H levels. 9. Bipolar disorder psychosis. Continue to monitor. 10. Transaminitis, resolved. 11. Mild leukocytosis, resolved. 12. Gastrointestinal, deep venous thrombosis prophylaxis. Continue proton pump inhibitor, Lovenox . DISPOSITION: The patient is pending transfer to long term facility once the patient's finds a facility. Dictated By: Juanjose Alarcon DO /debby/daiana /Document#: [id number]
--- NOTE | 2016-10-30 15:44 | CONS ---
Date/Time of Note Date/Time of Note DATE: 10/30/16 TIME: 15:44 Assessment/Plan Assessment/Plan Chief Complaint/Hosp Course Transient anterior ST elevation: occurred during initial hospitalization and then resolved spontaneously. Cath did not show an LAD lesion. LV gram without anterior wall motion abnormalities. The pt had recurrence in the setting of tachycardia (130s) and dopamine. Seemed to resolve after NTG and HR improvement from decreasing dopamine so unclear which was useful but coronary vasospasm is a possibility. Mild trop bump to 2 but now back down. Torsades/PMVT: bradycardia driven in setting of QTC ~600 due to psych meds. No recurrence after holding psych meds Prolonged QTc: due to psych meds; improving NSTEMI: Trop peaked at 120. Transient anterior ST elevation?. Echo with EF 50% and possible LAD territory hypokinesis but no akinesis. Cath showed no LAD lesion but a proximal RCA lesion and inferior wall motion abnormalities. A drug eluting stent was placed due to in-stent restenosis. Pt was agreeable to taking meds prior to cardiac cath, then refused. Now was convinced to take it. Compliance remains an issue senior living. Cardiomyopathy: EF ~45% here but poor study. Likely ischemic but may have a component of takotsubo based on EKG and wall motion changes. Parkinson's with dementia: refusing to take meds at times Hypertension Hyperlipidemia -ASA 81 mg daily, Plavix 75 mg daily (most crucial to give to pt and seems to take it when crushed with orange juice) -Imdur 30mg daily -Lipitor 40 mg qhs -off metoprolol -discharge planning, stable for discharge from cardiac standpoint Problems: Consultation Date/Type/Reason Admit Date/Time Oct 19, 2016 at 08:26 Type of Consultation: Cardiology 24 HR Interval Summary Free Text/Dictation No acute events. Unable to obtain brain MRI as patient was not cooperative. Detailed Summary Additional Comments 14 point review of systems without changes. Exam/Review of Systems Vital Signs Vitals Vital Signs Date Time Temp Pulse Resp B/P Pulse Ox O2 Delivery O2 Flow Rate FiO2 10/30/16 15:17 98.3 72 18 94/59 96 10/27/16 18:30 Room Air Intake and Output 10/29/16 10/29/16 10/30/16 15:00 23:00 07:00 Intake Total 600 ml Output Total 1200 ml Balance -600 ml Exam Constitutional: NAD, responsive Neck: non-tender, supple, No jvd Respiratory: clear to auscultation, normal air movement, No crackles/rales, No wheezing Cardiovascular: nl pulses, regular rate and rhythm, No S3, No S4, No edema, No systolic murmur Gastrointestinal: nl liver, spleen, non-tender, soft Extremities: normal pulses, No calf tenderness, No clubbing, No cyanosis, No edema Results Result Diagram: 10/27/1644410/27/16444 Medications Medications Current Medications Clopidogrel Bisulfate (plaVIX) 75 mg DAILY PO Last administered on 10/30/16 12: 39; Admin Dose 75 MG; Start 10/20/16 at 09:00 Aspirin (Aspirin) 81 mg DAILY PO Last administered on 10/30/16 08:58; Admin Dose 81 MG; Start 10/20/16 at 09:00 Atorvastatin Calcium (Lipitor) 40 mg HS PO Last administered on 10/28/16 21:45 ; Admin Dose 40 MG; Start 10/19/16 at 21:00 Acetaminophen (Tylenol Tab) 650 mg Q6H PRN PO PAIN AND OR ELEVATED TEMP Last administered on 10/28/16 10:20; Admin Dose 650 MG; Start 10/20/16 at 08:00 Bisacodyl (Dulcolax) 10 mg DAILY PRN PO CONSTIPATION Last administered on 18:38; Admin Dose 10 MG; Start 10/20/16 at 08:00 Divalproex Sodium (Depakote) 500 mg DAILY@19 PO Last administered on 10/29/16 18:45; Admin Dose 500 MG; Start 10/20/16 at 09:00 Famotidine (Pepcid) 20 mg BID PO Last administered on 10/29/16 08:39; Admin Dose 20 MG; Start 10/20/16 at 09:00 Lorazepam (Ativan) 0.25 mg TID PO Last administered on 10/30/16 12:34; Admin Dose 0.25 MG; Start 10/20/16 at 09:45 Memantine (Namenda) 5 mg BID PO Last administered on 10/30/16 08:59; Admin Dose 5 MG; Start 10/20/16 at 10:00 Docusate Sodium (Colace) 100 mg DAILY PO Last administered on 10/29/16 08:38; Admin Dose 100 MG; Start 10/20/16 at 09:30 Folic Acid (Folic Acid) 1 mg DAILY PO Last administered on 10/29/16 08:38; Admin Dose 1 MG; Start 10/21/16 at 09:30 Gabapentin (Neurontin) 300 mg TID PO Last administered on 10/30/16 12:34; Admin Dose 300 MG; Start 10/20/16 at 09:00 Al Hydrox/Mg Hydrox/Simethicone (Mag-Al Plus) 30 ml Q6 PO Last administered on 10/30/16 12:34; Admin Dose 30 ML; Start 10/20/16 at 12:00 Magnesium Hydroxide (Milk Of Mag) 30 ml HS PO Last administered on 10/28/16 21: 45; Admin Dose 30 ML; Start 10/20/16 at 21:00 Divalproex Sodium (Depakote) 250 mg BID@,14 PO Last administered on 10/30/16 12:46; Admin Dose 250 MG; Start 10/20/16 at 10:30 Carbidopa/Levodopa (Sinemet Cr (25/ 100)) 1 tab TID PO Last administered on 10/30 12:34; Admin Dose 1 TAB; Start 10/20/16 at 13:00 Isosorbide Mononitrate (Imdur) 30 mg DAILY PO Last administered on 10/30/16 09: 00; Admin Dose 30 MG; Start 10/22/16 at 09:00 IV Flush (NS 10 ml) 10 ml PRN PRN IV IV PROTOCOL; Start 10/23/16 at 18:00 Morphine Sulfate (morphine) 2 mg Q2H PRN IV FOR NON CARDIAC PAIN (4-10); Start 10/26/16 at 14:00 Lorazepam (Ativan) 1 mg Q3H PRN IV AGITATION; Start 10/27/16 at 23:00 Enoxaparin Sodium (Lovenox) 40 mg DAILY SC Last administered on 10/30/16 12:56 ; Admin Dose 40 MG; Start 10/29/16 at 09:30 NNAMDI CARBAJAL MD Oct 30, 2016 15:44
== END 2016-10-30 18:40 | DRG 247 ==
LOC: EDSTATUS 08:24 → ICU 08:26 → TEL 10-27 18:27
PROVIDERS: ADMIT Internal Medicine Interventional Cardiology; ATTEND Internal Medicine Interventional Cardiology
PROC: B211YZZ Fluoroscopy of Multiple Coronary Arteries using Other Contrast (ICD-10-PCS; 2016-10-19)
PROC: B215YZZ Fluoroscopy of Left Heart using Other Contrast (ICD-10-PCS; 2016-10-19)
PROC: 027034Z Dilation of Coronary Artery, One Artery with Drug-eluting Intraluminal Device, Percutaneous Approach (ICD-10-PCS; principal; 2016-10-19 10:00)
PROC: 4A023N7 Measurement of Cardiac Sampling and Pressure, Left Heart, Percutaneous Approach (ICD-10-PCS; 2016-10-19 10:00)
PROC: 02HV33Z Insertion of Infusion Device into Superior Vena Cava, Percutaneous Approach (ICD-10-PCS; 2016-10-23)
PROC: B548ZZA Ultrasonography of Superior Vena Cava, Guidance (ICD-10-PCS; 2016-10-23)
DX: I21.4 Non-ST elevation (NSTEMI) myocardial infarction (principal); N17.9 Acute kidney failure, unspecified; I42.9 Cardiomyopathy, unspecified; G20 Parkinson's disease; R13.10 Dysphagia, unspecified; G93.89 Other specified disorders of brain; T82.855A Stenosis of coronary artery stent, initial encounter; F02.80 Dementia in other diseases classified elsewhere, unspecified severity, without behavioral disturbance, psychotic disturbance, mood disturbance, and anxiety; E78.5 Hyperlipidemia, unspecified; K21.9 Gastro-esophageal reflux disease without esophagitis; F31.9 Bipolar disorder, unspecified; D64.9 Anemia, unspecified; Z88.0 Allergy status to penicillin; I12.9 Hypertensive chronic kidney disease with stage 1 through stage 4 chronic kidney disease, or unspecified chronic kidney disease; N18.2 Chronic kidney disease, stage 2 (mild); Y84.0 Cardiac catheterization as the cause of abnormal reaction of the patient, or of later complication, without mention of misadventure at the time of the procedure
CPT/HCPCS: 36569; 71010; 76937; 80048; 80076; 81003; 82043; 82553; 82962; 83605; 83735; 84100; 84145; 84155; 84300; 84484; 85025; 87081; 92526; 92610; 92928; 93005; 93306; 93458; C1725; C1760; C1769; C1887; C1894; J0583; J1265; J1644; J1650; J2250; J2270; J3010; J3475; J7030; J7040; J7070; Q9967